=== PATIENT | female | born 1975 | race Caucasian/White ===

== ENCOUNTER 2020-08-02 09:44 | Outpatient (REF) | payer OTHER, SELFPAY ==
[2020-08-04 19:23] LABS: TS Negative Control Passed; TS Panel A 0; TS Panel B 0; TS Positive Control Passed; TSpotTB Negative (SeeBelow)
== END 2020-08-02 09:45 | disposition home or self-care (01) ==
LOC: HO.HMGCLDS 09:44
PROVIDERS: PCP Internal Medicine; Visit Provider Internal Medicine
DX: Z11.1 Encounter for screening for respiratory tuberculosis (principal)
CPT/HCPCS: 86481

== ENCOUNTER 2021-06-06 14:19 | Outpatient (REF) | payer OTHER, SELFPAY ==
[2021-06-06 16:24] LABS: MANUAL DIFF FLAG NO
[2021-06-06 16:29] LABS: Basophils Absolute Auto 0.1 X10*3/uL (0.0-0.2); Basophils Percent Auto 0.5 % (0-2); Eosinophils Absolute Auto 0.1 X10*3/uL (0.0-0.4); Eosinophils Percent Auto 1.1 % (0-4); Hematocrit 35.1 % (37-47); Hemoglobin 11.7 g/dl (12.0-16.0); Imm Gran Abs Auto 0.03 X10*3/uL (0.00-0.03); Imm Gran Pct Auto 0.3 % (0.0-0.4); Lymphocytes Absolute Auto 2.1 X10*3/uL (1.2-4.9); Lymphocytes Percent Auto 20.4 % (20-40); Mean Corpuscular HGB Conc 33.3 g/dl (31.0-35.0); Mean Corpuscular Hemoglobin 31.5 pg (27.0-33.0); Mean Corpuscular Volume 94.6 fL (80-98); Mean Platelet Volume 10.7 fL (9.4-12.3); Monocytes Absolute Auto 0.7 X10*3/uL (0.1-1.2); Monocytes Percent Auto 7.2 % (2-11); Neutrophils Absolute Auto 7.2 X10*3/uL (2.0-8.3); Neutrophils Percent Auto 70.5 % (45-73); Platelet Count 320 X10*3/uL (160-400); Red Blood Count 3.71 X10*6/uL (4.20-5.50); Red Cell Distribution Width 12.4 % (11.0-16.0); White Blood Count 10.2 X10*3/uL (4.8-10.8)
[2021-06-06 16:38] LABS: Alanine Aminotransferase 12 U/L (0-31); Albumin Level 4.4 g/dL (3.5-5.0); Alkaline Phosphatase 53 U/L (39-117); Anion Gap 14 (12-20); Aspartate Amino Transferase 14 U/L (5-31); Bilirubin Total 0.4 mg/dL (0.0-1.0); Blood Urea Nitrogen 17 mg/dL (9-16); Calcium 9.3 mg/dL (8.4-10.2); Carbon Dioxide 24 mmol/L (22-29); Chloride 108 mmol/L (96-108); Estimated Glomerular Filt Rate > 60; Glucose Random 85 mg/dL (60-115); Potassium 4.6 mmol/L (3.3-5.1); Sodium 141 mmol/L (135-145); Total Protein 6.9 g/dL (6.5-8.0)
== END 2021-06-06 14:20 | disposition home or self-care (01) ==
LOC: HO.HMGCLDS 14:19
PROVIDERS: PCP Internal Medicine; Visit Provider Internal Medicine
DX: F31.9 Bipolar disorder, unspecified (principal); J45.40 Moderate persistent asthma, uncomplicated; Z91.09 Other allergy status, other than to drugs and biological substances
CPT/HCPCS: 36415; 80053; 85025

== ENCOUNTER 2021-07-20 08:45 | Emergency (ER) | payer OTHER, SELFPAY ==
--- NOTE | ~2021-07-20 | CT_ITS ---
EXAMINATION: CT ABDOMEN AND PELVIS WITH CONTRAST CLINICAL INFORMATION: Abdominal pain with nausea and vomiting. COMPARISON: Pelvic ultrasound of 12/13/2009 and abdominal ultrasound of 09/13/2009. TECHNIQUE: Multidetector volumetric images were obtained from the superior aspect of the liver through the pubic symphysis following administration 85 mL of Omnipaque 350 intravenous contrast. Sagittal and coronal reformatted images were obtained on the technologist's workstation. Oral contrast: No This CT examination was performed using dose optimization techniques as appropriate, variously including the following: *Automated exposure control *Adjustment of mA and/or kV according to patient size (this includes techniques or standardized protocols for targeted exams where dose is matched to indication/reason for exam; i.e. extremities or head) *Use of iterative reconstruction technique DLP: 640 mGy-cm FINDINGS: LUNG BASES: The visualized lung bases are unremarkable. LIVER, GALLBLADDER, AND BILIARY TREE: The liver is normal in size, shape and attenuation. No intrahepatic biliary ductal dilatation. A 0.3 cm low-attenuation in the liver (series 3 image 17) is too small to characterize, statistically may represent a cyst or hemangioma. The gallbladder is unremarkable with no evidence of radiopaque gallstones, gallbladder wall thickening, or obvious pericholecystic inflammatory changes. PANCREAS: Unremarkable. SPLEEN: Unremarkable. ADRENAL GLANDS: Unremarkable. KIDNEYS AND URETERS: The kidneys are normal in size, shape, and attenuation. No hydronephrosis, hydroureter, or calculi seen. No perinephric stranding. A 0.4 cm low-attenuation lesion in the right mid kidney anteriorly is too small to characterize accurately, statistically may represent a cyst versus tiny angiomyolipoma. BLADDER: Unremarkable. GASTROINTESTINAL TRACT: The small and large bowel are unremarkable. The appendix is unremarkable. Small hiatal hernia. ABDOMINAL WALL: Small umbilical hernia containing fat. Small superior periumbilical hernia containing fat and fluid, measuring 2.9 x 3.0 x 3.6 cm, with the hernial neck measuring 0.9 x 0.6 cm in the craniocaudal and transverse dimension. LYMPH NODES: Normal. VASCULAR: Unremarkable. PELVIC VISCERA: Unremarkable. Changes suggestive of bilateral fallopian tubal ligation. OSSEOUS STRUCTURES: Unremarkable. CT/CT abdomen pelvis w con IMPRESSION: No acute or other significant abnormality is noted to explain the patient's symptoms. Small hiatal hernia. Umbilical and superior periumbilical hernias.
[2021-07-20] MEDS: ondansetron HCL 4 MG/2 ML VIAL IVPUSH ×2 (09:04→09:27)
[2021-07-20 09:05] VITALS: RESP 18
[2021-07-20] MEDS: Morphine Sulfate 4 MG/ML CARTRIDGE IVPUSH (09:05)
[2021-07-20 09:07] LABS: MANUAL DIFF FLAG NO
[2021-07-20] MEDS: 0.9 % Sodium Chloride 1,000 ML 999 ML IV (09:07)
[2021-07-20 09:08] VITALS: BP 129/76; PULSE 70; RESP 18; O2SAT 100
[2021-07-20 09:10] VITALS: BP 126/79; PULSE 70; RESP 18; O2SAT 100; BMI 33.3
[2021-07-20 09:10] LABS: Basophils Absolute Auto 0.1 X10*3/uL (0.0-0.2); Basophils Percent Auto 0.4 % (0-2); Eosinophils Absolute Auto 0.1 X10*3/uL (0.0-0.4); Eosinophils Percent Auto 0.5 % (0-4); Hematocrit 40.1 % (37.0-47.0); Hemoglobin 13.4 g/dl (12.0-16.0); Imm Gran Abs Auto 0.02 X10*3/uL (0.00-0.03); Imm Gran Pct Auto 0.2 % (0.0-0.4); Lymphocytes Absolute Auto 1.8 X10*3/uL (1.2-4.9); Lymphocytes Percent Auto 15.8 % (20-40); Mean Corpuscular HGB Conc 33.4 g/dl (31.0-35.0); Mean Corpuscular Hemoglobin 31.2 pg (27.0-33.0); Mean Corpuscular Volume 93.5 fL (80.0-98.0); Mean Platelet Volume 10.3 fL (9.4-12.3); Monocytes Absolute Auto 0.6 X10*3/uL (0.1-1.2); Monocytes Percent Auto 5.4 % (2-11); Neutrophils Absolute Auto 8.7 x10*3/uL (2.0-8.3); Neutrophils Percent Auto 77.7 % (45-73); Platelet Count 341 X10*3/uL (160-400); Red Blood Count 4.29 X10*6/uL (4.20-5.50); Red Cell Distribution Width 12.5 % (11.0-16.0); White Blood Count 11.2 X10*3/uL (4.8-10.8)
[2021-07-20 09:16] LABS: INTERNATIONAL NORM RATIO 0.9 (0.9-1.1); Prothrombin Time 10.3 SEC (9.9-13.0)
[2021-07-20 09:18] LABS: Partial Thromboplastin Time 36.3 SEC (24.1-38.0)
[2021-07-20] MEDS: Morphine Sulfate 2 MG/ML CARTRIDGE IVPUSH (09:25)
[2021-07-20 09:27] LABS: Alanine Aminotransferase 17 U/L (0-31); Albumin Level 4.6 g/dL (3.5-5.0); Alkaline Phosphatase 65 U/L (39-117); Anion Gap 18 (12-20); Aspartate Amino Transferase 21 U/L (5-31); Bilirubin Direct 0.2 mg/dL (0.0-0.5); Bilirubin Total 0.5 mg/dL (0.0-1.0); Blood Urea Nitrogen 16 mg/dL (9-16); Calcium 9.7 mg/dL (8.4-10.2); Carbon Dioxide 18 mmol/L (22-29); Chloride 107 mmol/L (96-108); Creatinine Clr Calc Pharmacy 93.9; Estimated Glomerular Filt Rate > 60; Glucose Random 121 mg/dL (60-115); Potassium 4.9 mmol/L (3.3-5.1); Sodium 138 mmol/L (135-145); Total Protein 7.8 g/dL (6.5-8.0)
[2021-07-20] MEDS: LORazepam 2 MG/ML VIAL 1 MG IVPUSH (09:27)
[2021-07-20 09:32] LABS: HCG Quantitative < 2 mIU/mL
[2021-07-20 09:39] LABS: Lipase 17 U/L (8-78)
--- NOTE | 2021-07-20 09:42 | ED_ITS ---
HPI - Abdominal Pain General Chief Complaint: Abdominal Pain Stated Complaint: ABD PAIN,N/V/D SINCE 229,FULLY VACCINATED Time Seen by Provider: 07/20/21 08:53 Source: patient Mode of arrival: ambulatory Limitations: no limitations History of Present Illness HPI narrative: 46-year-old female past medical history of IBS, bipolar disorder, asthma, presents to the ED for nausea, vomiting, abdominal pain, diarrhea that began this morning around 02:30. Patient states 5 episodes of diarrhea. Patient states episodes of vomiting. Patient states pain in lower abdomen. no blood in stool. Patient denies any recent long travel. Patient denies any recent hospital admission or any recent antibiotic use. Patient denies any symptoms. Related Data Home Medications Medication Instructions Recorded Confirmed gabapentin 600 mg tablet 600 mg PO TID 02/26/21 Previous Rx's Medication Instructions Recorded fluconazole 150 mg tablet 150 mg PO Q3D 1 Days #1 tab 02/26/21 (Diflucan) albuterol sulfate 90 mcg/actuation 2 puff INHALATION Q6H PRN 30 Days 04/14/21 aerosol inhaler #8.5 g cetirizine 10 mg capsule (Zyrtec) 10 mg PO DAILY PRN 30 Days #30 cap 06/16/21 fluticasone 232 mcg-salmeterol 14 1 inh INHALATION BID #1 ea 06/25/21 mcg/actuation breath activated powdr naproxen 500 mg tablet 500 mg PO BID PRN 10 Days #20 tab 07/20/21 ondansetron HCl 4 mg tablet 4 mg PO Q6H PRN 4 Days #12 tab 07/20/21 (Zofran) oxycodone-acetaminophen 5 mg-325 1 tab PO TID PRN #9 tab 07/20/21 mg tablet (Percocet) Allergies Allergy/AdvReac Type Severity Reaction Status Date / Time divalproex sodium [Depakote] Allergy Unknown Verified 03/05/20 00:00 Review of Systems Review of Systems Yes all other systems are reviewed and are negative Constitutional: Reports as per HPI and Reports no additional constitutional complaints Eyes: Reports as per HPI and Reports no additional eye complaints Reports system reviewed and no additional complaints, except as documented and Reports as per HPI Cardiovascular: Reports as per HPI and Reports no additional cardiovascular complaints Respiratory: Reports as per HPI and Reports no additional respiratory complaints Gastrointestinal: Reports as per HPI, Reports no additional gastrointestinal complaints, Reports abdominal pain, Reports diarrhea, Reports nausea and Reports vomiting Genitourinary: Reports no additional female genitourinary complaints and Reports as per HPI Musculoskeletal: Reports no additional musculoskeletal complaints and Reports as per HPI Reports system reviewed and no additional complaints, except as documented and Reports as per HPI Psychiatric: Reports no additional psychiatric complaints and Reports as per HPI Physical Exam Vital Signs: Vital Signs: Last Vital Signs Pulse 77 07/20/21 13:01 Resp 19 07/20/21 13:01 BP 144/82 H 07/20/21 13:01 Pulse Ox 100 07/20/21 09:10 Body Mass Index 33.3 Const: General: cooperative, healthy appearing, comfortable, no acute distress, well developed, alert and awake Orientation/consciousness: patient oriented x3 HENMT: Head: Yes normal to inspection, Yes No palpable skull fracture present, Yes normocephalic, Yes atraumatic and No abrasion Eyes: General: appearance normal, both eyes and all related structures Neck: Neck: Yes normal visual inspection, Yes full ROM, Yes no lymphadenopathy, Yes no meningeal signs, Yes trachea midline, Yes supple, No anterior neck swelling and No tender Chest: Chest palpation & inspection: normal inspection of the chest and normal palpation of entire chest wall Resp: Effort & Inspection: normal respiratory effort and able to speak in complete sentences Auscultation: clear to auscultation bilaterally Cardio: Jugular venous distension: no JVD Heart sounds: S1 normal heart sound present and S2 normal heart sound present GI: Inspection: Yes normal to inspection and No abdominal wall ecchymosis Palpation (GI): Soft to palpation, not firm, Tenderness to palpation present (GI) (Generalized tenderness), Guarding due to palpation present (GI) and not rigid : General: No CVA tenderness and Yes no CVA tenderness Back/Spine/Pelvis: Back: no CVA tenderness, No CVA tenderness and No back tenderness Skin: General skin exam: no rashes or lesions noted and elasticity normal Neuro: General: patient oriented x3, gait normal, no meningeal signs and CN's II-XI intact bilaterally Cranial nerves: Yes CN's II-XII intact bilaterally Extrem: General: Yes normal to inspection and Yes full ROM Psych: Appearance: grossly normal, well kempt and not disheveled Course Course Course Narrative: Patient will have labs drawn, pain medication, IV fluids. Patient admits she is not . Reevaluation(s) Reevaluation #1: negative. Was sent for CT scan. Do not suspect ectopic . Morphine, Ativan, fluids ordered. COVID Riggs ordered. Patient informed to give a stool sample. Reevaluation #2: Abdominal CT scan came back normal and only shows hernias that are not incacerated. UA negative. Patient states no longer able to give any stool sample. Patient given given Toradol. Patient states some pain relief but still having pain. Abdomen re-examined and not tender on palpation. Option of admission for intractable abdominal pain was discussed with patient, but patient refused and preferred to go home and try p.o. medications. Patient states if she does not improve she would return to the ED. I do not Suspect cardiac etiology. Patient woke up with lower abdominal pain with nausea, vomiting, and diarrhea. patient's covid swab is negatvie. Time: 12:49 MDM - Abdominal Pain MDM Narrative Medical decision making narrative: gastroenteritis/abdominal pain Lab Data Result diagrams: 07/20/21 09:01 07/20/21 09:01 Labs: Lab Results 07/20/21 07/20/21 07/20/21 Range/Units 09:01 09:01 09:01 WBC 11.2 H (4.8-10.8) X10*3/uL RBC 4.29 (4.20-5.50) X10*6/uL Hgb 13.4 (12.0-16.0) g/dl Hct 40.1 (37.0-47.0) % MCV 93.5 (80.0-98.0) fL MCH 31.2 (27.0-33.0) pg MCHC 33.4 (31.0-35.0) g/dl RDW 12.5 (11.0-16.0) % Plt Count 341 (160-400) X10*3/uL MPV 10.3 (9.4-12.3) fL Immature Gran % (Auto) 0.2 (0.0-0.4) % Neut % (Auto) 77.7 H (45-73) % Lymph % (Auto) 15.8 L (20-40) % [place] % (Auto) 5.4 (2-11) % Eos % (Auto) 0.5 (0-4) % Baso % (Auto) 0.4 (0-2) % Lymph # (Auto) 1.8 (1.2-4.9) X10*3/uL [place] # (Auto) 0.6 (0.1-1.2) X10*3/uL Eos # (Auto) 0.1 (0.0-0.4) X10*3/uL Baso # (Auto) 0.1 (0.0-0.2) X10*3/uL Abs Immat Gran (auto) 0.02 (0.00-0.03) X10*3/uL Absolute Neuts (auto) 8.7 H (2.0-8.3) x10*3/uL Absolute Nucleated RBC 0.000 (0.0-0.012) X10*3/uL Nucleated RBC % (auto) 0.0 (0.0-0.2) /100WBC PT 10.3 (9.9-13.0) SEC INR 0.9 (0.9-1.1) APTT 36.3 (24.1-38.0) SEC Sodium 138 (135-145) mmol/L Potassium 4.9 (3.3-5.1) mmol/L Chloride 107 (96-108) mmol/L Carbon Dioxide 18 L (22-29) mmol/L Anion Gap 18 (12-20) BUN 16 (9-16) mg/dL Creatinine 0.85 (0.5-1.4) mg/dL Estim Creat Clear Calc 93.9 Estimated GFR > 60 Random Glucose 121 H (60-115) mg/dL Calcium 9.7 (8.4-10.2) mg/dL Total Bilirubin 0.5 (0.0-1.0) mg/dL Direct Bilirubin 0.2 (0.0-0.5) mg/dL AST 21 D (5-31) U/L ALT 17 (0-31) U/L Alkaline Phosphatase 65 D (39-117) U/L Total Protein 7.8 (6.5-8.0) g/dL Albumin 4.6 (3.5-5.0) g/dL Lipase 17 (8-78) U/L Beta HCG, Quant < 2 mIU/mL Urine Color Urine Appearance Urine pH (5.0-8.0) Ur Specific [place] (1.005-1.025) Urine Protein (NEG-TRACE) MG/DL Urine Glucose (UA) (NEG) MG/DL Urine Ketones (NEG) MG/DL Urine Blood (NEG) Urine Nitrite (NEG) Ur Leukocyte Esterase (NEG) Urine Test (NEGATIVE) COVID-19 (JAY) (Negative) COVID-19 Clin Com 07/20/21 07/20/21 07/20/21 Range/Units 10:32 11:29 11:29 WBC (4.8-10.8) X10*3/uL RBC (4.20-5.50) X10*6/uL Hgb (12.0-16.0) g/dl Hct (37.0-47.0) % MCV (80.0-98.0) fL MCH (27.0-33.0) pg MCHC (31.0-35.0) g/dl RDW (11.0-16.0) % Plt Count (160-400) X10*3/uL MPV (9.4-12.3) fL Immature Gran % (Auto) (0.0-0.4) % Neut % (Auto) (45-73) % Lymph % (Auto) (20-40) % [place] % (Auto) (2-11) % Eos % (Auto) (0-4) % Baso % (Auto) (0-2) % Lymph # (Auto) (1.2-4.9) X10*3/uL [place] # (Auto) (0.1-1.2) X10*3/uL Eos # (Auto) (0.0-0.4) X10*3/uL Baso # (Auto) (0.0-0.2) X10*3/uL Abs Immat Gran (auto) (0.00-0.03) X10*3/uL Absolute Neuts (auto) (2.0-8.3) x10*3/uL Absolute Nucleated RBC (0.0-0.012) X10*3/uL Nucleated RBC % (auto) (0.0-0.2) /100WBC PT (9.9-13.0) SEC INR (0.9-1.1) APTT (24.1-38.0) SEC Sodium (135-145) mmol/L Potassium (3.3-5.1) mmol/L Chloride (96-108) mmol/L Carbon Dioxide (22-29) mmol/L Anion Gap (12-20) BUN (9-16) mg/dL Creatinine (0.5-1.4) mg/dL Estim Creat Clear Calc Estimated GFR Random Glucose (60-115) mg/dL Calcium (8.4-10.2) mg/dL Total Bilirubin (0.0-1.0) mg/dL Direct Bilirubin (0.0-0.5) mg/dL AST (5-31) U/L ALT (0-31) U/L Alkaline Phosphatase (39-117) U/L Total Protein (6.5-8.0) g/dL Albumin (3.5-5.0) g/dL Lipase (8-78) U/L Beta HCG, Quant mIU/mL Urine Color YELLOW Urine Appearance CLEAR Urine pH 7.5 (5.0-8.0) Ur Specific [place] 1.020 (1.005-1.025) Urine Protein NEG (NEG-TRACE) MG/DL Urine Glucose (UA) NEG (NEG) MG/DL Urine Ketones NEG (NEG) MG/DL Urine Blood NEG (NEG) Urine Nitrite NEG (NEG) Ur Leukocyte Esterase NEG (NEG) Urine Test NEGATIVE (NEGATIVE) COVID-19 (JAY) Negative (Negative) COVID-19 Clin Com See Note Discharge Plan Discharge Clinical Impression: Gastroenteritis, Abdominal pain Patient Disposition: Home, Self-Care Instructions: Gastroenteritis (ED), Abdominal Pain (ED) Additional Instructions: Please follow-up with your primary care provider tomorrow for stool culture due to diarrhea with abdominal pain. Return to ED for any worsening abdominal pain, vomiting, diarrhea with blood, fever, chills, chest pain, shortness of breath, dysuria, hematuria, flank pain, dizziness, or any other concerning symptoms. or any other concerning symptoms. Prescriptions: New naproxen 500 mg tablet 500 mg PO BID PRN (Reason: pain) 10 Days Qty: 20 RF: 0 ondansetron HCl [Zofran] 4 mg tablet 4 mg PO Q6H PRN (Reason: pain) 4 Days Qty: 12 RF: 0 oxycodone-acetaminophen [Percocet] 5-325 mg tablet 1 tab PO TID PRN (Reason: pain) Qty: 9 RF: 0 No Action albuterol sulfate 90 mcg/actuation HFA aerosol inhaler 2 puff inhalation Q6H PRN (Reason: bronchospasm) 30 Days Qty: 8.5 RF: 0 Zyrtec 10 mg capsule 10 mg PO DAILY PRN (Reason: allergy symptoms) 30 Days Qty: 30 RF: 0 fluticasone propion-salmeterol 232-14 mcg/actuation aerosol powdr breath activated 1 inh inhalation BID Qty: 1 RF: 0 gabapentin 600 mg tablet 600 mg PO TID RF: 0 fluconazole [Diflucan] 150 mg tablet 150 mg PO Q3D 1 Days Qty: 1 RF: 0 Stand Alone Forms: Work/School Release Interventions: ED Discharge Assessment Last Done: 07/20/21 13:02 Discharge Date/Time: 07/20/21 13:03 Print Language: Icelandic [facility] Family History Family History (Updated 02/26/21 @ 10:56 by Lula Jones CMA) Other Mental health disorder Social History Social History Housing: Apartment Patient Tobacco Use Status: Former Tobacco user Advance Directives: No Patient : No Current occupational status: unemployed
[2021-07-20 10:51] LABS: COVID-19 Test Negative (Negative)
[2021-07-20] MEDS: iohexoL 350 MG/ML 100 ML INFUS..BTL 85 ML IV (11:13)
[2021-07-20] MEDS: Metoclopramide HCl 10 MG/2 ML VIAL IVPUSH (11:20)
[2021-07-20 11:39] LABS: Appearance Urine CLEAR; Color Urine YELLOW; Glucose Urine UA NEG (NEG); Leukocyte Esterase Urine NEG (NEG); Nitrite Urine NEG (NEG); PH 7.5 (5.0-8.0); Urine Blood NEG (NEG); Urine Ketones NEG (NEG); Urine Protein NEG (NEG-TRACE)
[2021-07-20 11:44] LABS: UPreg QC Valid YES; Urine Pregnancy NEGATIVE (NEGATIVE)
[2021-07-20] MEDS: Ketorolac Tromethamine 15 MG/ML VIAL 30 MG IVPUSH (12:19)
[2021-07-20 13:01] VITALS: BP 144/82; PULSE 77; RESP 19
== END 2021-07-20 13:03 | disposition home or self-care (01) ==
PROVIDERS: Physician Assistant; Emergency Provider Emergency Medicine Emergency Medical Services; PCP Internal Medicine
DX: K52.9 Noninfective gastroenteritis and colitis, unspecified (principal); Z20.822 Contact with and (suspected) exposure to COVID-19; Z79.899 Other long term (current) drug therapy
CPT/HCPCS: 36415; 74177; 80053; 81003; 81025; 82248; 83690; 84702; 85025; 85610; 85730; 87635; 96361; 96374; 96375; 96376; 99284; J1885; J2060; J2270; J2405; J2765; Q9967

== ENCOUNTER 2021-07-22 06:42 | Emergency (ER) | payer OTHER, SELFPAY ==
--- NOTE | ~2021-07-22 | CT_ITS ---
EXAMINATION: CT ABDOMEN AND PELVIS WITH CONTRAST CLINICAL INFORMATION: Diffuse abdominal pain COMPARISON: Previous CT of the abdomen and pelvis most recent 07/20/2021 TECHNIQUE: Multidetector volumetric images were obtained from the superior aspect of the liver through the pubic symphysis following administration 85 mL of Omnipaque 350 intravenous contrast. Sagittal and coronal reformatted images were obtained on the technologist's workstation. Oral contrast: Yes This CT examination was performed using dose optimization techniques as appropriate, variously including the following: *Automated exposure control *Adjustment of mA and/or kV according to patient size (this includes techniques or standardized protocols for targeted exams where dose is matched to indication/reason for exam; i.e. extremities or head) *Use of iterative reconstruction technique DLP: 691 mGy-cm FINDINGS: LUNG BASES: The visualized lung bases are unremarkable. LIVER, GALLBLADDER, AND BILIARY TREE: There is a small 3 mm low-attenuation lesion in the medial segment the left lobe of the liver that is stable. This is too small to definitively characterize but may represent a small cyst. The liver is otherwise unremarkable. The gallbladder is unremarkable. PANCREAS: Unremarkable. SPLEEN: Unremarkable. ADRENAL GLANDS: Unremarkable. KIDNEYS AND URETERS: The kidneys are normal in size, shape, and attenuation. No hydronephrosis, hydroureter, or calculi seen. No perinephric stranding. BLADDER: Unremarkable. GASTROINTESTINAL TRACT: There is mild wall thickening of the colon questionable for colitis. The small and large bowel is otherwise unremarkable. The appendix is unremarkable. ABDOMINAL WALL: There are small umbilical and supraumbilical hernias containing fat. LYMPH NODES: Normal. VASCULAR: Unremarkable. PELVIC VISCERA: Unremarkable. OSSEOUS STRUCTURES: Unremarkable. CT/CT abdomen pelvis w con IMPRESSION: Question mild colitis. Fleischner guidelines were followed.
[2021-07-22 06:52] VITALS: BP 172/72; PULSE 116; RESP 18; TEMP 36.7; O2SAT 97; BMI 31.8
--- NOTE | 2021-07-22 07:57 | ED.ABDPAIN ---
HPI - Abdominal Pain General Chief Complaint: Abdominal Pain Stated Complaint: N/V/D Time Seen by Provider: 07/22/21 07:45 Source: patient Mode of arrival: ambulatory Limitations: no limitations History of Present Illness HPI narrative: Patient was seen 2 days prior had a workup including a CT that was negative, now back screaming in pain. patient with vomiting and diarrhea. MD elicited complaint: abdominal pain Onset (ago): hour(s) Pain Consistency: constant Location: diffuse Severity: severe Quality: cramping Associated symptoms: nausea, vomiting and diarrhea Related Data Home Medications Medication Instructions Recorded Confirmed gabapentin 600 mg tablet 600 mg PO TID 02/26/21 Previous Rx's Medication Instructions Recorded fluconazole 150 mg tablet 150 mg PO Q3D 1 Days #1 tab 02/26/21 (Diflucan) albuterol sulfate 90 mcg/actuation 2 puff INHALATION Q6H PRN 30 Days 04/14/21 aerosol inhaler #8.5 g cetirizine 10 mg capsule (Zyrtec) 10 mg PO DAILY PRN 30 Days #30 cap 06/16/21 fluticasone 232 mcg-salmeterol 14 1 inh INHALATION BID #1 ea 06/25/21 mcg/actuation breath activated powdr naproxen 500 mg tablet 500 mg PO BID PRN 10 Days #20 tab 07/20/21 ondansetron HCl 4 mg tablet 4 mg PO Q6H PRN 4 Days #12 tab 07/20/21 (Zofran) oxycodone-acetaminophen 5 mg-325 1 tab PO TID PRN #9 tab 07/20/21 mg tablet (Percocet) ciprofloxacin HCl 500 mg tablet 500 mg PO BID #20 tab 07/22/21 (Cipro) metronidazole 500 mg tablet 500 mg PO TID #30 tab 07/22/21 Allergies Allergy/AdvReac Type Severity Reaction Status Date / Time divalproex sodium [Depakote] Allergy Unknown Verified 03/05/20 00:00 Review of Systems Constitutional: Reports no additional constitutional complaints Eyes: Reports no additional eye complaints Denies dizziness Cardiovascular: Reports no additional cardiovascular complaints Respiratory: Reports as per HPI Gastrointestinal: Reports no additional gastrointestinal complaints Genitourinary: Reports no additional female genitourinary complaints Musculoskeletal: Reports no additional musculoskeletal complaints Skin/Breast: Denies rash Reports system reviewed and no additional complaints, except as documented, Denies dizziness and Denies Sensory deficit (Neuro) Psychiatric: Denies anxiety Physical Exam Vital Signs: Vital Signs: Last Vital Signs Temp 98.1 F 07/22/21 06:52 Pulse 90 07/22/21 08:38 Resp 20 07/22/21 08:38 BP 116/55 L 07/22/21 11:17 Pulse Ox 97 07/22/21 08:38 Body Mass Index 31.8 Const: Other: female screaming, crying, moaning in pain. pain and out of proportion to physical exam Nutritional Appearance: average body habitus Orientation/consciousness: oriented to person and patient oriented x3 Limitations: no limitations HENMT: Head: Yes normal to inspection Ears: external ears normal General nose exam: Normal external nose present Mouth: Normal oral and palatal mucosa present and oropharynx normal Throat: Yes posterior oropharynx normal Eyes: General: appearance normal, both eyes and all related structures Neck: Other: supple Neck: Yes normal visual inspection Chest: Chest palpation & inspection: normal inspection of the chest Resp: Auscultation: clear to auscultation bilaterally Cardio: Jugular venous distension: no JVD Rate: regular rate Rhythm: regular rhythm Heart sounds: S1 normal heart sound present and S2 normal heart sound present GI: Inspection: Yes normal to inspection Palpation (GI): Soft to palpation, nontender and No hepatosplenomegaly present Auscultation: normal bowel sounds : General: Yes no CVA tenderness Back/Spine/Pelvis: Back: no CVA tenderness Skin: General skin exam: no rashes or lesions noted Neuro: General: oriented to person and patient oriented x3 Cranial nerves: Yes CN's II-XII intact bilaterally Motor exam (neuro): 5/5 motor strength present throughout Sensory Exam: No Sensory deficit (Neuro) Extrem: General: Yes normal to inspection Psych: Appearance: grossly normal Course Reevaluation(s) Reevaluation #1: Discussed with mother who is nursing mixing place supervisor, will CT again with IV contrast Time: 09:36 Reevaluation #2: very mild colitis seen on CT, will have patient give stool sample and check for cdiff Time: 12:09 MDM - Abdominal Pain Lab Data Result diagrams: 07/22/21 08:16 07/22/21 08:16 Labs: Lab Results 07/22/21 07/22/21 07/22/21 Range/Units 08:16 08:16 11:18 WBC 12.1 H (4.8-10.8) X10*3/uL RBC 3.88 L (4.20-5.50) X10*6/uL Hgb 11.9 L (12.0-16.0) g/dl Hct 36.4 L (37.0-47.0) % MCV 93.8 (80.0-98.0) fL MCH 30.7 (27.0-33.0) pg MCHC 32.7 (31.0-35.0) g/dl RDW 12.4 (11.0-16.0) % Plt Count 303 (160-400) X10*3/uL MPV 10.4 (9.4-12.3) fL Immature Gran % (Auto) 0.5 H (0.0-0.4) % Neut % (Auto) 82.1 H (45-73) % Lymph % (Auto) 11.5 L (20-40) % [place] % (Auto) 5.2 (2-11) % Eos % (Auto) 0.3 (0-4) % Baso % (Auto) 0.4 (0-2) % Lymph # (Auto) 1.4 (1.2-4.9) X10*3/uL [place] # (Auto) 0.6 (0.1-1.2) X10*3/uL Eos # (Auto) 0.0 (0.0-0.4) X10*3/uL Baso # (Auto) 0.1 (0.0-0.2) X10*3/uL Abs Immat Gran (auto) 0.06 H (0.00-0.03) X10*3/uL Absolute Neuts (auto) 9.9 H (2.0-8.3) x10*3/uL Absolute Nucleated RBC 0.000 (0.0-0.012) X10*3/uL Nucleated RBC % (auto) 0.0 (0.0-0.2) /100WBC Sodium 141 (135-145) mmol/L Potassium 3.7 D (3.3-5.1) mmol/L Chloride 111 H (96-108) mmol/L Carbon Dioxide 21 L (22-29) mmol/L Anion Gap 13 (12-20) BUN 17 H (9-16) mg/dL Creatinine 0.84 (0.5-1.4) mg/dL Estim Creat Clear Calc 93.1 Estimated GFR > 60 Random Glucose 122 H (60-115) mg/dL Calcium 9.0 D (8.4-10.2) mg/dL Total Bilirubin 0.5 (0.0-1.0) mg/dL AST 15 (5-31) U/L ALT 13 (0-31) U/L Alkaline Phosphatase 56 (39-117) U/L Total Protein 6.6 (6.5-8.0) g/dL Albumin 4.2 (3.5-5.0) g/dL Lipase 20 (8-78) U/L Urine Color YELLOW Urine Appearance CLEAR Urine pH 5.5 (5.0-8.0) Ur Specific [place] 1.010 (1.005-1.025) Urine Protein NEG (NEG-TRACE) MG/DL Urine Glucose (UA) NEG (NEG) MG/DL Urine Ketones 15 (NEG) MG/DL Urine Blood NEG (NEG) Urine Nitrite NEG (NEG) Ur Leukocyte Esterase NEG (NEG) Urine Opiates Screen (Not Detect) Urine Fentanyl Screen (Not Detect) Ur Barbiturates Screen (Not Detect) Ur Phencyclidine Scrn (Not Detect) Ur Amphetamines Screen (Not Detect) U Benzodiazepines Scrn (Not Detect) Urine Cocaine Screen (Not Detect) U Marijuana (THC) Screen (Not Detect) 07/22/21 Range/Units 11:18 WBC (4.8-10.8) X10*3/uL RBC (4.20-5.50) X10*6/uL Hgb (12.0-16.0) g/dl Hct (37.0-47.0) % MCV (80.0-98.0) fL MCH (27.0-33.0) pg MCHC (31.0-35.0) g/dl RDW (11.0-16.0) % Plt Count (160-400) X10*3/uL MPV (9.4-12.3) fL Immature Gran % (Auto) (0.0-0.4) % Neut % (Auto) (45-73) % Lymph % (Auto) (20-40) % [place] % (Auto) (2-11) % Eos % (Auto) (0-4) % Baso % (Auto) (0-2) % Lymph # (Auto) (1.2-4.9) X10*3/uL [place] # (Auto) (0.1-1.2) X10*3/uL Eos # (Auto) (0.0-0.4) X10*3/uL Baso # (Auto) (0.0-0.2) X10*3/uL Abs Immat Gran (auto) (0.00-0.03) X10*3/uL Absolute Neuts (auto) (2.0-8.3) x10*3/uL Absolute Nucleated RBC (0.0-0.012) X10*3/uL Nucleated RBC % (auto) (0.0-0.2) /100WBC Sodium (135-145) mmol/L Potassium (3.3-5.1) mmol/L Chloride (96-108) mmol/L Carbon Dioxide (22-29) mmol/L Anion Gap (12-20) BUN (9-16) mg/dL Creatinine (0.5-1.4) mg/dL Estim Creat Clear Calc Estimated GFR Random Glucose (60-115) mg/dL Calcium (8.4-10.2) mg/dL Total Bilirubin (0.0-1.0) mg/dL AST (5-31) U/L ALT (0-31) U/L Alkaline Phosphatase (39-117) U/L Total Protein (6.5-8.0) g/dL Albumin (3.5-5.0) g/dL Lipase (8-78) U/L Urine Color Urine Appearance Urine pH (5.0-8.0) Ur Specific [place] (1.005-1.025) Urine Protein (NEG-TRACE) MG/DL Urine Glucose (UA) (NEG) MG/DL Urine Ketones (NEG) MG/DL Urine Blood (NEG) Urine Nitrite (NEG) Ur Leukocyte Esterase (NEG) Urine Opiates Screen POSITIVE H (Not Detect) Urine Fentanyl Screen Not Detected (Not Detect) Ur Barbiturates Screen Not Detected (Not Detect) Ur Phencyclidine Scrn Not Detected (Not Detect) Ur Amphetamines Screen Not Detected (Not Detect) U Benzodiazepines Scrn Not Detected (Not Detect) Urine Cocaine Screen Not Detected (Not Detect) U Marijuana (THC) Screen POSITIVE H (Not Detect) Discharge Plan Discharge Clinical Impression: Colitis Patient Disposition: Home, Self-Care Instructions: Colitis (ED) Additional Instructions: clear liquid diet for 48 hours Prescriptions: New ciprofloxacin HCl [Cipro] 500 mg tablet 500 mg PO BID Qty: 20 RF: 0 metronidazole 500 mg tablet 500 mg PO TID Qty: 30 RF: 0 No Action albuterol sulfate 90 mcg/actuation HFA aerosol inhaler 2 puff inhalation Q6H PRN (Reason: bronchospasm) 30 Days Qty: 8.5 RF: 0 Zyrtec 10 mg capsule 10 mg PO DAILY PRN (Reason: allergy symptoms) 30 Days Qty: 30 RF: 0 fluticasone propion-salmeterol 232-14 mcg/actuation aerosol powdr breath activated 1 inh inhalation BID Qty: 1 RF: 0 naproxen 500 mg tablet 500 mg PO BID PRN (Reason: pain) 10 Days Qty: 20 RF: 0 ondansetron HCl [Zofran] 4 mg tablet 4 mg PO Q6H PRN (Reason: pain) 4 Days Qty: 12 RF: 0 oxycodone-acetaminophen [Percocet] 5-325 mg tablet 1 tab PO TID PRN (Reason: pain) Qty: 9 RF: 0 gabapentin 600 mg tablet 600 mg PO TID RF: 0 fluconazole [Diflucan] 150 mg tablet 150 mg PO Q3D 1 Days Qty: 1 RF: 0 Referrals: Shonda Caldwell MD [Primary Care Provider] - 5 days [facility] Family History Family History (Updated 02/26/21 @ 10:56 by Lula Jones CMA) Other Mental health disorder Social History Social History Housing: Apartment Patient Tobacco Use Status: Former Tobacco user Advance Directives: No Advance Directives Information Provided: No Current occupational status: unemployed
[2021-07-22 08:08] VITALS: BP 152/90; PULSE 79; RESP 20; O2SAT 97
[2021-07-22 08:20] LABS: MANUAL DIFF FLAG NO
[2021-07-22 08:24] LABS: Basophils Absolute Auto 0.1 X10*3/uL (0.0-0.2); Basophils Percent Auto 0.4 % (0-2); Eosinophils Percent Auto 0.3 % (0-4); Hematocrit 36.4 % (37.0-47.0); Hemoglobin 11.9 g/dl (12.0-16.0); Imm Gran Abs Auto 0.06 X10*3/uL (0.00-0.03); Imm Gran Pct Auto 0.5 % (0.0-0.4); Lymphocytes Absolute Auto 1.4 X10*3/uL (1.2-4.9); Lymphocytes Percent Auto 11.5 % (20-40); Mean Corpuscular HGB Conc 32.7 g/dl (31.0-35.0); Mean Corpuscular Hemoglobin 30.7 pg (27.0-33.0); Mean Corpuscular Volume 93.8 fL (80.0-98.0); Mean Platelet Volume 10.4 fL (9.4-12.3); Monocytes Absolute Auto 0.6 X10*3/uL (0.1-1.2); Monocytes Percent Auto 5.2 % (2-11); Neutrophils Absolute Auto 9.9 x10*3/uL (2.0-8.3); Neutrophils Percent Auto 82.1 % (45-73); Platelet Count 303 X10*3/uL (160-400); Red Blood Count 3.88 X10*6/uL (4.20-5.50); Red Cell Distribution Width 12.4 % (11.0-16.0); White Blood Count 12.1 X10*3/uL (4.8-10.8)
[2021-07-22] MEDS: 0.9 % Sodium Chloride 1,000 ML 999 ML IVCONT ×2 (08:28→09:23)
[2021-07-22] MEDS: Haloperidol Lactate 5 MG/ML VIAL IVPUSH (08:28)
[2021-07-22] MEDS: diphenhydrAMINE HCL 50 MG/ML VIAL 25 MG IVPUSH (08:29)
[2021-07-22] MEDS: Pantoprazole Sodium 40 MG/10 ML VIAL IVPUSH (08:29)
[2021-07-22 08:35] LABS: Alanine Aminotransferase 13 U/L (0-31); Albumin Level 4.2 g/dL (3.5-5.0); Alkaline Phosphatase 56 U/L (39-117); Anion Gap 13 (12-20); Aspartate Amino Transferase 15 U/L (5-31); Bilirubin Total 0.5 mg/dL (0.0-1.0); Blood Urea Nitrogen 17 mg/dL (9-16); Carbon Dioxide 21 mmol/L (22-29); Chloride 111 mmol/L (96-108); Creatinine Clr Calc Pharmacy 93.1; Estimated Glomerular Filt Rate > 60; Glucose Random 122 mg/dL (60-115); Lipase 20 U/L (8-78); Potassium 3.7 mmol/L (3.3-5.1); Sodium 141 mmol/L (135-145); Total Protein 6.6 g/dL (6.5-8.0)
[2021-07-22 08:38] VITALS: BP 148/90; PULSE 90; RESP 20; O2SAT 97
[2021-07-22] MEDS: Ketorolac Tromethamine 15 MG/ML VIAL 30 MG IVPUSH (10:21)
[2021-07-22] MEDS: iohexoL 350 MG/ML 100 ML INFUS..BTL IV (10:50)
[2021-07-22 11:17] VITALS: BP 116/55
[2021-07-22 11:23] LABS: Appearance Urine CLEAR; Color Urine YELLOW; Glucose Urine UA NEG (NEG); Leukocyte Esterase Urine NEG (NEG); Nitrite Urine NEG (NEG); PH 5.5 (5.0-8.0); Urine Blood NEG (NEG); Urine Ketones 15 MG/DL (NEG); Urine Protein NEG (NEG-TRACE)
[2021-07-22 11:41] LABS: Amphetamine Screen Urine Not Detected (Not Detect); Barbiturates, Urine Not Detected (Not Detect); Benzodiazepines Screen Urine Not Detected (Not Detect); Cannabinoid Screen Urine POSITIVE (Not Detect); Cocaine Screen Urine Not Detected (Not Detect); Fentanyl, urine Not Detected (Not Detect); Opiate Screen Urine POSITIVE (Not Detect); Phencyclidine Screen Urine Not Detected (Not Detect)
[2021-07-22] MEDS: PHENobarb/Hyoscy/Atropine/Scop 10 ML ELIXIR PO (11:42)
[2021-07-22] MEDS: metroNIDAZOLE 500 MG TABLET PO (12:29)
[2021-07-22] MEDS: levoFLOXacin 500 MG TABLET PO (12:29)
== END 2021-07-22 12:40 | disposition home or self-care (01) ==
PROVIDERS: Emergency Provider Emergency Medicine; PCP Internal Medicine
DX: K52.9 Noninfective gastroenteritis and colitis, unspecified (principal); R11.2 Nausea with vomiting, unspecified; F11.90 Opioid use, unspecified, uncomplicated; F12.90 Cannabis use, unspecified, uncomplicated
CPT/HCPCS: 36415; 74177; 80053; 80307; 81003; 83690; 85025; 96361; 96374; 96375; 99284; J1200; J1885; J2550; Q9967

== ENCOUNTER 2021-07-24 06:14 | Emergency (ER) | payer OTHER, SELFPAY ==
[2021-07-24 06:17] VITALS: BP 180/102; PULSE 86; O2SAT 98
[2021-07-24 06:24] VITALS: BP 169/107; PULSE 62; RESP 16; TEMP 36.8; O2SAT 99; BMI 33.3
--- NOTE | 2021-07-24 06:37 | ED_ITS ---
HPI - Abdominal Pain General Chief Complaint: Abdominal Pain Stated Complaint: abd pain Time Seen by Provider: 07/24/21 06:36 Source: patient Mode of arrival: ambulatory Limitations: no limitations History of Present Illness HPI narrative: This is the third visit in as many days for this patient with abdominal pain. Patient had a benign abdomen yesterday CT x 2 with second showed very mild colitis so I treated with cipro and flagyl. Patient placed on clear liquid diet yesterday for 48 hours. Her urine tox was positive for opiates and marijuana yesterday. MD elicited complaint: abdominal pain Onset (ago): day(s) Pain Consistency: constant Location: diffuse Severity: severe Quality: cramping and stabbing Associated symptoms: nausea, vomiting and diarrhea Related Data Home Medications Medication Instructions Recorded Confirmed gabapentin 600 mg tablet 600 mg PO TID 02/26/21 Previous Rx's Medication Instructions Recorded fluconazole 150 mg tablet 150 mg PO Q3D 1 Days #1 tab 02/26/21 (Diflucan) albuterol sulfate 90 mcg/actuation 2 puff INHALATION Q6H PRN 30 Days 04/14/21 aerosol inhaler #8.5 g cetirizine 10 mg capsule (Zyrtec) 10 mg PO DAILY PRN 30 Days #30 cap 06/16/21 fluticasone 232 mcg-salmeterol 14 1 inh INHALATION BID #1 ea 06/25/21 mcg/actuation breath activated powdr naproxen 500 mg tablet 500 mg PO BID PRN 10 Days #20 tab 07/20/21 ondansetron HCl 4 mg tablet 4 mg PO Q6H PRN 4 Days #12 tab 07/20/21 (Zofran) oxycodone-acetaminophen 5 mg-325 1 tab PO TID PRN #9 tab 07/20/21 mg tablet (Percocet) ciprofloxacin HCl 500 mg tablet 500 mg PO BID #20 tab 07/22/21 (Cipro) ketorolac 10 mg tablet 10 mg PO Q8H #15 tab 07/22/21 metronidazole 500 mg tablet 500 mg PO TID #30 tab 07/22/21 prednisone 20 mg tablet 60 mg PO DAILY #12 tab 07/24/21 Allergies Allergy/AdvReac Type Severity Reaction Status Date / Time divalproex sodium [Depakote] Allergy Unknown Verified 03/05/20 00:00 Review of Systems Constitutional: Reports no additional constitutional complaints Eyes: Reports no additional eye complaints Denies dizziness Cardiovascular: Reports no additional cardiovascular complaints Respiratory: Reports as per HPI Gastrointestinal: Reports no additional gastrointestinal complaints Genitourinary: Reports no additional female genitourinary complaints Musculoskeletal: Reports no additional musculoskeletal complaints Skin/Breast: Denies rash Reports system reviewed and no additional complaints, except as documented, De nies dizziness and Denies Sensory deficit (Neuro) Psychiatric: Denies anxiety Physical Exam Vital Signs: Vital Signs: Last Vital Signs Temp 98.2 F 07/24/21 06:24 Pulse 74 07/24/21 10:13 Resp 17 07/24/21 10:13 BP 160/76 H 07/24/21 10:13 Pulse Ox 97 07/24/21 07:51 Body Mass Index 33.3 Const: Other: Patient with pain out of proportion to physical findings Nutritional Appearance: average body habitus Orientation/consciousness: oriented to person and patient oriented x3 Limitations: no limitations HENMT: Head: Yes normal to inspection Ears: external ears normal General nose exam: Normal external nose present Mouth: Normal oral and palatal mucosa present and oropharynx normal Throat: Yes posterior oropharynx normal Eyes: General: appearance normal, both eyes and all related structures Neck: Other: supple Neck: Yes normal visual inspection Chest: Chest palpation & inspection: normal inspection of the chest Resp: Auscultation: clear to auscultation bilaterally Cardio: Jugular venous distension: no JVD Rate: regular rate Rhythm: regular rhythm Heart sounds: S1 normal heart sound present and S2 normal heart sound present GI: Other: the abdomen is soft nontender, non focal, no guarding or rebound good BS. : General: Yes no CVA tenderness Back/Spine/Pelvis: Back: no CVA tenderness Skin: General skin exam: no rashes or lesions noted Neuro: General: oriented to person and patient oriented x3 Cranial nerves: Yes CN's II-XII intact bilaterally Motor exam (neuro): 5/5 motor strength present throughout Sensory Exam: No Sensory deficit (Neuro) Extrem: General: Yes normal to inspection Psych: Other: Bizzarre affect with pain out of proportion to physical findings Course Reevaluation(s) Reevaluation #1: With pain out of proportion, normal vitals and labs I asked this patient if she was in opiate withdrawal which she denies. Abdomen remains soft non focal, will not re CT patient. Will continue cipro and flagyl and clear liquid diet for colitis. Time: 08:31 Reevaluation #2: Discussed with patient and her mother, discussed all results will consult Dr. Caldwell and ma home Time: 11:22 Reevaluation #3: Discussed with Dr. Guillen who suggested some steroids for a short course. Patient to [facility] Dr. Caldwell [facility] Time: 11:49 MDM - Abdominal Pain Lab Data Result diagrams: 07/24/21 06:39 07/24/21 06:39 Labs: Lab Results 07/24/21 07/24/21 07/24/21 Range/Units 06:39 06:39 07:48 WBC 10.0 (4.8-10.8) X10*3/uL RBC 3.81 L (4.20-5.50) X10*6/uL Hgb 11.7 L (12.0-16.0) g/dl Hct 35.5 L (37.0-47.0) % MCV 93.2 (80.0-98.0) fL MCH 30.7 (27.0-33.0) pg MCHC 33.0 (31.0-35.0) g/dl RDW 12.5 (11.0-16.0) % Plt Count 284 (160-400) X10*3/uL MPV 10.3 (9.4-12.3) fL Immature Gran % (Auto) 0.3 (0.0-0.4) % Neut % (Auto) 73.1 H (45-73) % Lymph % (Auto) 17.8 L (20-40) % [place] % (Auto) 7.3 (2-11) % Eos % (Auto) 1.0 (0-4) % Baso % (Auto) 0.5 (0-2) % Lymph # (Auto) 1.8 (1.2-4.9) X10*3/uL [place] # (Auto) 0.7 (0.1-1.2) X10*3/uL Eos # (Auto) 0.1 (0.0-0.4) X10*3/uL Baso # (Auto) 0.1 (0.0-0.2) X10*3/uL Abs Immat Gran (auto) 0.03 (0.00-0.03) X10*3/uL Absolute Neuts (auto) 7.3 (2.0-8.3) x10*3/uL Absolute Nucleated RBC 0.000 (0.0-0.012) X10*3/uL Nucleated RBC % (auto) 0.0 (0.0-0.2) /100WBC Sodium 141 (135-145) mmol/L Potassium 3.3 (3.3-5.1) mmol/L Chloride 109 H (96-108) mmol/L Carbon Dioxide 21 L (22-29) mmol/L Anion Gap 14 (12-20) BUN 12 (9-16) mg/dL Creatinine 0.88 (0.5-1.4) mg/dL Estim Creat Clear Calc 90.7 Estimated GFR > 60 Random Glucose 117 H (60-115) mg/dL Calcium 9.1 (8.4-10.2) mg/dL Total Bilirubin 0.5 (0.0-1.0) mg/dL AST 20 (5-31) U/L ALT 17 (0-31) U/L Alkaline Phosphatase 56 (39-117) U/L Total Protein 6.5 (6.5-8.0) g/dL Albumin 4.2 (3.5-5.0) g/dL C. difficile Tox B Gene NEGATIVE (Negative) Discharge Plan Discharge Clinical Impression: Colitis Irritable bowel syndrome Qualifiers: Irritable bowel syndrome type: with diarrhea Qualified Code(s): K58.0 - Irritable bowel syndrome with diarrhea Patient Disposition: Home, Self-Care Instructions: Irritable Bowel Syndrome (ED), Colitis (ED) Prescriptions: New prednisone 20 mg tablet 60 mg PO DAILY Qty: 12 RF: 0 No Action albuterol sulfate 90 mcg/actuation HFA aerosol inhaler 2 puff inhalation Q6H PRN (Reason: bronchospasm) 30 Days Qty: 8.5 RF: 0 Zyrtec 10 mg capsule 10 mg PO DAILY PRN (Reason: allergy symptoms) 30 Days Qty: 30 RF: 0 fluticasone propion-salmeterol 232-14 mcg/actuation aerosol powdr breath activated 1 inh inhalation BID Qty: 1 RF: 0 ciprofloxacin HCl [Cipro] 500 mg tablet 500 mg PO BID Qty: 20 RF: 0 metronidazole 500 mg tablet 500 mg PO TID Qty: 30 RF: 0 ketorolac 10 mg tablet 10 mg PO Q8H Qty: 15 RF: 0 naproxen 500 mg tablet 500 mg PO BID PRN (Reason: pain) 10 Days Qty: 20 RF: 0 ondansetron HCl [Zofran] 4 mg tablet 4 mg PO Q6H PRN (Reason: pain) 4 Days Qty: 12 RF: 0 oxycodone-acetaminophen [Percocet] 5-325 mg tablet 1 tab PO TID PRN (Reason: pain) Qty: 9 RF: 0 gabapentin 600 mg tablet 600 mg PO TID RF: 0 fluconazole [Diflucan] 150 mg tablet 150 mg PO Q3D 1 Days Qty: 1 RF: 0 Referrals: Shonda Caldwell MD [Primary Care Provider] - 1 day (See Dr. Caldwell in the office tomorrow or Dr. Chavez in the [facility] walk in) [facility] Family History Family History Other Mental health disorder Social History Social History Housing: Apartment Alcohol intake: never Patient Tobacco Use Status: Former Tobacco user Smoked in Last 30 Days: No Use of substances other than those prescribed or required for medical reasons: Yes Substance Use Type: Marijuana Substance Use Frequency: Daily Substance Use Frequency Other:: last smoked serjio 1 week ago Last Used Substance: Weeks (ago) Advance Directives: No Advance Directives Information Provided: Yes Patient : No Current occupational status: unemployed
[2021-07-24 06:43] LABS: MANUAL DIFF FLAG NO
[2021-07-24 06:44] LABS: Basophils Absolute Auto 0.1 X10*3/uL (0.0-0.2); Basophils Percent Auto 0.5 % (0-2); Eosinophils Absolute Auto 0.1 X10*3/uL (0.0-0.4); Hematocrit 35.5 % (37.0-47.0); Hemoglobin 11.7 g/dl (12.0-16.0); Imm Gran Abs Auto 0.03 X10*3/uL (0.00-0.03); Imm Gran Pct Auto 0.3 % (0.0-0.4); Lymphocytes Absolute Auto 1.8 X10*3/uL (1.2-4.9); Lymphocytes Percent Auto 17.8 % (20-40); Mean Corpuscular Hemoglobin 30.7 pg (27.0-33.0); Mean Corpuscular Volume 93.2 fL (80.0-98.0); Mean Platelet Volume 10.3 fL (9.4-12.3); Monocytes Absolute Auto 0.7 X10*3/uL (0.1-1.2); Monocytes Percent Auto 7.3 % (2-11); Neutrophils Absolute Auto 7.3 x10*3/uL (2.0-8.3); Neutrophils Percent Auto 73.1 % (45-73); Platelet Count 284 X10*3/uL (160-400); Red Blood Count 3.81 X10*6/uL (4.20-5.50); Red Cell Distribution Width 12.5 % (11.0-16.0)
[2021-07-24] MEDS: 0.9 % Sodium Chloride 1,000 ML 999 ML IVCONT ×2 (06:47→07:42)
[2021-07-24 07:01] LABS: Alanine Aminotransferase 17 U/L (0-31); Albumin Level 4.2 g/dL (3.5-5.0); Alkaline Phosphatase 56 U/L (39-117); Anion Gap 14 (12-20); Aspartate Amino Transferase 20 U/L (5-31); Bilirubin Total 0.5 mg/dL (0.0-1.0); Blood Urea Nitrogen 12 mg/dL (9-16); Calcium 9.1 mg/dL (8.4-10.2); Carbon Dioxide 21 mmol/L (22-29); Chloride 109 mmol/L (96-108); Creatinine Clr Calc Pharmacy 90.7; Estimated Glomerular Filt Rate > 60; Glucose Random 117 mg/dL (60-115); Potassium 3.3 mmol/L (3.3-5.1); Sodium 141 mmol/L (135-145); Total Protein 6.5 g/dL (6.5-8.0)
[2021-07-24] MEDS: diphenhydrAMINE HCL 50 MG/ML VIAL 25 MG IVPUSH (07:33)
[2021-07-24] MEDS: Haloperidol Lactate 5 MG/ML VIAL IVPUSH (07:34)
[2021-07-24] MEDS: LORazepam 2 MG/ML VIAL 1 MG IVPUSH (07:34)
[2021-07-24 07:51] VITALS: BP 158/87; PULSE 72; RESP 15; O2SAT 97
--- NOTE | 2021-07-24 08:03 | PC.NURSE ---
currently pt resting quietly, reports relief after meds. vss. no complaints at this time. fluids infusing without difficulty, pt tolerating well. will continue to monitor.
[2021-07-24 10:02] VITALS: BP 148/85; PULSE 76; RESP 19
--- NOTE | 2021-07-24 10:05 | PC.NURSE ---
pt sleeping, vss. fluids infused without difficulty, pt tolerated well. will continue to monitor.
[2021-07-24 10:13] VITALS: BP 160/76; PULSE 74; RESP 17
[2021-07-24 11:35] LABS: CDiff Gene PCR NEGATIVE (Negative)
[2021-07-24] MEDS: methylPREDNISolone Sod Succ 125 MG/2 ML VIAL IVPUSH (12:02)
[2021-07-24 12:04] VITALS: BP 159/73; PULSE 78; RESP 12; O2SAT 98
--- NOTE | 2021-07-24 12:13 | PC.NURSE ---
pt medically cleared for discharge. meds given as documented, discharge summary given and explained, pt verbalized understanding. pt alert and oriented, vss. pt discharged with her mother.
[2021-07-24 13:04] LABS: C Reactive Protein 0.29 mg/dL (< or = 0.50)
[2021-07-24 14:24] LABS: Erythrocyte Sedimentation Rate 7 MM/HR (0-20)
== END 2021-07-24 12:16 | disposition home or self-care (01) ==
PROVIDERS: Emergency Provider Emergency Medicine; PCP Internal Medicine
DX: K52.9 Noninfective gastroenteritis and colitis, unspecified (principal); K58.0 Irritable bowel syndrome with diarrhea; R10.9 Unspecified abdominal pain
CPT/HCPCS: 36415; 80053; 85025; 85652; 86140; 87045; 87046; 87493; 96361; 96374; 96375; 99285; J1200; J2060; J2550; J2930

== ENCOUNTER 2021-07-25 04:16 | Emergency (ER) | payer OTHER, SELFPAY ==
[2021-07-25 04:29] VITALS: BP 162/96; PULSE 97; O2SAT 97
[2021-07-25 04:30] VITALS: BP 165/94; PULSE 70; RESP 20; TEMP 36.3; O2SAT 99; BMI 30.4
--- NOTE | 2021-07-25 04:33 | ED.ABDPAIN ---
HPI - Abdominal Pain General Chief Complaint: Abdominal Pain Stated Complaint: abd pain Time Seen by Provider: 07/25/21 04:32 Source: patient Mode of arrival: EMS Limitations: no limitations History of Present Illness HPI narrative: patient's history of PTSD anxiety bipolar disorder on multiple medications been here 4 times for abdominal pain which is going on for last 1 week patient had [address] scans multiple labs were done which were stable patient does have ribbon shaped lose stools with diffuse cramping unable to eat much vomited 2 times today on multiple medication which she unable to take also comes here for as she is not getting better. No fever no chills patient was started on Flagyl for possible colitis patient never had colonoscopy or endoscopy in the past and has never seen a leather novelty parts cutter patient on prednisone , Cipro and Flagyl Related Data Home Medications Medication Instructions Recorded Confirmed gabapentin 600 mg tablet 600 mg PO TID 02/26/21 Previous Rx's Medication Instructions Recorded fluconazole 150 mg tablet 150 mg PO Q3D 1 Days #1 tab 02/26/21 (Diflucan) albuterol sulfate 90 mcg/actuation 2 puff INHALATION Q6H PRN 30 Days 04/14/21 aerosol inhaler #8.5 g cetirizine 10 mg capsule (Zyrtec) 10 mg PO DAILY PRN 30 Days #30 cap 06/16/21 fluticasone 232 mcg-salmeterol 14 1 inh INHALATION BID #1 ea 06/25/21 mcg/actuation breath activated powdr naproxen 500 mg tablet 500 mg PO BID PRN 10 Days #20 tab 07/20/21 ondansetron HCl 4 mg tablet 4 mg PO Q6H PRN 4 Days #12 tab 07/20/21 (Zofran) oxycodone-acetaminophen 5 mg-325 1 tab PO TID PRN #9 tab 07/20/21 mg tablet (Percocet) ciprofloxacin HCl 500 mg tablet 500 mg PO BID #20 tab 07/22/21 (Cipro) ketorolac 10 mg tablet 10 mg PO Q8H #15 tab 07/22/21 metronidazole 500 mg tablet 500 mg PO TID #30 tab 07/22/21 prednisone 20 mg tablet 60 mg PO DAILY #12 tab 07/24/21 dicyclomine 20 mg tablet 20 mg PO QID PRN #20 tab 07/25/21 lorazepam 1 mg tablet (Ativan) 1 mg PO TID PRN #20 tab 07/25/21 ondansetron 4 mg disintegrating 4 mg PO Q6-8H PRN #15 tab 07/25/21 tablet Allergies Allergy/AdvReac Type Severity Reaction Status Date / Time divalproex sodium [Depakote] Allergy Unknown Verified 03/05/20 00:00 Review of Systems Review of Systems Yes all other systems are reviewed and are negative Physical Exam Vital Signs: Vital Signs: Last Vital Signs Temp 97.4 F 07/25/21 04:30 Pulse 70 07/25/21 04:30 Resp 20 07/25/21 04:30 BP 165/94 H 07/25/21 04:30 Pulse Ox 99 07/25/21 04:30 Body Mass Index 30.4 Appearance: Alert. Oriented X3. very anxious Eyes: PERRLA, No Nystagmus ENT: Pharynx normal. Oral Mucosa moist Neck: Normal inspection. Neck supple. CVS: Normal heart rate and rhythm. Pulses normal. Respiratory: No respiratory distress. Equal air entry bilateral, no wheezing/rales/rhonchi Abdomen: Soft : Diffuse abdominal tenderness , no guarding or rebound tenderness Bowel sounds are present, no mass palpable, no CVA tenderness Skin: Skin warm and dry. Normal skin color. Normal skin turgor. Extremities: No lower extremity edema. No calf tenderness Neuro: Oriented X 3. No motor deficit. Course Reevaluation(s) Reevaluation #1: patient feeling much better after Ativan likely patient has IBS with anxiety unable to take her medications also patient was placed on Cipro Flagyl and prednisone which may be making her condition worse because of gastritis. Patient's stool is negative for C diff at this time we will like to stop her prednisone Cipro and Flagyl and discharged her home on Ativan and Zofran and Bentyl advised to follow with leather novelty parts cutter if not better come back to ER for IV hydration Time: 06:48 MDM - Abdominal Pain MDM Narrative Medical decision making narrative: patient's symptoms likely from anxiety and IBS will give her Ativan IV fluids and Compazine and watch for some time Medical Records Attestation: I reviewed the patient's medical records. Lab Data Attestation: I reviewed the patient's lab results. Result diagrams: 07/25/21 04:51 07/25/21 04:51 Labs: Lab Results 07/25/21 07/25/21 Range/Units 04:51 04:51 WBC 16.2 H (4.8-10.8) X10*3/uL RBC 3.52 L (4.20-5.50) X10*6/uL Hgb 11.1 L (12.0-16.0) g/dl Hct 32.7 L (37.0-47.0) % MCV 92.9 (80.0-98.0) fL MCH 31.5 (27.0-33.0) pg MCHC 33.9 (31.0-35.0) g/dl RDW 12.6 (11.0-16.0) % Plt Count 277 (160-400) X10*3/uL MPV 11.0 (9.4-12.3) fL Immature Gran % (Auto) 0.4 (0.0-0.4) % Neut % (Auto) 83.4 H (45-73) % Lymph % (Auto) 9.8 L (20-40) % [place] % (Auto) 6.2 (2-11) % Eos % (Auto) 0.1 (0-4) % Baso % (Auto) 0.1 (0-2) % Lymph # (Auto) 1.6 (1.2-4.9) X10*3/uL [place] # (Auto) 1.0 (0.1-1.2) X10*3/uL Eos # (Auto) 0.0 (0.0-0.4) X10*3/uL Baso # (Auto) 0.0 (0.0-0.2) X10*3/uL Abs Immat Gran (auto) 0.06 H (0.00-0.03) X10*3/uL Absolute Neuts (auto) 13.5 H (2.0-8.3) x10*3/uL Absolute Nucleated RBC 0.000 (0.0-0.012) X10*3/uL Nucleated RBC % (auto) 0.0 (0.0-0.2) /100WBC Sodium 139 (135-145) mmol/L Potassium 3.5 (3.3-5.1) mmol/L Chloride 109 H (96-108) mmol/L Carbon Dioxide 18 L (22-29) mmol/L Anion Gap 16 (12-20) BUN 9 (9-16) mg/dL Creatinine 0.86 (0.5-1.4) mg/dL Estim Creat Clear Calc 98.3 Estimated GFR > 60 Random Glucose 119 H (60-115) mg/dL Calcium 9.1 (8.4-10.2) mg/dL Total Bilirubin 0.4 (0.0-1.0) mg/dL AST 33 H D (5-31) U/L ALT 27 (0-31) U/L Alkaline Phosphatase 59 (39-117) U/L Total Protein 6.5 (6.5-8.0) g/dL Albumin 4.1 (3.5-5.0) g/dL Discharge Plan Discharge Clinical Impression: Anxiety Irritable bowel syndrome Qualifiers: Irritable bowel syndrome type: with diarrhea Qualified Code(s): K58.0 - Irritable bowel syndrome with diarrhea Patient Disposition: Home, Self-Care Instructions: Irritable Bowel Syndrome (ED), Anxiety (ED) Additional Instructions: stop ciprofloxacin, stop Flagyl, stop prednisone drink plenty of fluids take Ativan, Bentyl, Zofran sublingual as prescribed follow-up with leather [employer] parts cutter, or report to ER if not better Prescriptions: New lorazepam [Ativan] 1 mg tablet 1 mg PO TID PRN (Reason: anxiety) Qty: 20 RF: 0 dicyclomine 20 mg tablet 20 mg PO QID PRN (Reason: abdominal pain) Qty: 20 RF: 0 ondansetron 4 mg tablet,disintegrating 4 mg PO Q6-8H PRN (Reason: nausea and vomiting) Qty: 15 RF: 0 No Action albuterol sulfate 90 mcg/actuation HFA aerosol inhaler 2 puff inhalation Q6H PRN (Reason: bronchospasm) 30 Days Qty: 8.5 RF: 0 Zyrtec 10 mg capsule 10 mg PO DAILY PRN (Reason: allergy symptoms) 30 Days Qty: 30 RF: 0 fluticasone propion-salmeterol 232-14 mcg/actuation aerosol powdr breath activated 1 inh inhalation BID Qty: 1 RF: 0 ciprofloxacin HCl [Cipro] 500 mg tablet 500 mg PO BID Qty: 20 RF: 0 metronidazole 500 mg tablet 500 mg PO TID Qty: 30 RF: 0 ketorolac 10 mg tablet 10 mg PO Q8H Qty: 15 RF: 0 prednisone 20 mg tablet 60 mg PO DAILY Qty: 12 RF: 0 naproxen 500 mg tablet 500 mg PO BID PRN (Reason: pain) 10 Days Qty: 20 RF: 0 ondansetron HCl [Zofran] 4 mg tablet 4 mg PO Q6H PRN (Reason: pain) 4 Days Qty: 12 RF: 0 oxycodone-acetaminophen [Percocet] 5-325 mg tablet 1 tab PO TID PRN (Reason: pain) Qty: 9 RF: 0 gabapentin 600 mg tablet 600 mg PO TID RF: 0 fluconazole [Diflucan] 150 mg tablet 150 mg PO Q3D 1 Days Qty: 1 RF: 0 Referrals: Luis Antonio Chadwick MD [Physician] - 1 week [facility] Family History Family History Other Mental health disorder Social History Social History Housing: Apartment Alcohol intake: unknown Patient Tobacco Use Status: Former Tobacco user Use of substances other than those prescribed or required for medical reasons: Yes Substance Use Type: Marijuana Advance Directives: No Advance Directives Information Provided: Yes Patient : Yes Current occupational status: unemployed
[2021-07-25] MEDS: LORazepam 2 MG/ML VIAL IVPUSH (04:53)
[2021-07-25] MEDS: Prochlorperazine Edisylate 10 MG/2 ML VIAL IVPUSH (04:53)
[2021-07-25] MEDS: 0.9 % Sodium Chloride 1,000 ML 999 ML IVCONT (04:54)
[2021-07-25 04:57] LABS: MANUAL DIFF FLAG NO
[2021-07-25 04:59] LABS: Basophils Percent Auto 0.1 % (0-2); Eosinophils Percent Auto 0.1 % (0-4); Hematocrit 32.7 % (37.0-47.0); Hemoglobin 11.1 g/dl (12.0-16.0); Imm Gran Abs Auto 0.06 X10*3/uL (0.00-0.03); Imm Gran Pct Auto 0.4 % (0.0-0.4); Lymphocytes Absolute Auto 1.6 X10*3/uL (1.2-4.9); Lymphocytes Percent Auto 9.8 % (20-40); Mean Corpuscular HGB Conc 33.9 g/dl (31.0-35.0); Mean Corpuscular Hemoglobin 31.5 pg (27.0-33.0); Mean Corpuscular Volume 92.9 fL (80.0-98.0); Monocytes Percent Auto 6.2 % (2-11); Neutrophils Absolute Auto 13.5 x10*3/uL (2.0-8.3); Neutrophils Percent Auto 83.4 % (45-73); Platelet Count 277 X10*3/uL (160-400); Red Blood Count 3.52 X10*6/uL (4.20-5.50); Red Cell Distribution Width 12.6 % (11.0-16.0); White Blood Count 16.2 X10*3/uL (4.8-10.8)
[2021-07-25 05:33] LABS: Alanine Aminotransferase 27 U/L (0-31); Albumin Level 4.1 g/dL (3.5-5.0); Alkaline Phosphatase 59 U/L (39-117); Anion Gap 16 (12-20); Aspartate Amino Transferase 33 U/L (5-31); Bilirubin Total 0.4 mg/dL (0.0-1.0); Blood Urea Nitrogen 9 mg/dL (9-16); Calcium 9.1 mg/dL (8.4-10.2); Carbon Dioxide 18 mmol/L (22-29); Chloride 109 mmol/L (96-108); Creatinine Clr Calc Pharmacy 98.3; Estimated Glomerular Filt Rate > 60; Glucose Random 119 mg/dL (60-115); Potassium 3.5 mmol/L (3.3-5.1); Sodium 139 mmol/L (135-145); Total Protein 6.5 g/dL (6.5-8.0)
[2021-07-25] MEDS: LORazepam 2 MG/ML VIAL 1 MG IVPUSH (06:00)
[2021-07-25] MEDS: Dicyclomine HCl 10 MG CAPSULE 20 MG PO (06:01)
[2021-07-25] MEDS: diphenhydrAMINE HCL 50 MG/ML VIAL 25 MG IVPUSH (06:01)
== END 2021-07-25 07:09 | disposition home or self-care (01) ==
PROVIDERS: Emergency Provider Internal Medicine
DX: K58.0 Irritable bowel syndrome with diarrhea (principal); F41.9 Anxiety disorder, unspecified; R10.9 Unspecified abdominal pain
CPT/HCPCS: 36415; 80053; 85025; 96361; 96374; 96375; 96376; 99284; J1200; J2060

== ENCOUNTER 2021-08-06 13:53 | Outpatient (REF) | payer OTHER, SELFPAY ==
[2021-08-06 16:06] LABS: Lipase 69 U/L (8-78)
[2021-08-06 16:28] LABS: TSH reflex Free T4 0.55 uIU/mL (0.32-4.0)
[2021-08-06 16:45] LABS: Folate 14.9 ng/mL (> or = 4.0); Vitamin B12 815 pg/mL (200-900)
[2021-08-10 15:06] LABS: Vitamin D 25-OH, D2 <4 ng/mL; Vitamin D 25-OH, D3 34 ng/mL; Vitamin D 25-OH, Total 34 ng/mL (30-100)
[2021-08-11 13:36] LABS: Transglutaminase Ab IgG <1.0 U/mL; Transglutaminase IgA <1.0 U/mL
[2022-02-05 09:14] LABS: Prometheus IBD SGI SEE SEPARATE REPORT
== END 2021-08-06 13:54 | disposition home or self-care (01) ==
LOC: HO.LAB 13:53
PROVIDERS: PCP Internal Medicine; Referring Provider Internal Medicine; Visit Provider Nurse Practitioner Family
DX: K58.2 Mixed irritable bowel syndrome (principal); K21.9 Gastro-esophageal reflux disease without esophagitis; R11.2 Nausea with vomiting, unspecified; E55.9 Vitamin D deficiency, unspecified; R10.11 Right upper quadrant pain; Z87.891 Personal history of nicotine dependence; Z12.11 Encounter for screening for malignant neoplasm of colon
CPT/HCPCS: 36415; 81479; 82306; 82397; 82607; 82746; 83516; 83520; 83690; 84443; 86140; 88346; 88350; 99202

== ENCOUNTER 2023-09-07 10:14 | Outpatient (AMB) | payer OTHER, SELFPAY ==
[2023-09-07 10:32] VITALS: BP 128/78; PULSE 75; O2SAT 96; BMI 29.4
--- NOTE | 2023-09-07 10:32 | A.OFFPC_ITS ---
Vital Signs 09/07/23 10:32 Height 5 ft 7 in Weight 188 lb BMI 29.4 BP 128/78 Blood Pressure Location Lt brachial Position Sitting Pulse 75 Pulse Source Pulse Oximeter Pulse Oximetry (%) 96 Oxygen Delivery Method Room Air Intake Visit Reasons: Annual PE Allergies divalproex sodium [Depakote] Allergy (Intermediate, Verified 09/07/23 10:32) anger Medication List - Last Reconciled 09/07/23 by Shonda Caldwell MD albuterol sulfate 90 mcg/actuation 2 puffs inhalation Q6H PRN 30 days albuterol sulfate 90 mcg/actuation (ProAir RespiClick) 2 inhalations inhalation Q4-6H PRN gabapentin 600 mg PO TID lamotrigine 100 mg PO DAILY Tobacco use date assessed: 09/07/23 Dental Screening Dental Screen Date: 09/07/23 Did you have a dental visit in the last 12 months?: Yes Did you have a dental problem in the last 6 months where you did not have access to dental care?: No Was dental information given to patient?: Patient has dentist HPI Annual PE HPI Details Patient is a 48-year-old female came in today for physical examination Due for mammogram Due for colonoscopy Pap smear [facility] His my stable using albuterol 2 times a month Continued to smoke cigarettes 3 packs per week, counseling provided , help offered Patient is complaining of feeling in voluntary movement her leg right side when she is driving which has been happening for a while but now it is causing more problem I have placed a referral for to be evaluated by Neurology meanwhile I am sending small dose of cyclobenzaprine to see if that might help. Patient have a family history of coronary artery disease. The EKG today which was within normal limit [facility] Family History Other Mental health disorder Social History Housing: Apartment Alcohol intake: unknown Patient Tobacco Use Status: Current everyday Tobacco user e-Cigarette/Vaping Use: Never Used Substance Use Type: Marijuana Current occupational status: unemployed Cognitive needs: No Hearing needs: No Vision needs: Yes Questionnaire PHQ-9 Over the last 2 weeks, how often have you been bothered by any of the following problems? 1. Little interest or pleasure in doing things: several days 2. Feeling down, depressed, or hopeless: not at all 3. Trouble falling or staying asleep, or sleeping too much: nearly every day 4. Feeling tired or having little energy: several days 5. Poor appetite or overeating: nearly every day 6. Feeling bad about yourself - or that you are a failure or have let yourself or your family down: not at all 7. Trouble concentrating on things, such as reading the newspaper or watching television: nearly every day 8. Moving or speaking so slowly that other people could have noticed. Or the opposite - being so fidgety or restless that you have been moving around a lot m ore than usual: not at all 9. Thoughts that you would be better off or of hurting yourself in some way: not at all Total score: 11 Depression Screening Interpretation: Negative Depression Screening Done: Yes 58240 - PHQ-9 Billing: Yes Source: Developed by Drs. Ulises Thakur, Lia Banerjee, Sulaiman Berg and colleagues, with an educational javon from [employer]. Thrive Questionnaire Date Thrive assessed: 09/07/23 I am a: Patient What is your living situation today?: I have a steady place to live Within the past 12 months, did the food you bought not last and you didn't have the money to get more?: Never true Within the past 12 months, did you worry whether your food would run out before you got money to buy more?: Never true Do you have trouble paying for medicines?: No Do you have trouble getting transportation to medical appointments?: No Do you have trouble paying your heating and electricity bill?: No Do you have trouble taking care of your child, family member or friend?: No Do you have trouble with day-to-day activities such as bathing, preparing meals, shopping, managing finances, etc.?: No Are you currently unemployed and looking for a job?: No Are you interested in more education?: Yes Please select the resources that you would like help with: None Currently or been in a relationship where the following occur: no concerns reported AUDIT C Alcohol Use Questionnaire (AUDIT-C) 1. How often do you have a drink containing alcohol?: Never 3. How often do you have six or more drinks on one occasion?: Never Total Score: 0 Score Reviewed/Action Taken: Yes ADDIE-7 AMB Questionnaire ADDIE-7 Date ADDIE - 7 assessed: 09/07/23 Feeling nervous, anxious, or on edge: 3 = Nearly every day Not being able to stop or control worryin = Nearly every day Worrying too much about different things: 3 = Nearly every day Trouble relaxin = Nearly every day Being so restless that it is hard to sit still: 0 = Not at all Becoming easily annoyed or irritable: 1 = Several days Feeling afraid as if something awful might happen: 0 = Not at all Total ADDIE-7 score (0-4 normal; 5-9 mild; 10-14 moderate; 15-21 severe): 13 Source: Developed by Drs. Ulises Thakur, Lia Banerjee, Sulaiman Berg and colleagues, with an educational javon from [employer]. ADDIE-7 Assessment Billing ADDIE-7 Assessment Tool: ADDIE-7 Assessment 01667 Review of Systems Const Denies chills, Denies fever(s) and Denies headache(s) Eyes Denies blurry vision ENT Denies headache(s), Denies nasal discharge, Denies nasal obstruction, Denies odynophagia and Denies sinus pain Card Denies chest pain at rest and Denies chest pain with activity Resp Denies cough and Denies hemoptysis GI Denies diarrhea, Denies odynophagia, Denies vomiting and Denies hematemesis Reports as per HPI Musc Denies abnormal gait Skin/Breast Reports as per HPI Neuro Denies Neuro-related abnormal movements, Denies Abnormal speech present, Denies abnormal gait, Denies headache(s) and Denies Sensory deficit (Neuro) Psych Denies mood swings and Denies paranoia Endo Reports as per HPI Darryl/Lymph Reports as per HPI Aller/Immun Reports as per HPI Physical exam (Primary Care) Vital Signs: Last Vital Signs Pulse 75 09/07/23 10:32 BP 128/78 09/07/23 10:32 Pulse Ox 96 09/07/23 10:32 Oxygen Delivery Method Room Air 09/07/23 10:32 BMI result Body Mass Index 29.4 Tobacco/Smoking Status: Tobacco use Status Tobacco use date assessed 09/07/23 09/07/23 10:36 Patient Tobacco Use Status Current everyday Tobacco 09/07/23 10:36 e-Cigarette/Vaping Use Never Used 09/07/23 10:36 Are you ready to quit: No Tobacco cessation counseling provided: Yes Items discussed: Nicotine replacement CPT code: 55247 - 4-10 Minutes PHQ-9: PHQ-9 Score PHQ-9: Total score 11 09/07/23 11:18 Depression Screening Interpretation: Negative Thrive Assessment: Date of Thrive Assessment Date Thrive assessed 09/07/23 09/07/23 10:36 Currently or been in a relationship where the following occur: no concerns reported Const General: cooperative, comfortable and no acute distress Orientation/consciousness: patient oriented x3 HENMT Head: Yes normocephalic and Yes atraumatic Eyes General: appearance normal, both eyes and all related structures Pupils: Equal, round and reactive pupils present EOM: EOMs intact bilaterally Neck Neck: Yes supple and No lymphadenopathy Thyroid: Thyroid normal Lymphatic: no lymphadenopathy noted Chest Breast/axilla palpation: normal palpation of the breasts Resp Effort & Inspection: normal respiratory effort and able to speak in complete sentences Auscultation: clear to auscultation bilaterally Cardio Heart sounds: S1 normal heart sound present and S2 normal heart sound present GI Palpation (GI): Soft to palpation and nontender Auscultation: normal bowel sounds General: Yes no CVA tenderness Back/Spine/Pelvis Back: no CVA tenderness Skin General skin exam: elasticity normal and turgor normal Neuro General: patient oriented x3 and gait normal Cranial nerves: Yes Equal, round and reactive pupils present Speech: No Abnormal speech present Sensory Exam: No Sensory deficit (Neuro) Coordination: tandem gait normal and Romberg test negative Extrem General: Yes normal exam except as noted and No edema Office Procedures EKG [id number], Complete Assessment and Plan Assessment & Plan (1) Encounter for general adult medical examination with abnormal findings: Code(s): Z00.01 - Encounter for general adult medical examination with abnormal findings (2) Muscle fasciculation: Code(s): R25.3 - Fasciculation (3) Bipolar disorder: Code(s): F31.9 - Bipolar disorder, unspecified Qualifiers: Active/Remission status: in full remission Most recent bipolar episode type: unspecified type Qualified Code(s): F31.70 - Bipolar disorder, currently in remission, most recent episode unspecified (4) Environmental allergies: Code(s): Z91.09 - Other allergy status, other than to drugs and biological substances (5) Irritable bowel syndrome: Code(s): K58.9 - Irritable bowel syndrome without diarrhea Qualifiers: Irritable bowel syndrome type: with both diarrhea and constipation Qualified Code(s): K58.2 - Mixed irritable bowel syndrome (6) Family history of coronary artery disease in father: Code(s): Z82.49 - Family history of ischemic heart disease and other diseases of the circulatory system (7) Colon cancer screening: Code(s): Z12.11 - Encounter for screening for malignant neoplasm of colon (8) Asthma, mild intermittent: Code(s): J45.20 - Mild intermittent asthma, uncomplicated Qualifiers: Asthma complication type: uncomplicated Qualified Code(s): J45.20 - Mild intermittent asthma, uncomplicated (9) Nicotine dependence: Code(s): F17.200 - Nicotine dependence, unspecified, uncomplicated Qualifiers: Nicotine product type: cigarettes Substance use status: uncomplicated Qualified Code(s): F17.210 - Nicotine dependence, cigarettes, uncomplicated Plan Patient is a 48-year-old female came in today for physical examination Due for mammogram Due for colonoscopy Pap smear [facility] His my stable using albuterol 2 times a month Continued to smoke cigarettes 3 packs per week, counseling provided , help offered Patient is complaining of feeling in voluntary movement her leg right side when she is driving which has been happening for a while but now it is causing more problem I have placed a referral for to be evaluated by Neurology meanwhile I am sending small dose of cyclobenzaprine to see if that might help. Patient have a family history of coronary artery disease. The EKG today which was within normal limit Orders: Orders Complete Blood Count Auto Diff Today F31.9 - Bipolar disorder, unspecified, J45.40 - Moderate persistent asthma, uncomplicated, K58.9 - Irritable bowel syndrome without diarrhea, Z00.01 - Encounter for general adult medical examination with abnormal findings, Z91.09 - Other allergy status, other than to drugs and biological substances Comprehensive [place]. Panel Fast Today F31.9 - Bipolar disorder, unspecified, J45.40 - Moderate persistent asthma, uncomplicated, K58.9 - Irritable bowel syndrome without diarrhea, Z00.01 - Encounter for general adult medical examination with abnormal findings, Z91.09 - Other allergy status, other than to drugs and biological substances Lipid Panel Today F31.9 - Bipolar disorder, unspecified, J45.40 - Moderate persistent asthma, uncomplicated, K58.9 - Irritable bowel syndrome without diarrhea, Z00.01 - Encounter for general adult medical examination with abnormal findings, Z91.09 - Other allergy status, other than to drugs and biological substances MM tomosynthesis screening BI Today Z12.31 - Encounter for screening mammogram for malignant neoplasm of breast AMB EKG-In Office Today Z82.49 - Family history of ischemic heart disease and other diseases of the circulatory system Referrals Neurology Referral R25.3 - Fasciculation Gastroenterology Referral Z12.11 - Encounter for screening for malignant neoplasm of colon Medications: New cyclobenzaprine 5 mg PO ONCE PRN 10 tabs 0RF muscle twitching 10 days Coding Level of Care Code Est Pt Prev Care 40-64y(88369) Diagnoses Encounter for general adult medical examination with abnormal findings Z00.01 Muscle fasciculation R25.3 Bipolar disorder in full remission, most recent episode unspecified type F31.70 Active/Remission status: in full remission Most recent bipolar episode type: unspecified type Environmental allergies Z91.09 Irritable bowel syndrome with both constipation and diarrhea K58.2 Irritable bowel syndrome type: with both diarrhea and constipation Family history of coronary artery disease in father Z82.49 Colon cancer screening Z12.11 Mild intermittent asthma without complication J45.20 Asthma complication type: uncomplicated Cigarette nicotine dependence without complication F17.210 Nicotine product type: cigarettes Substance use status: uncomplicated CPT Codes EKG - CPT: 22414-[id number], Complete ([id number]) Additional Codes ADDIE-7 Assessment Billing - ADDIE-7 Assessment Tool: ADDIE-7 Assessment 82195 ([id number]) Vital Signs *Quality* - CPT code: 57562 - 4-10 Minutes ([id number])
== END 2023-09-07 12:50 | disposition home or self-care (01) ==
PROVIDERS: Visit Provider Internal Medicine
DX: Z00.00 Encounter for general adult medical examination without abnormal findings (principal); F31.70 Bipolar disorder, currently in remission, most recent episode unspecified; R25.3 Fasciculation; Z82.49 Family history of ischemic heart disease and other diseases of the circulatory system; Z91.09 Other allergy status, other than to drugs and biological substances; K58.2 Mixed irritable bowel syndrome; J45.20 Mild intermittent asthma, uncomplicated; F17.210 Nicotine dependence, cigarettes, uncomplicated
CPT/HCPCS: 93000; 99396

== ENCOUNTER 2023-09-07 11:06 | Outpatient (REF) | payer OTHER, SELFPAY ==
[2023-09-07 12:55] LABS: MANUAL DIFF FLAG NO
[2023-09-07 13:10] LABS: Basophils Absolute Auto 0.1 X10*3/uL (0.0-0.2); Basophils Percent Auto 0.7 % (0-2); Eosinophils Absolute Auto 0.1 X10*3/uL (0.0-0.4); Eosinophils Percent Auto 1.4 % (0-4); Hematocrit 39.6 % (37.0-47.0); Hemoglobin 12.6 g/dl (12.0-16.0); Imm Gran Abs Auto 0.03 X10*3/uL (0.00-0.03); Imm Gran Pct Auto 0.4 % (0.0-0.4); Lymphocytes Absolute Auto 2.2 X10*3/uL (1.2-4.9); Mean Corpuscular HGB Conc 31.8 g/dl (31.0-35.0); Mean Corpuscular Hemoglobin 30.8 pg (27.0-33.0); Mean Corpuscular Volume 96.8 fL (80.0-98.0); Monocytes Absolute Auto 0.6 X10*3/uL (0.1-1.2); Monocytes Percent Auto 7.5 % (2-11); Neutrophils Absolute Auto 5.3 x10*3/uL (2.0-8.3); Platelet Count 316 X10*3/uL (160-400); Red Blood Count 4.09 X10*6/uL (4.20-5.50); Red Cell Distribution Width 13.2 % (11.0-16.0); White Blood Count 8.3 X10*3/uL (4.8-10.8)
[2023-09-07 13:34] LABS: Alanine Aminotransferase 28 U/L (0-31); Albumin Level 4.3 g/dL (3.5-5.0); Alkaline Phosphatase 66 U/L (39-117); Anion Gap 11 (12-20); Aspartate Amino Transferase 22 U/L (5-31); Bilirubin Total 0.3 mg/dL (0.0-1.0); Blood Urea Nitrogen 24 mg/dL (9-16); Calcium 9.5 mg/dL (8.4-10.2); Carbon Dioxide 25 mmol/L (22-29); Chloride 109 mmol/L (96-108); Cholesterol 270 mg/dL (<200); Estimated Glomerular Filt Rate > 60; Glucose Fasting 88 mg/dL (60-99); HDL Cholesterol 64 mg/dL (>40); LDL Cholesterol Calculated 185 mg/dL (<100); Potassium 4.6 mmol/L (3.3-5.1); Sodium 140 mmol/L (135-145); Total Protein 7.1 g/dL (6.5-8.0); Triglycerides 108 mg/dL (<150)
== END 2023-09-07 11:07 | disposition home or self-care (01) ==
LOC: HO.HMGCLDS 11:06
PROVIDERS: PCP Internal Medicine; Visit Provider Internal Medicine
DX: Z00.01 Encounter for general adult medical examination with abnormal findings (principal); J45.40 Moderate persistent asthma, uncomplicated; F31.9 Bipolar disorder, unspecified; K58.9 Irritable bowel syndrome, unspecified; Z91.09 Other allergy status, other than to drugs and biological substances
CPT/HCPCS: 36415; 80053; 80061; 85025

== ENCOUNTER 2023-11-12 09:01 | Outpatient (REF) | payer OTHER, SELFPAY ==
--- NOTE | ~2023-11-12 | MM_ITS ---
EXAMINATION: MM SCREENING DIGITAL BREAST TOMOSYNTHESIS, BILATERAL CLINICAL INFORMATION: Screening. Asymptomatic. COMPARISON: Mammography: This study is compared with prior exams dating back to 2019. TECHNIQUE: Digital breast tomosynthesis is performed in both the craniocaudal and mediolateral oblique views along with computer-aided detection (CAD). Synthesized 2D images are generated from the tomosynthesis. FINDINGS: The breasts are heterogeneously dense, which may obscure small masses (ACR BI-RADS breast composition Category c). There are no significant masses, abnormal calcifications, or other abnormalities. Bilateral, benign, left greater than right well-circumscribed masses are present consistent with cysts. MM/MM tomosynthesis screening BI IMPRESSION: No mammographic evidence of malignancy. ASSESSMENT: BI-RADS BI-RADS 2 - Benign Findings RECOMMENDATION: Routine annual mammography screening. 1 year F/U This examination should not preclude the clinical evaluation of a suspicious palpable abnormality. This patient's information was entered into a reminder system with a target due date for their next mammogram.
== END 2023-11-12 09:02 | disposition home or self-care (01) ==
LOC: HO.MAMMO 09:01
PROVIDERS: PCP Internal Medicine; Visit Provider Internal Medicine
DX: Z12.31 Encounter for screening mammogram for malignant neoplasm of breast (principal)
CPT/HCPCS: 77063; 77067

== ENCOUNTER → 2023-11-12 09:15 | Outpatient (BNV) | payer OTHER, SELFPAY | PROVIDERS: PCP Internal Medicine; Visit Provider Radiology Diagnostic Radiology | DX: Z12.31 Encounter for screening mammogram for malignant neoplasm of breast (principal) | CPT/HCPCS: 77063; 77067 ==

== ENCOUNTER 2023-11-12 09:35 | Outpatient (REF) | payer OTHER, SELFPAY ==
[2023-11-12 11:19] LABS: Alanine Aminotransferase 26 U/L (0-31); Albumin Level 4.4 g/dL (3.5-5.0); Alkaline Phosphatase 75 U/L (39-117); Aspartate Amino Transferase 18 U/L (5-31); Bilirubin Direct < 0.2 mg/dL (0.0-0.5); Bilirubin Total 0.2 mg/dL (0.0-1.0); Cholesterol 199 mg/dL (<200); HDL Cholesterol 59 mg/dL (>40); LDL Cholesterol Calculated 124 mg/dL (<100); Total Protein 7.2 g/dL (6.5-8.0); Triglycerides 80 mg/dL (<150)
== END 2023-11-12 09:36 | disposition home or self-care (01) ==
LOC: HO.HMGCLDS 09:35
PROVIDERS: PCP Internal Medicine; Visit Provider Internal Medicine
DX: E78.5 Hyperlipidemia, unspecified (principal)
CPT/HCPCS: 36415; 80061; 80076

== ENCOUNTER 2023-11-18 08:42 | Outpatient (AMB) | payer OTHER, SELFPAY ==
--- NOTE | 2023-11-18 10:10 | A.OFFPC_ITS ---
Intake Visit Reasons: Discuss Labs~ Allergies divalproex sodium [Depakote] Allergy (Intermediate, Verified 09/07/23 10:32) anger Medication List - Last Reconciled 11/18/23 by Shonda Caldwell MD albuterol sulfate 90 mcg/actuation 2 puffs inhalation Q6H PRN 30 days albuterol sulfate 90 mcg/actuation (ProAir RespiClick) 2 inhalations inhalation Q4-6H PRN cyclobenzaprine 5 mg PO ONCE PRN 10 days gabapentin 600 mg PO TID lamotrigine 100 mg PO DAILY simvastatin 20 mg PO DAILY Tobacco use date assessed: 09/07/23 HPI Discuss Labs~ HPI Details Patient is a 48-year-old female this is a telemedicine visit She was started on simvastatin 20 mg as her lipids came back very high LDL was above 180 Recent labs shows LDL in 120s. Patient is tolerating medication she will continue that. Patient also have severe OCD currently she is seeing a psychiatrist and taking medications Patient says that her symptoms are not controlled and she has a habit of picking on her skin She have done some damage to her right buttock skin to point where it is oozing yellow liquid Patient says that it did get better until she scratched the scab again. Patient says that she will try to come in tomorrow morning or at least have a tele medicine visit when she is at home so I can take a look at the wound. Currently she is not at home and we are not able to do a video visit. There is no fever chills. PFSH Family History Other Mental health disorder Social History Housing: Apartment Alcohol intake: unknown Patient Tobacco Use Status: Current everyday Tobacco user e-Cigarette/Vaping Use: Never Used Substance Use Type: Marijuana Current occupational status: unemployed Cognitive needs: No Hearing needs: No Vision needs: Yes Questionnaire Thrive Questionnaire Date Thrive assessed: 09/07/23 ADDIE-7 AMB Questionnaire ADDIE-7 Date ADDIE - 7 assessed: 09/07/23 Source: Developed by Drs. Ulises Thakur, Lia Banerjee, Sulaiman Berg and colleagues, with an educational javon from [email or web address]. Review of Systems Const Denies chills and Denies fever(s) ENT Denies epistaxis and Denies nasal discharge Card Denies chest pain Resp Denies chest congestion, Denies cough and Denies hemoptysis GI Denies diarrhea and Denies nausea Skin/Breast Denies rash Neuro Reports no additional complaints Psych Reports no additional complaints Endo Reports no additional complaints Physical exam (Primary Care) Tobacco/Smoking Status: Tobacco use Status Tobacco use date assessed 09/07/23 11/18/23 10:10 Patient Tobacco Use Status Current everyday Tobacco 11/18/23 10:10 e-Cigarette/Vaping Use Never Used 11/18/23 10:10 Thrive Assessment: Date of Thrive Assessment Date Thrive assessed 09/07/23 11/18/23 10:10 Telehealth Telehealth Location of provider rendering services: practice address Location of patient: other (away from home) Patient Identification confirmed using: Name, : Yes Telehealth method: voice only Patient verbally consented to treatment: Yes Patient verbally consented to billing insurance company: Yes Patient informed of any privacy concerns related to visit: Yes Minutes spent on Phone/Video with Pt.: 16 Assessment and Plan Assessment & Plan (1) Lipid disorder: Code(s): E78.9 - Disorder of lipoprotein metabolism, unspecified (2) OCD (obsessive compulsive disorder): Code(s): F42.9 - Obsessive-compulsive disorder, unspecified Qualifiers: Obsessive-compulsive disorder type: mixed obsessional thoughts and acts Qualified Code(s): F42.2 - Mixed obsessional thoughts and acts (3) Buttock wound: Code(s): S31.809A - Unspecified open wound of unspecified buttock, initial encounter Qualifiers: Encounter type: initial encounter Laterality: right Qualified Code(s): S31.819A - Unspecified open wound of right buttock, initial encounter Plan Patient is a 48-year-old female this is a telemedicine visit She was started on simvastatin 20 mg as her lipids came back very high LDL was above 180 Recent labs shows LDL in 120s. Patient is tolerating medication she will continue that. Patient also have severe OCD currently she is seeing a psychiatrist and taking medications Patient says that her symptoms are not controlled and she has a habit of picking on her skin She have done some damage to her right buttock skin to point where it is oozing yellow liquid Patient says that it did get better until she scratched the scab again. Patient says that she will try to come in tomorrow morning or at least have a tele medicine visit when she is at home so I can take a look at the wound. Currently she is not at home and we are not able to do a video visit. There is no fever chills. Coding Level of Care Code Tele Est Pt Level 3 (19145) Diagnoses Lipid disorder E78.9 Mixed obsessional thoughts and acts F42.2 Obsessive-compulsive disorder type: mixed obsessional thoughts and acts Wound of right buttock, initial encounter S31.819A Encounter type: initial encounter Laterality: right
== END 2023-11-18 11:21 | disposition home or self-care (01) ==
LOC: HO.HMGC 08:42
PROVIDERS: PCP Internal Medicine; Visit Provider Internal Medicine
DX: E78.9 Disorder of lipoprotein metabolism, unspecified (principal); F42.2 Mixed obsessional thoughts and acts; S31.819A Unspecified open wound of right buttock, initial encounter
CPT/HCPCS: 99213

== ENCOUNTER 2023-11-19 07:34 | Outpatient (AMB) | payer OTHER, SELFPAY ==
--- NOTE | 2023-11-19 07:31 | MHC.PC.OV ---
Intake Visit Reasons: follow per Dr. Caldwell Allergies divalproex sodium [Depakote] Allergy (Intermediate, Verified 09/07/23 10:32) anger Medication List - Last Reconciled 11/19/23 by Shonda Caldwell MD albuterol sulfate 90 mcg/actuation 2 puffs inhalation Q6H PRN 30 days albuterol sulfate 90 mcg/actuation (ProAir RespiClick) 2 inhalations inhalation Q4-6H PRN cyclobenzaprine 5 mg PO ONCE PRN 10 days gabapentin 600 mg PO TID lamotrigine 100 mg PO DAILY simvastatin 20 mg PO DAILY Tobacco use date assessed: 09/07/[address] Caldwell HPI Details Patient is a 48-year-old female this is a telemedicine video conference Patient have psychiatric illness of severe OCD, which present with picking on skin She has developed sore on her right buttock which is oozing slightly grayish yellow secretions I am prescribing doxycycline for the patient she is to take 1 b.i.d. for 7 days Patient is to get back to me if still have the sore after finishing antibiotic. Her OCD she will address with her psychiatrist [facility] Family History Other Mental health disorder Social History Housing: Apartment Alcohol intake: unknown Patient Tobacco Use Status: Current everyday Tobacco user e-Cigarette/Vaping Use: Never Used Substance Use Type: Marijuana Current occupational status: unemployed Cognitive needs: No Hearing needs: No Vision needs: Yes Questionnaire Thrive Questionnaire Date Thrive assessed: 09/07/23 ADDIE-7 AMB Questionnaire ADDIE-7 Date ADDIE - 7 assessed: 09/07/23 Source: Developed by Drs. Ulises Thakur, Lia Banerjee, Sulaiman Berg and colleagues, with an educational javon from [employer]. Review of Systems Const Denies chills and Denies fever(s) ENT Denies epistaxis and Denies nasal discharge Card Denies chest pain Resp Denies chest congestion, Denies cough and Denies hemoptysis GI Denies diarrhea and Denies nausea Skin/Breast Denies rash Neuro Reports no additional complaints Psych Reports no additional complaints Endo Reports no additional complaints Physical exam (Primary Care) Tobacco/Smoking Status: Tobacco use Status Tobacco use date assessed 09/07/23 11/18/23 10:10 Patient Tobacco Use Status Current everyday Tobacco 11/18/23 10:10 e-Cigarette/Vaping Use Never Used 11/18/23 10:10 Thrive Assessment: Date of Thrive Assessment Date Thrive assessed 09/07/23 11/18/23 10:10 Telehealth Telehealth Location of provider rendering services: practice address Location of patient: address on file Patient Identification confirmed using: Name, : Yes Telehealth method: video Patient verbally consented to treatment: Yes Patient verbally consented to billing insurance company: Yes Patient informed of any privacy concerns related to visit: Yes Minutes spent on Phone/Video with Pt.: 13 Assessment and Plan Assessment & Plan (1) Buttock wound: Code(s): S31.809A - Unspecified open wound of unspecified buttock, initial encounter Qualifiers: Encounter type: initial encounter Laterality: right Qualified Code(s): S31.819A - Unspecified open wound of right buttock, initial encounter (2) OCD (obsessive compulsive disorder): Code(s): F42.9 - Obsessive-compulsive disorder, unspecified Qualifiers: Obsessive-compulsive disorder type: mixed obsessional thoughts and acts Qualified Code(s): F42.2 - Mixed obsessional thoughts and acts Plan Patient is a 48-year-old female this is a telemedicine video conference Patient have psychiatric illness of severe OCD, which present with picking on skin She has developed sore on her right buttock which is oozing slightly grayish yellow secretions I am prescribing doxycycline for the patient she is to take 1 b.i.d. for 7 days Patient is to get back to me if still have the sore after finishing antibiotic. Her OCD she will address with her psychiatrist Medications: New doxycycline hyclate 100 mg PO BID 20 caps 0RF Coding Level of Care Code Tele Est Pt Level 3 (00227) Diagnoses Wound of right buttock, initial encounter S31.819A Encounter type: initial encounter Laterality: right Mixed obsessional thoughts and acts F42.2 Obsessive-compulsive disorder type: mixed obsessional thoughts and acts
== END 2023-11-19 08:21 | disposition home or self-care (01) ==
LOC: HO.HMGC 07:34
PROVIDERS: PCP Internal Medicine; Visit Provider Internal Medicine
DX: S31.819A Unspecified open wound of right buttock, initial encounter (principal); F42.2 Mixed obsessional thoughts and acts
CPT/HCPCS: 99213

== ENCOUNTER 2023-11-29 11:23 | Outpatient (AMB) | payer OTHER, SELFPAY ==
[2023-11-29 11:25] VITALS: BP 132/64; PULSE 66; O2SAT 99; BMI 28.9
--- NOTE | 2023-11-29 11:25 | A.OFFVIS_ITS ---
Intake Vital Signs 11/29/23 11:25 Height 5 ft 7 in Weight 184 lb 4.903 oz BMI 28.9 BP 132/64 Blood Pressure Location Lt brachial Position Sitting Pulse 66 Pulse Source Pulse Oximeter Pulse Oximetry (%) 99 Oxygen Delivery Method Room Air Intake Visit Reasons: Colonoscopy screening Intake Note: pt here for colonoscopy screening Sheet [employer] Required: No Information Interpreted: non-clinical & clinical Accompanied by: Self / Same As Patient Allergies divalproex sodium [Depakote] Allergy (Intermediate, Verified 11/29/23 11:26) anger HPI Colonoscopy screening HPI Details LAST VISIT Diarrhea Patient reports diarrhea but then she would feel like she is constipated. Patient can take [id number] fiber supplement to help bulk her stools. I will rule out any malabsorption check vitamin-D, B12, folic acid. Check for IBD and celiac disease. Will check stool for cultures, ova parasites, leukocytes. Nausea & vomiting Patient was encouraged to avoid dietary triggers. I will send her script for Reglan. Patient was encouraged to take it once a day for now and see how she does. She is agreeable to this. She will call me if she will have worsening symptoms. Abdominal pain Patient reports that her abdominal pain is subsiding. Patient has finished her antibiotic for colitis. Recently seen in the ED for abdominal pain CT scan showed mild colonic colitis. Area not specified in the report. Irritable bowel syndrome Postprandial abdominal pain and broaching, related to colitis. Patient does report that she had no symptoms for sometimes, most likely IBS with both diarrhea and constipation. Patient reports that she might have diarrhea few times and then she will feel constipated. Discussed with patient FODMAP diet. List provided of food that she should avoid and food that is recommended. She will try that and home. We will also rule out other DD like IBD, celiac disease, malabsorption. Patient is agreeable to plan of care and verbalizes understanding of instructions. She was given the opportunity to ask questions all questions answered. ? Thank you for allowing me to participate in care Plan Orders Orders Vitamin B12 and Folate 08/06/21 R19.7 Lipase 08/06/21 R19.7 TSH reflex Free T4 08/06/21 Z12.11 Vitamin D 25-OH (D2 and D3) 08/06/21 E55.9 Transglutaminase IgA 08/06/21 R10.11 Transglutaminase Ab IgG 08/06/21 R14.0 H pylori Ag Stool 08/06/21 K21.9 Pancreatic Elastase-1 08/06/21 R19.7 C Reactive Protein 08/06/21 K58.9 [facility] SGI 08/06/21 R10.9 Stool Culture 08/06/21 R19.7 Ova and Parasite 08/06/21 R19.7 Leukocytes Stool Qualitative 08/06/21 R19.7 Medications Changed From metoclopramide HCl 5 mg PO .every 8 hours PRN 7 tabs 0RF nausea and vomiting R11.2 To metoclopramide HCl (Reglan) 5 mg PO DAILY PRN 20 tabs 0RF nausea and vomiting R11.2 TODAY'S VISIT: Patient is here today to discuss going for colonoscopy. Previously seen in the office couple years ago for symptoms of IBS with frequent loose stools, nausea and vomiting. Patient reports that she believes it was related to marijuana. Since then patient has not been having any loose stools or abdominal pain. However patient does reports to have occasional postprandial epigastric pain and acid reflux. Patient denies occasional dyspepsia without dysphagia or odynophagia. Takes [id number] Prilosec, however states that she does not feel like it is helping. Patient denies eating late at night. Patient states that she is trying to avoid certain food. Patient denies any issues with anesthesia in the past. No history of sleep apnea. Not on any anticoagulation medication. PFSH Family History Other Mental health disorder Social History Housing: Apartment Alcohol intake: unknown Patient Tobacco Use Status: Current everyday Tobacco user e-Cigarette/Vaping Use: Never Used Substance Use Type: Marijuana Current occupational status: unemployed Cognitive needs: No Hearing needs: No Vision needs: Yes Physical Exam Vital Signs: BMI result Body Mass Index 29.4 Assessment & Plan Assessment & Plan (1) Colon cancer screening: Code(s): Z12.11 - Encounter for screening for malignant neoplasm of colon (2) GERD (gastroesophageal reflux disease): Code(s): K21.9 - Gastro-esophageal reflux disease without esophagitis Qualifiers: Esophagitis presence: esophagitis presence not specified Qualified Code(s): K21.9 - Gastro-esophageal reflux disease without esophagitis Plan Patient can start taking pantoprazole in the morning half an hour before breakfast. Discussed with patient avoiding dietary triggers in late night snacking. Staying upright for minimum 3 hours after meals discussed with patient. Patient will be sent for upper endoscopy to rule out gastritis, duodenitis, esophagitis, gastric or peptic ulcers, H pylori, Rodriguez's. Patient will go for her 1st colonoscopy. What to expect before during and after procedure discussed with patient. She has not on any anticoagulation medication. Denies any cardiac or respiratory symptoms. No issues with anesthesia in the past. No history of sleep apnea. Clear liquid diet and good bowel prep stressed with patient. I will see her after the procedure, sooner on as needed basis. Patient is agreeable to this plan and verbalizes understanding of instructions. She was given the opportunity to ask questions and all questions answered. Thank you for allowing me to participate in her care Medications: New bisacodyl (Dulcolax (bisacodyl)) take 4 tabs at noon the day before your colonoscopy 20 mg (4 x 5 mg) PO ONCE 1 day 4 tabs 0RF Z12.11 - Encounter for screening for malignant neoplasm of colon polyethylene glycol 3350 (Miralax) As directed by gastroenterology department at [facility] 238 grams PO ONCE 238 grams 0RF Z12.11 - Encounter for screening for malignant neoplasm of colon pantoprazole take one tablet half an hour before breakfast 40 mg PO DAILY 90 tabs 2RF K21.9 - Gastro-esophageal reflux disease without esophagitis Coding Level of Care Code Est Pt Level 4 (08897) Diagnoses Colon cancer screening Z12.11 Gastroesophageal reflux disease, unspecified whether esophagitis present K21.9 Esophagitis presence: esophagitis presence not specified Time Spent (min) 40 Comment 25 minutes spent with patient and additional 15 minutes spent reviewing her records
== END 2023-11-29 12:14 | disposition home or self-care (01) ==
PROVIDERS: PCP Internal Medicine; Visit Provider Nurse Practitioner Family
DX: K21.9 Gastro-esophageal reflux disease without esophagitis (principal); Z12.11 Encounter for screening for malignant neoplasm of colon
CPT/HCPCS: 99214

== ENCOUNTER → 2023-11-29 11:23 | Outpatient (BNVA) | payer OTHER, SELFPAY | PROVIDERS: PCP Internal Medicine; Visit Provider Nurse Practitioner Family ==

== ENCOUNTER 2023-12-31 07:24 | Outpatient (AMB) | payer OTHER, SELFPAY ==
--- NOTE | 2023-12-31 07:54 | A.OFFPC_ITS ---
Intake Visit Reasons: Discuss Med~ [phone] Allergies divalproex sodium [Depakote] Allergy (Intermediate, Verified 11/29/23 11:26) anger Medication List - Last Reconciled 12/31/23 by Shonda Caldwell MD albuterol sulfate 90 mcg/actuation 2 puffs inhalation Q6H PRN 30 days albuterol sulfate 90 mcg/actuation (ProAir RespiClick) 2 inhalations inhalation Q4-6H PRN bisacodyl (Dulcolax (bisacodyl)) 20 mg (4 x 5 mg) PO ONCE 1 day gabapentin 600 mg PO TID lamotrigine 100 mg PO DAILY pantoprazole 40 mg PO DAILY polyethylene glycol 3350 (Miralax) 238 grams PO ONCE simvastatin 20 mg PO DAILY Tobacco use date assessed: 09/07/23 Dental Screening Dental Screen Date: 09/07/23 HPI Discuss Med~ [phone] HPI Details Patient is a 48-year-old female this is a telemedicine video conference Patient says that she has been smoking for a while and currently smoking 1 pack every 2 days She would like to have assistance quitting smoking Patient have OCD and anxiety, she has tried Chantix in the past which caused nightmares We talked about Wellbutrin and Nicoderm patches I think combination of both might work I have sent 14 mg Nicoderm patches, patient is to change 1 daily And Wellbutrin 150 mg daily in the morning We will book another appointment in 2 months to follow-up on that [facility] Family History Other Mental health disorder Social History Housing: Apartment Alcohol intake: unknown Patient Tobacco Use Status: Current everyday Tobacco user e-Cigarette/Vaping Use: Never Used Substance Use Type: Marijuana Current occupational status: unemployed Cognitive needs: No Hearing needs: No Vision needs: Yes Questionnaire Thrive Questionnaire Date Thrive assessed: 09/07/23 ADDIE-7 AMB Questionnaire ADDIE-7 Date ADDIE - 7 assessed: 09/07/23 Source: Developed by Drs. Ulises Thakur, Lia Banerjee, Sulaiman Berg and colleagues, with an educational javon from [employer]. Review of Systems Const Denies chills and Denies fever(s) ENT Denies epistaxis and Denies nasal discharge Card Denies chest pain Resp Denies chest congestion, Denies cough and Denies hemoptysis GI Denies diarrhea and Denies nausea Skin/Breast Denies rash Neuro Reports no additional complaints Psych Reports no additional complaints Endo Reports no additional complaints Physical exam (Primary Care) Tobacco/Smoking Status: Tobacco use Status Tobacco use date assessed 09/07/23 11/19/23 07:33 Patient Tobacco Use Status Current everyday Tobacco 11/19/23 07:33 e-Cigarette/Vaping Use Never Used 11/19/23 07:33 Thrive Assessment: Date of Thrive Assessment Date Thrive assessed 09/07/23 11/19/23 07:33 Telehealth Telehealth Telehealth Platform: [employer] Location of provider rendering services: practice address Location of patient: address on file Patient Identification confirmed using: Name, : Yes Telehealth method: video Patient verbally consented to treatment: Yes Patient verbally consented to billing insurance company: Yes Patient informed of any privacy concerns related to visit: Yes Minutes spent on Phone/Video with Pt.: 14 Assessment and Plan Assessment & Plan (1) Nicotine dependence: Code(s): F17.200 - Nicotine dependence, unspecified, uncomplicated Qualifiers: Nicotine product type: cigarettes Substance use status: uncomplicated Qualified Code(s): F17.210 - Nicotine dependence, cigarettes, uncomplicated Plan Patient is a 48-year-old female this is a telemedicine video conference Patient says that she has been smoking for a while and currently smoking 1 pack every 2 days She would like to have assistance quitting smoking Patient have OCD and anxiety, she has tried Chantix in the past which caused nightmares We talked about Wellbutrin and Nicoderm patches I think combination of both might work I have sent 14 mg Nicoderm patches, patient is to change 1 daily And Wellbutrin 150 mg daily in the morning We will book another appointment in 2 months to follow-up on that Medications: New nicotine (Nicoderm CQ) 1 patch transdermal DAILY 28 ea 2RF bupropion HCl SR (Wellbutrin SR) 150 mg PO QAM 90 tabs 0RF Coding Level of Care Code Tele Est Pt Level 3 (33844) Diagnoses Cigarette nicotine dependence without complication F17.210 Nicotine product type: cigarettes Substance use status: uncomplicated
== END 2023-12-31 08:31 | disposition home or self-care (01) ==
LOC: HO.HMGC 07:24
PROVIDERS: PCP Internal Medicine; Visit Provider Internal Medicine
DX: F17.210 Nicotine dependence, cigarettes, uncomplicated (principal)
CPT/HCPCS: 99213

== ENCOUNTER 2024-03-23 06:51 | Day surgery (SDC) | payer OTHER, SELFPAY ==
--- NOTE | 2024-03-22 10:29 | P.CONAN_ITS ---
Documented by User: Carmen Merino NP 03/22/24 10:32 HPI - Anesthesia Eval Consult details Narrative: 48yo F for Upper Endoscopy and Colonoscopy PMFSH Active Problems Active Problems: All Active Problems Buttock wound (Acute) OCD (obsessive compulsive disorder) (Acute) Lipid disorder (Acute) Serum lipids high (Acute) Nicotine dependence (Acute) Asthma, mild intermittent (Acute) Colon cancer screening (Acute) Muscle fasciculation (Acute) Family history of coronary artery disease in father (Acute) Encounter for general adult medical examination with abnormal findings (Acute) Recurrent abdominal pain (Acute) Abdominal pain (Acute) Irritable bowel syndrome (Acute) Vaginal yeast infection (Acute) Environmental allergies (Acute) Asthma, moderate persistent (Acute) Bipolar disorder (Acute) Past Medical History Medical History Marijuana smoker Asthma Anxiety History of OCD (obsessive compulsive disorder) Bipolar disorder PONV (postoperative nausea and vomiting) Constipation GERD (gastroesophageal reflux disease) Smoker Chronic bronchitis Cough Family History Family History Other Mental health disorder Surgical History Surgical History Hx of tubal ligation Social History Social History Housing: Apartment Are you a primary caregiver assisted living to a significant other at home: No Do you presently have visiting nurse or other home services: No Alcohol intake: unknown Patient Tobacco Use Status: Current everyday Tobacco user Tobacco use type: Cigarette Cigarettes Per Day: 10 Smoked in Last 30 Days: Yes e-Cigarette/Vaping Use: Never Used Use of substances other than those prescribed or required for medical reasons: Yes Substance Use Type: Marijuana Substance Use Frequency: Daily Have you been hit, kicked, punched, or otherwise hurt by someone within the past year? If so, by whom?: No Are you DNR?: No Advance Directives: No Advance Directives Information Provided: Yes Advance Directives on File: No Recently lost weight without trying: No Nutrition Risks: No Nutritional Risk Patient : No FDLMP: irregular Poor oral hygiene: No Current occupational status: unemployed Cognitive needs: No Hearing needs: No Vision needs: Yes Meds Allergies Allergy/AdvReac Type Severity Reaction Status Date / Time divalproex sodium [Depakote] Allergy Intermediate anger Verified 11/29/23 11:26 Home Medications ?Medication ?Instructions ?Recorded ?Confirmed ?Last Taken ?Type gabapentin 600 mg tablet 600 mg PO BEDTIME 02/26/21 03/21/24 03/23/24 History lamotrigine 100 mg tablet 100 mg PO DAILY 09/07/23 03/21/24 03/23/24 History albuterol sulfate 90 mcg/actuation 2 inh inhalation Q4-6H PRN wheezing 03/21/24 03/21/24 Unknown History breath activated powder inhaler (ProAir RespiClick) gabapentin 300 mg capsule 300 mg PO DAILY 03/21/24 03/21/24 Unknown History Exam Height,Weight and Vital Signs: Height 5 ft 6 in Weight 84.368 kg Pertinent Lab Results Pertinent Lab Results: Laboratory Tests 09/07/23 11:09 WBC 8.3 Hgb 12.6 Hct 39.6 D Plt Count 316 Sodium 140 Potassium 4.6 Chloride 109 H Carbon Dioxide 25 BUN 24 H Creatinine 0.83 Narrative Narrative: EKG 08/2023 NSR @ 62 Assessment and Plan Assessment Anesthesia Assessment: Chart Reviewed Documented by User: Vani Rivera MD 03/23/24 07:38 [facility] Past Medical History Medical History Marijuana smoker Asthma Anxiety History of OCD (obsessive compulsive disorder) Bipolar disorder PONV (postoperative nausea and vomiting) Constipation GERD (gastroesophageal reflux disease) Smoker Chronic bronchitis Cough Family History Family History Other Mental health disorder Family history of problems with anesthesia: No Surgical History Surgical History Hx of tubal ligation History of Problems with Anesthesia: No Social History Social History Housing: Apartment Are you a primary caregiver assisted living to a significant other at home: No Do you presently have visiting nurse or other home services: No Alcohol intake: unknown Patient Tobacco Use Status: Current everyday Tobacco user Tobacco use type: Cigarette Cigarettes Per Day: 10 Smoked in Last 30 Days: Yes e-Cigarette/Vaping Use: Never Used Use of substances other than those prescribed or required for medical reasons: Yes Substance Use Type: Marijuana Substance Use Frequency: Daily Have you been hit, kicked, punched, or otherwise hurt by someone within the past year? If so, by whom?: No Are you DNR?: No Advance Directives: No Advance Directives Information Provided: Yes Advance Directives on File: No Recently lost weight without trying: No Nutrition Risks: No Nutritional Risk Patient : No FDLMP: irregular Poor oral hygiene: No Current occupational status: unemployed Cognitive needs: No Hearing needs: No Vision needs: Yes Meds Allergies Allergy/AdvReac Type Severity Reaction Status Date / Time divalproex sodium [Depakote] Allergy Intermediate anger Verified 11/29/23 11:26 Home Medications ?Medication ?Instructions ?Recorded ?Confirmed ?Last Taken ?Type gabapentin 600 mg tablet 600 mg PO BEDTIME 02/26/21 03/21/24 03/23/24 History lamotrigine 100 mg tablet 100 mg PO DAILY 09/07/23 03/21/24 03/23/24 History albuterol sulfate 90 mcg/actuation 2 inh inhalation Q4-6H PRN wheezing 03/21/24 03/21/24 Unknown History breath activated powder inhaler (ProAir RespiClick) gabapentin 300 mg capsule 300 mg PO DAILY 03/21/24 03/21/24 Unknown History Exam Airway Mallampati Class: II TM Dist: >3cm Neck ROM: Full Heart: rrr Lungs: cta Assessment and Plan Assessment Anesthesia Assessment: Anesthesia Plan Discussed Final Anesthetic Review Family History of Problems with Anesthesia: No History of Problems with Anesthesia: No NPO: Yes ASA Class: III Final Preanesthetic Review: No Changes in Pt Med Stat, Meds/Allgs Chart Reviewed, Consent Obtained/Reviewed and Anes Risks/Benef Reviewed Patient Risk: Intermediate Procedure Risk: Low Anesthetic Plan Anesthetic Plan: MAC: Disposition: Standard PACU
--- NOTE | 2024-03-23 06:40 | MHC.SHP ---
Pre-Procedural Eval Section A - 24 Hr Update-Section A only Date of Service: 03/23/24 Section B - Complete if H&P > 30 days Chief Complaint: gerd, screening Relevant Family History (Specify if Yes): No Relevant Social History: Tobacco Use (THC use ) Present Medications: None Medical History: Significant History (Marijuana smoker Asthma Anxiety History of OCD (obsessive compulsive disorder) Bipolar disorder PONV (postoperative nausea and vomiting) Constipation GERD (gastroesophageal reflux disease) Smoker Chronic bronchitis Cough) History of Previous Operations: Relevant previous surgery/procedure and date(s) ( Hx of tubal ligation) Allergies: Allergies Allergy/AdvReac Type Severity Reaction Status Date / Time divalproex sodium [Depakote] Allergy Intermediate anger Verified 11/29/23 11:26 Review of Systems Sugical H&P ROS: Negative: Constitution, Cardiovascular, Respiratory, Neurological, Psychiatric, Hem-Onc, Allergic/Immunologic, Gastrointestinal, Genitourinary, Musculoskeletal, Integumentary, Endocrine and Eyes/Ears/Nose/Throat Exam Surgical H&P Exam: Normal: HEENT, Normal: Heart, Normal: Lungs, Normal: Extremities, Normal: Abdomen, Normal: Skin and Normal: Neurological Plan Diagnosis/Plan: Unchanged I have reviewed the history and physical and performed a pertinent physical examination on my patient. No changes have occurred unless specified. Time Spent With Patient Time: Total time managing care of this patient today ____ minutes.
[2024-03-23 06:53] VITALS: BP 125/72; PULSE 75; RESP 20; TEMP 36.1; O2SAT 98
[2024-03-23] MEDS: Lactated Ringers 1,000 ML 100 ML IVCONT (07:18)
--- NOTE | 2024-03-23 08:37 | HO.OPN-COLON ---
Colonoscopy Operative Note Operative Note Date of Service: 03/23/24 Narrative: Operative Information Procedure Description: EGD, Colonoscopy Indication: GERD, screening Anesthesia: MAC FLEXIBLE TRANSORAL UPPER GASTROINTESTINAL ENDOSCOPY AND COLONOSCOPY PROCEDURE NOTE UPPER ENDOSCOPY Consent: Indications for the procedure and potential complications of bleeding, perforation, reaction to medications and missed diagnosis were discussed with the patient and informed consent was obtained. Instrument: Olympus GIF H 190 J mid size upper endoscope Monitoring: Vital signs and clinical assessment, continuous EKG monitoring, Pulse oximetry, Carbon Dioxide monitoring and blood pressure monitoring were done throughout the procedure. Procedure: The patient was placed in the left lateral decubitis position and pre-procedure medications were administered and a bite block was placed. The endoscope was inserted into the mouth and advanced under direct vision to the third part of duodenum. A careful inspection was made as the upper endoscope was withdrawn including a retroflexed examination of the proximal stomach; Findings and interventions are described below. Findings: Larynx:normal Esophagus: GE junction at 40 cm, diaphragm hiatus at 40 cm, normal mucosa - bx taken from distal and proximal esophagus Stomach: Mild erythema. Biopsies were obtained. Grade 2 flap valve on retroflexed examination of the cardia. Duodenum: Normal bulb and descending duodenum, Intervention: Biopsies as noted above, COLONOSCOPY Instrument: Olympus variable stiffness pediatric scope 190L Colonoscopy Monitoring: Vital signs and clinical assessment, continuous EKG monitoring, Pulse oximetry, Carbon Dioxide monitoring and blood pressure monitoring were done throughout the procedure. Colon withdrawal time was 9 minutes. Procedure: The patient was placed in the left lateral decubitis position and pre-procedure medications were administered. After a digital rectal examination of the ano-rectum, the video colonoscope was inserted into the rectum and advanced through the colon to the cecum/TI. The colonoscope was slowly withdrawn in a retrograde panoramic fashion and the colon mucosa was carefully examined including a retroflexed view of the rectum. Findings and interventions are described below. Procedure Difficulty:moderate Findings: Terminal Ileum-normal Cecum:normal Ascending Colon: normal Transverse Colon -normal Descending Colon:normal Sigmoid Colon: 6-8 mm sessile polyp removed with cold snare Rectum: Retroflexion with small internal hemorrhoids, grade I Anorectum - normal Colon preparation: [place] Bowel Preparation Scale Right colon; 2 Transverse colon: 2 Left colon; 2 (0 = Unprepared colon segment with mucosa not seen due to solid stool that cannot be cleared. 1 = Portion of mucosa of the colon segment seen, but other areas of the colon segment not well seen due to staining, residual stool and/or opaque liquid. 2 = Minor amount of residual staining, small fragments of stool and/or opaque liquid, but mucosa of colon segment seen well. 3 = Entire mucosa of colon segment seen well with no residual staining, small fragments of stool or opaque liquid) Impression and Post Procedure Diagnosis: Endoscopy Findings: mild gastritis Colonoscopy Findings: colon polyp internal hemorrhoids Plan: Await Pathology results Repeat Colonoscopy in 5-7 years if adenoma, otherwise 10 yrs for hyperplastic polyp or earlier if clinically indicated High fiber diet leaflet avoid straining at stool, epsom salts and sitz bath, anusol supps or cream GERD precautions Above findings were reviewed with the patient and relevant handouts were provided if indicated.
[2024-03-23 08:42] VITALS: BP 117/81; PULSE 84; RESP 16; TEMP 36.3; O2SAT 97
[2024-03-23 08:57] VITALS: BP 147/72; PULSE 76; RESP 20; TEMP 36.1; O2SAT 99
== END 2024-03-23 09:53 | disposition home or self-care (01) ==
PROVIDERS: PCP Internal Medicine; Visit Provider Internal Medicine Gastroenterology
PROC: (CPT 45385; principal; 2024-03-23 08:10)
DX: Z12.11 Encounter for screening for malignant neoplasm of colon (principal); K63.5 Polyp of colon; K64.0 First degree hemorrhoids; K59.00 Constipation, unspecified; K21.9 Gastro-esophageal reflux disease without esophagitis; K29.60 Other gastritis without bleeding; K64.8 Other hemorrhoids; K44.9 Diaphragmatic hernia without obstruction or gangrene; J42 Unspecified chronic bronchitis; J45.909 Unspecified asthma, uncomplicated; Z79.899 Other long term (current) drug therapy; Z88.8 Allergy status to other drugs, medicaments and biological substances; F17.210 Nicotine dependence, cigarettes, uncomplicated; Z56.0 Unemployment, unspecified
CPT/HCPCS: 45385; 43239; 88305; 88313; 88342; J1596; J2704

== ENCOUNTER → 2024-03-23 06:51 | Outpatient (BNV) | payer OTHER, SELFPAY | PROVIDERS: PCP Internal Medicine; Visit Provider Internal Medicine Gastroenterology | DX: Z12.11 Encounter for screening for malignant neoplasm of colon (principal); K63.5 Polyp of colon; K64.0 First degree hemorrhoids; K21.9 Gastro-esophageal reflux disease without esophagitis; K29.70 Gastritis, unspecified, without bleeding | CPT/HCPCS: 43239; 45385 ==

== ENCOUNTER 2024-05-09 09:57 | Outpatient (AMB) | payer OTHER, SELFPAY ==
[2024-05-09 09:58] VITALS: BP 104/68; PULSE 64; TEMP 36.9; O2SAT 98; BMI 29.4
--- NOTE | 2024-05-09 09:58 | AM.OFFWIN_ITS ---
Intake Vital Signs 05/09/24 09:58 Height 5 ft 6 in Weight 182 lb BMI 29.4 BP 104/68 Blood Pressure Location Rt brachial Position Sitting Pulse 64 Pulse Source Pulse Oximeter Temp 98.4 F Temp Source Oral Pulse Oximetry (%) 98 Oxygen Delivery Method Room Air Intake Visit Reasons: EP-sore throat, diahrea Intake Note: pt c/ sore throat and diarrhea, fatigue, loss of voice. Started a week ago Patient Tobacco Use Status: Current everyday Tobacco user Allergies divalproex sodium [Depakote] Allergy (Intermediate, Verified 05/09/24 10:07) anger Do you need a note to return to daycare/school/sports/work: Yes HPI HPI Comments History of Present Illness Details 49 y/o female patient who presents to [facility] walk in clinic with c/o sore throat, loss of voice, fatigue, and diarrhea for 1 week now. had Sore- throat last week. [facility] Medical History Marijuana smoker Asthma Anxiety History of OCD (obsessive compulsive disorder) Bipolar disorder PONV (postoperative nausea and vomiting) Constipation GERD (gastroesophageal reflux disease) Smoker Chronic bronchitis Cough Surgical History Hx of tubal ligation Family History Other Mental health disorder Social History Housing: Apartment Are you a primary careers adviser to a significant other at home: No Do you presently have visiting nurse or other home services: No Alcohol intake: unknown Patient Tobacco Use Status: Current everyday Tobacco user Tobacco use type: Cigarette Cigarettes Per Day: 10 e-Cigarette/Vaping Use: Never Used Substance Use Type: Marijuana Current occupational status: unemployed Cognitive needs: No Hearing needs: No Vision needs: Yes Review of Systems Const All systems reviewed & are unremarkable except as noted in HPI and below Physical Exam Vital Signs: Last Vital Signs Temp 98.4 F 05/09/24 09:58 Pulse 64 05/09/24 09:58 BP 104/68 05/09/24 09:58 Pulse Ox 98 05/09/24 09:58 Oxygen Delivery Method Room Air 05/09/24 09:58 BMI result Body Mass Index 29.4 Const General: cooperative and no acute distress Orientation/consciousness: patient oriented x3 HEENT Head: Yes normocephalic Ears: external ears normal and TM's normal bilaterally General nose exam: Normal external nose present Face and sinus: Yes normal facial exam Mouth: moist mucous membranes and Abnormal oral and palatal mucosa present erythematous Neck Lymphatic: lymphadenopathy (Neck) Resp Effort & Inspection: normal respiratory effort and able to speak in complete sentences Auscultation: clear to auscultation bilaterally, no crackles, no rales, no rhonchi and no wheezes Cardio Heart sounds: S1 normal heart sound present and S2 normal heart sound present Neuro General: patient oriented x3 Results AMB Rapid Strep AMB Rapid Strep Positive Last Edit by Carlos Constantino CMA on 05/09/24 10:18 Results Reviewed Results Reviewed: Laboratory Last Values Strep Scn Rapid Clinic Positive 05/09/24 10:17 Assessment & Plan Assessment & Plan (1) Acute pharyngitis: Code(s): J02.9 - Acute pharyngitis, unspecified Qualifiers: Pharyngitis/tonsillitis etiology: streptococcus Qualified Code(s): J02.0 - Streptococcal pharyngitis Plan: Rapid strep Positive Ordered PCN Advised gurgling salted warm water Tea with Honey Rest voice Ordered SARs Orders: Orders SARS-CoV2/FLU/RSV Today J06.9 - Acute upper respiratory infection, unspecified AMB Rapid Strep Screen Today Z13.9 - Encounter for screening, unspecified Medications: New penicillin V potassium 500 mg PO TID 10 days 30 tabs 0RF J02.0 - Streptococcal pharyngitis Coding Level of Care Code Est Pt Level 3 (81174) Diagnoses Acute streptococcal pharyngitis J02.0 Pharyngitis/tonsillitis etiology: streptococcus Time Spent (min) 15
== END 2024-05-09 10:44 | disposition home or self-care (01) ==
PROVIDERS: PCP Internal Medicine; Visit Provider Nurse Practitioner Family
DX: J02.0 Streptococcal pharyngitis (principal); Z13.9 Encounter for screening, unspecified
CPT/HCPCS: 87880; 99213

== ENCOUNTER 2024-05-09 10:17 | Outpatient (REF) | payer OTHER, SELFPAY ==
[2024-05-09 13:55] LABS: Influenza A PCR NEGATIVE (Negative); Influenza B PCR NEGATIVE (Negative); Resp Syncy Virus RNA Qual PCR NEGATIVE (Negative); SARS COV2 PCR INHOUSE NEGATIVE (Negative)
== END 2024-05-09 10:18 | disposition home or self-care (01) ==
LOC: HO.LAB 10:17
PROVIDERS: Visit Provider Nurse Practitioner Family
DX: J06.9 Acute upper respiratory infection, unspecified (principal)
CPT/HCPCS: 0241U

== ENCOUNTER 2024-05-13 16:00 | Emergency (ER) | payer OTHER, SELFPAY ==
[2024-05-13 16:04] VITALS: BP 144/92; PULSE 100; O2SAT 99
[2024-05-13 16:08] VITALS: BP 150/83; PULSE 77; RESP 19; TEMP 36.6; O2SAT 99; BMI 32.8
[2024-05-13] MEDS: 0.9 % Sodium Chloride 1,000 ML 999 ML IV (16:17)
[2024-05-13] MEDS: Ketorolac Tromethamine 15 MG/ML VIAL IVPUSH (16:18)
[2024-05-13] MEDS: LORazepam 2 MG/ML VIAL 1 MG IVPUSH ×2 (16:18→17:25)
[2024-05-13] MEDS: droPERidol 5 MG/2 ML VIAL 1.25 MG IVPUSH (16:19)
[2024-05-13 16:25] LABS: MANUAL DIFF FLAG NO
[2024-05-13 16:33] VITALS: BP 150/83; PULSE 77; RESP 19; TEMP 36.6; O2SAT 99
[2024-05-13 16:36] LABS: Basophils Absolute Auto 0.1 X10*3/uL (0.0-0.2); Basophils Percent Auto 0.4 % (0-2); Eosinophils Percent Auto 0.1 % (0-4); Hematocrit 41.6 % (37.0-47.0); Hemoglobin 14.6 g/dl (12.0-16.0); Imm Gran Abs Auto 0.06 X10*3/uL (0.00-0.03); Imm Gran Pct Auto 0.4 % (0.0-0.4); Lymphocytes Percent Auto 12.9 % (20-40); Mean Corpuscular HGB Conc 35.1 g/dl (31.0-35.0); Mean Corpuscular Hemoglobin 32.4 pg (27.0-33.0); Mean Corpuscular Volume 92.2 fL (80.0-98.0); Mean Platelet Volume 9.9 fL (9.4-12.3); Monocytes Absolute Auto 0.8 X10*3/uL (0.1-1.2); Monocytes Percent Auto 4.8 % (2-11); Neutrophils Absolute Auto 12.8 x10*3/uL (2.0-8.3); Neutrophils Percent Auto 81.4 % (45-73); Platelet Count 345 X10*3/uL (160-400); Red Blood Count 4.51 X10*6/uL (4.20-5.50); Red Cell Distribution Width 12.7 % (11.0-16.0); White Blood Count 15.8 X10*3/uL (4.8-10.8)
[2024-05-13 16:53] LABS: Alanine Aminotransferase 20 U/L (0-31); Albumin Level 4.8 g/dL (3.5-5.0); Alkaline Phosphatase 75 U/L (39-117); Anion Gap 18 (12-20); Aspartate Amino Transferase 21 U/L (5-31); Bilirubin Total 0.5 mg/dL (0.0-1.0); Blood Urea Nitrogen 15 mg/dL (9-16); Calcium 10.4 mg/dL (8.4-10.2); Carbon Dioxide 19 mmol/L (22-29); Chloride 107 mmol/L (96-108); Creatinine Clr Calc Pharmacy 84.9; Estimated Glomerular Filt Rate > 60; Glucose Random 122 mg/dL (60-115); HCG Quantitative < 2 mIU/mL; Lipase 19 U/L (8-78); Sodium 140 mmol/L (135-145); Total Protein 8.2 g/dL (6.5-8.0)
--- NOTE | 2024-05-13 17:06 | PC.NURSE ---
Patient sleeping comfortably after medication administration. no further nausea/vomiting episodes. Even unlabored respirations. pt in nad.
[2024-05-13 17:52] LABS: Appearance Urine Clear; Color Urine Yellow; Glucose Urine UA Negative (Negative); Leukocyte Esterase Urine Negative (Negative); Nitrite Urine Negative (Negative); PH 8.5 (5.0-9.0); Specific Gravity - Urine >= 1.030 (1.005-1.025); UMIC TRIGGER UACC YES; Urine Blood Negative (Negative); Urine Ketones 80 mg/dL (Negative); Urine Protein 30 (1+) mg/dL (Neg-Trace)
[2024-05-13 17:54] LABS: Bacteria Urine None Seen (None Seen); Hyaline Casts Urine 0-2 /LPF (0-2); RBC Urine 0-2 /HPF (0-2); Squamous Epithelial Cell Urine 0-2 /HPF (0-2); WBC Urine 0-5 /HPF (0-5)
[2024-05-13 18:00] LABS: Amphetamine Screen Urine Not Detected (Not Detect); Barbiturates, Urine Not Detected (Not Detect); Benzodiazepines Screen Urine Not Detected (Not Detect); Buprenorphine Scr Not Detected (Not Detect); Cannabinoid Screen Urine POSITIVE (Not Detect); Cocaine Screen Urine Not Detected (Not Detect); Fentanyl, urine Not Detected (Not Detect); Methadone Screen, Urine Not Detected (Not Detect); Opiate Screen Urine Not Detected (Not Detect); Oxycodone Screen Urine Not Detected (Not Detect); Phencyclidine Screen Urine Not Detected (Not Detect)
--- NOTE | 2024-05-13 18:04 | ED.ABDPAIN ---
HPI - Abdominal Pain General Chief Complaint: Abdominal Pain Stated Complaint: abd pain, N/V/D X1 day, bgl 430 Time Seen by Provider: 05/13/24 16:02 Source: patient Mode of arrival: EMS Limitations: no limitations History of Present Illness ED Provider: Dr. Jason Galindo HPI narrative: 49-year-old female who presents emergency department for evaluation of abdominal pain, nausea, vomiting. Patient states that her symptoms started suddenly at 05:00 hours. She states she developed pain in her upper abdomen which she describes as a sharp constant burning sensation. She then states she had multiple episodes of vomiting and dry heaves. She states she has had similar symptoms in the past and was diagnosed with cannabis hyperemesis syndrome. She states she continues to smoke marijuana. Patient also states she was started on penicillin 5 days prior for strep throat. On presentation the patient appeared to be in severe distress secondary to her pain. She states that her pain was 10/10. Related Data Home Medications ?Medication ?Instructions ?Recorded ?Confirmed gabapentin 600 mg tablet 600 mg PO BEDTIME 02/26/21 03/21/24 lamotrigine 100 mg tablet 100 mg PO DAILY 09/07/23 03/21/24 albuterol sulfate 90 mcg/actuation 2 inh inhalation Q4-6H PRN wheezing 03/21/24 03/21/24 breath activated powder inhaler (ProAir RespiClick) gabapentin 300 mg capsule 300 mg PO DAILY 03/21/24 03/21/24 Previous Rx's ?Medication ?Instructions ?Recorded pantoprazole 40 mg tablet,delayed 40 mg PO DAILY #90 tabs 11/29/23 release simvastatin 20 mg tablet 20 mg PO DAILY High cholesterol 03/06/24 #90 tabs penicillin V potassium 500 mg 500 mg PO TID 10 days #30 tabs 05/09/24 tablet metoclopramide HCl 10 mg tablet 10 mg PO Q6H PRN nausea and 05/13/24 (Reglan) vomiting #90 tabs ondansetron 4 mg disintegrating 4 mg PO Q6-8H PRN nausea and 05/13/24 tablet vomiting #14 tabs ondansetron 8 mg disintegrating 8 mg PO Q8H #90 tabs 05/13/24 tablet Allergies Allergy/AdvReac Type Severity Reaction Status Date / Time divalproex sodium [Depakote] Allergy Intermediate anger Verified 05/13/24 16:10 Review of Systems Review of Systems Yes all other systems are reviewed and are negative [facility] Past Medical History Medical History Marijuana smoker Asthma Anxiety History of OCD (obsessive compulsive disorder) Bipolar disorder PONV (postoperative nausea and vomiting) Constipation GERD (gastroesophageal reflux disease) Smoker Chronic bronchitis Cough Surgical History Hx of tubal ligation Family History Family History Other Mental health disorder Social History Social History Housing: Apartment Are you a primary home care nurse to a significant other at home: No Do you presently have visiting nurse or other home services: No Alcohol intake: unknown Patient Tobacco Use Status: Current everyday Tobacco user Tobacco use type: Cigarette Cigarettes Per Day: 10 Smoked in Last 30 Days: Yes e-Cigarette/Vaping Use: Never Used Use of substances other than those prescribed or required for medical reasons: Yes Substance Use Type: Marijuana Substance Use Frequency: Monthly Last Used Substance: Hours (ago) Advance Directives: No Advance Directives Information Provided: No Do you have a plan to hurt others: No Plan Current occupational status: unemployed Cognitive needs: No Hearing needs: No Vision needs: Yes Physical Exam ED Vital Signs: Vital Signs - 24 hr 05/13/24 16:08 05/13/24 16:33 05/13/24 18:33 Temperature 98 F 98 F 98.1 F Pulse Rate 77 77 87 Respiratory Rate 19 19 18 Blood Pressure 150/83 H 150/83 H 110/57 L Pulse Oximetry 99 99 98 Oxygen Delivery Method Room Air Room Air Room Air BMI result Body Mass Index 32.8 Vital signs revealed an elevated blood pressure of 150/83 otherwise unremarkable Exam: General: Awake, alert , patient was in significant distress secondary to abdominal pain and her vomiting Head: Normocephalic, atraumatic EENT: PERRL, Lids normal, sclera normal, conjunctiva normal, nose normal , ears normal, throat without erythema or exudates Neck: Supple, no adenopathy Lung: breath sounds symmetric, no wheezing, rales or rhonchi Chest: symmetric movement, nontender Heart: regular rate and rhythm, normal S1, S2 no murmurs or rubs Abdomen: Moderate to severe epigastric tenderness, normoactive bowel sounds, no rebound, no voluntary or involuntary guarding Back: no vertebral tenderness, no CVAT Extremities: no deformities, moves all extremities symmetrically Neuro: Awake, alert, oriented, normal speech, cranial nerves intact, moves all extremities symmetrically Psych: In distress secondary to pain Medical Decision Making Medical Decision Making [facility] Narrative: 49-year-old female history of cannabis hyperemesis syndrome who presents emergency department for evaluation of abdominal pain, nausea, vomiting which started this morning at 05:00 hours. Patient has had multiple episodes of vomiting and severe abdominal pain, she states is similar to her presentations in the past with cannabis hyperemesis syndrome. Exam did reveal the patient was in distress secondary to her pain and she had significant epigastric tenderness. Differential diagnosis: ?Includes but is not limited to gastritis, peptic ulcer disease, pancreatitis, cannabis hyperemesis syndrome Following evaluation was ordered: CBC, CMP, quantitative beta-hCG seen, urine drug screen, magnesium, lipase, urinalysis Patient was treated with the following: Droperidol 1.25 mg IV, lorazepam 1 mg IV x2, Toradol 15 mg IV, Zofran 4 mg IV and normal saline IV x1 L Course: Patient did get significant improvement with the above treatment. Patient's laboratory evaluation did not reveal any significant abnormalities to explain your pain. Patient's symptoms and presentation are consistent with cannabis hyperemesis syndrome. Patient was discharged home with a prescription for Zofran 4 mg ODT every 6 hours as needed for nausea and vomiting. She was given printed and verbal instructions and discharged home Admission/Observation Consideration of admission/observation: Escalation of care including admission/observation considered (Yes) Lab Data [facility] Lab Attestation statement: I reviewed the patient's lab results. 05/13/24 16:21 05/13/24 16:22 Labs: Lab Results 05/13/24 05/13/24 05/13/24 Range/Units 16:21 16:22 17:44 WBC 15.8 H (4.8-10.8) X10*3/uL RBC 4.51 (4.20-5.50) X10*6/uL Hgb 14.6 (12.0-16.0) g/dl Hct 41.6 (37.0-47.0) % MCV 92.2 (80.0-98.0) fL MCH 32.4 (27.0-33.0) pg MCHC 35.1 H (31.0-35.0) g/dl RDW 12.7 (11.0-16.0) % Plt Count 345 (160-400) X10*3/uL MPV 9.9 (9.4-12.3) fL Immature Gran % (Auto) 0.4 (0.0-0.4) % Neut % (Auto) 81.4 H (45-73) % Lymph % (Auto) 12.9 L (20-40) % [place] % (Auto) 4.8 (2-11) % Eos % (Auto) 0.1 (0-4) % Baso % (Auto) 0.4 (0-2) % Lymph # (Auto) 2.0 (1.2-4.9) X10*3/uL [place] # (Auto) 0.8 (0.1-1.2) X10*3/uL Eos # (Auto) 0.0 (0.0-0.4) X10*3/uL Baso # (Auto) 0.1 (0.0-0.2) X10*3/uL Abs Immat Gran (auto) 0.06 H (0.00-0.03) X10*3/uL Absolute Neuts (auto) 12.8 H (2.0-8.3) x10*3/uL Absolute Nucleated RBC 0.000 (0.0-0.012) X10*3/uL Nucleated RBC % (auto) 0.0 (0.0-0.2) /100WBC Sodium 140 (135-145) mmol/L Potassium 4.0 (3.3-5.1) mmol/L Chloride 107 (96-108) mmol/L Carbon Dioxide 19 L (22-29) mmol/L Anion Gap 18 (12-20) BUN 15 (9-16) mg/dL Creatinine 0.84 (0.5-1.4) mg/dL Estim Creat Clear Calc 84.9 Estimated GFR > 60 Random Glucose 122 H (60-115) mg/dL Calcium 10.4 H D (8.4-10.2) mg/dL Magnesium 2.0 (1.6-2.6) mg/dL Total Bilirubin 0.5 (0.0-1.0) mg/dL AST 21 (5-31) U/L ALT 20 (0-31) U/L Alkaline Phosphatase 75 (39-117) U/L Total Protein 8.2 H (6.5-8.0) g/dL Albumin 4.8 (3.5-5.0) g/dL Lipase 19 (8-78) U/L Beta HCG, Quant < 2 mIU/mL Urine Color Yellow Urine Appearance Clear Urine pH 8.5 (5.0-9.0) Ur Specific [place] >= 1.030 H (1.005-1.025) Urine Protein 30 (1+) H (Neg-Trace) mg/dL Urine Glucose (UA) Negative (Negative) mg/dL Urine Ketones 80 (Negative) mg/dL Urine Blood Negative (Negative) Urine Nitrite Negative (Negative) Ur Leukocyte Esterase Negative (Negative) Urine RBC 0-2 (0-2) /HPF Urine WBC 0-5 (0-5) /HPF Ur Squamous Epith Cells 0-2 (0-2) /HPF Urine Bacteria None Seen (None Seen) Hyaline Casts 0-2 (0-2) /LPF Urine Opiates Screen Not Detected (Not Detect) Ur Buprenorphine Scrn Not Detected (Not Detect) ng/mL Ur Oxycodone Screen Not Detected (Not Detect) ng/mL Urine Methadone Screen Not Detected (Not Detect) ng/mL Urine Fentanyl Screen Not Detected (Not Detect) Ur Barbiturates Screen Not Detected (Not Detect) Ur Phencyclidine Scrn Not Detected (Not Detect) Ur Amphetamines Screen Not Detected (Not Detect) U Benzodiazepines Scrn Not Detected (Not Detect) Urine Cocaine Screen Not Detected (Not Detect) U Marijuana (THC) Screen POSITIVE H (Not Detect) Prescription Management I considered prescription management with: Other (Antiemetics-Zofran) Medications Administered Discontinued Medications Generic Name Dose Route Start Last Admin Trade Name Freq PRN Reason Stop Dose Admin Droperidol 1.25 mg 05/13/24 16:09 05/13/24 16:19 Droperidol 5 Mg/2 Ml Vial IVPUSH 05/13/24 16:10 1.25 mg ONCE ONE Administration Sodium Chloride 1,000 mls @ 999 mls/hr 05/13/24 16:09 05/13/24 18:20 Ns IV 05/13/24 17:09 Infused .Q1H1M STA Infusion Ketorolac Tromethamine 15 mg 05/13/24 16:05/13/24 16:18 Ketorolac Tromethamine 15 Mg/Ml Vial IVPUSH 05/13/24 16:10 15 mg ONCE STA Administration Lorazepam 1 mg 05/13/24 16:05/13/24 16:18 Lorazepam 2 Mg/Ml Vial IVPUSH 05/13/24 16:10 1 mg STAT STA Administration Lorazepam 1 mg 05/13/24 17:19 05/13/24 17:25 Lorazepam 2 Mg/Ml Vial IVPUSH 05/13/24 17:20 1 mg STAT STA Administration Ondansetron HCl 4 mg 05/13/24 18:05 05/13/24 18:26 Ondansetron Hcl 4 Mg/2 Ml Vial IVPUSH 05/13/24 18:06 4 mg ONCE ONE Administration Discharge Plan Discharge Clinical Impression: Cannabis hyperemesis syndrome concurrent with and due to cannabis dependence Abdominal pain Qualifiers: Abdominal location: generalized Qualified Code(s): R10.84 - Generalized abdominal pain Patient Disposition: Home, Self-Care Instructions: Cyclic Vomiting Syndrome (ED) Additional Instructions: Your blood work was unremarkable and was consistent with your vomiting. Your abdominal pain is most likely caused by increased acid and inflammation of your stomach-continue to take your pantoprazole as prescribed by your provider. Your persistent nausea and inflammation is most likely caused by your marijuana use. ?Smoking marijuana multiple times a day can lead to cannabis (marijuana) hyperemesis syndrome which is a form of cyclic vomiting syndrome. Smoking marijuana daily changes your brain chemistries and makes you have nausea, vomiting abdominal pain. The treatment is to stop smoking marijuana completed for 6 months and your symptoms will improve. Follow-up with your doctor in 2 days. Please return to the emergency department if your symptoms get worse or if you develop any symptoms that are concerning to you. Prescriptions: New ondansetron 4 mg tablet,disintegrating 4 mg PO Q6-8H PRN (Reason: nausea and vomiting) Qty: 14 0RF No Action simvastatin 20 mg tablet 20 mg PO DAILY Qty: 90 0RF ondansetron 8 mg tablet,disintegrating 8 mg PO Q8H Qty: 90 0RF metoclopramide HCl [Reglan] 10 mg tablet 10 mg PO Q6H PRN (Reason: nausea and vomiting) Qty: 90 0RF gabapentin 300 mg capsule 300 mg PO DAILY ProAir RespiClick 90 mcg/actuation aerosol powdr breath activated 2 inh INHALATION Q4-6H PRN (Reason: wheezing) gabapentin 600 mg tablet 600 mg PO BEDTIME lamotrigine 100 mg tablet 100 mg PO DAILY penicillin V potassium 500 mg tablet 500 mg PO TID 10 Days Qty: 30 0RF pantoprazole 40 mg tablet,delayed release (DR/EC) 40 mg PO DAILY Qty: 90 2RF Rx Instructions: take one tablet half an hour before breakfast Stand Alone Forms: Work/School Release Interventions: ED Discharge Assessment Last Done: 05/13/24 18:33 Discharge Date/Time: 05/13/24 18:35 Print Language: French
[2024-05-13] MEDS: ondansetron HCL 4 MG/2 ML VIAL IVPUSH (18:26)
[2024-05-13 18:33] VITALS: BP 110/57; PULSE 87; RESP 18; TEMP 36.7; O2SAT 98
== END 2024-05-13 18:35 | disposition home or self-care (01) ==
PROVIDERS: Emergency Provider Emergency Medicine Emergency Medical Services; PCP Internal Medicine
DX: R11.15 Cyclical vomiting syndrome unrelated to migraine (principal); F12.20 Cannabis dependence, uncomplicated; R10.84 Generalized abdominal pain; E78.5 Hyperlipidemia, unspecified; J45.909 Unspecified asthma, uncomplicated; Z79.02 Long term (current) use of antithrombotics/antiplatelets; Z79.899 Other long term (current) drug therapy
CPT/HCPCS: 36415; 80053; 80307; 81001; 83690; 83735; 84702; 85025; 96361; 96374; 96375; 96376; 99285; J1790; J1885; J2060; J2405

== ENCOUNTER 2024-05-17 10:36 | Emergency (ER) | payer OTHER, SELFPAY ==
[2024-05-17 10:59] VITALS: BP 148/82; PULSE 78; RESP 18; TEMP 36.3; O2SAT 96; BMI 29.9
--- NOTE | 2024-05-17 10:59 | ED.GENADULT ---
HPI - General Adult General Chief complaint: Nausea/Vomiting/Diarrhea Stated complaint: vomiting-strep throat Time Seen by Provider: 05/17/24 12:31 History of Present Illness ED Provider: Kalyan HPI narrative: 49 y/o F patient; PMH cannabanoid hyperemesis syndrome, bipolar disorder, asthma; presents from home reporting significant nausea/vomiting. Patient is primarily concerned as she was prescribed antibiotic for strep through on 05/09/2024 and has been unable to keep it down. She reports associated stomach cramping/burning pain. She otherwise denies: fever or chills, chest pain, SOB, cough/congestion. Related Data Home Medications ?Medication ?Instructions ?Recorded ?Confirmed gabapentin 600 mg tablet 600 mg PO BEDTIME 02/26/21 03/21/24 lamotrigine 100 mg tablet 100 mg PO DAILY 09/07/23 03/21/24 albuterol sulfate 90 mcg/actuation 2 inh inhalation Q4-6H PRN wheezing 03/21/24 03/21/24 breath activated powder inhaler (ProAir RespiClick) gabapentin 300 mg capsule 300 mg PO DAILY 03/21/24 03/21/24 Previous Rx's ?Medication ?Instructions ?Recorded pantoprazole 40 mg tablet,delayed 40 mg PO DAILY #90 tabs 11/29/23 release simvastatin 20 mg tablet 20 mg PO DAILY High cholesterol 03/06/24 #90 tabs penicillin V potassium 500 mg 500 mg PO TID 10 days #30 tabs 05/09/24 tablet metoclopramide HCl 10 mg tablet 10 mg PO Q6H PRN nausea and 05/13/24 (Reglan) vomiting #90 tabs ondansetron 4 mg disintegrating 4 mg PO Q6-8H PRN nausea and 05/13/24 tablet vomiting #14 tabs ondansetron 8 mg disintegrating 8 mg PO Q8H #90 tabs 05/13/24 tablet Allergies Allergy/AdvReac Type Severity Reaction Status Date / Time divalproex sodium [Depakote] Allergy Intermediate anger Verified 05/17/24 11:01 Review of Systems Review of Systems: Yes all other systems are reviewed and are negative Neurologic: Denies Sensory deficit (Neuro) PMFSH Past Medical History Attestation statement: The following information was validated with the patient. Source: old records reviewed Medical History Marijuana smoker Asthma Anxiety History of OCD (obsessive compulsive disorder) Bipolar disorder PONV (postoperative nausea and vomiting) Constipation GERD (gastroesophageal reflux disease) Smoker Chronic bronchitis Cough Surgical History Hx of tubal ligation Family History Family History Other Mental health disorder Social History Social History Housing: Apartment Are you a primary outdoor emergency care technician to a significant other at home: No Do you presently have visiting nurse or other home services: No Alcohol intake: unknown Patient Tobacco Use Status: Current everyday Tobacco user Tobacco use type: Cigarette Cigarettes Per Day: 10 e-Cigarette/Vaping Use: Never Used Substance Use Type: Marijuana Advance Directives: No Advance Directives Information Provided: No Current occupational status: unemployed Cognitive needs: No Hearing needs: No Vision needs: Yes Physical Exam ED Vital Signs: Vital Signs - 24 hr 05/17/24 10:59 Temperature 97.3 F Pulse Rate 78 Respiratory Rate 18 Blood Pressure 148/82 H Pulse Oximetry 96 Oxygen Delivery Method Room Air BMI result Body Mass Index 29.9 Patient is afebrile and hemodynamically stable. Const General: cooperative Orientation/consciousness: patient oriented x3 HENMT Head: Yes normal to inspection and Yes atraumatic Eyes General: appearance normal, both eyes and all related structures Pupils: Equal, round and reactive pupils present EOM: EOMs intact bilaterally Neck Neck: Yes normal visual inspection, Yes full ROM, Yes supple and No tender Chest Chest palpation & inspection: normal inspection of the chest and normal palpation of entire chest wall Resp Effort & Inspection: normal respiratory effort, able to speak in complete sentences, no cough and no respiratory distress Auscultation: clear to auscultation bilaterally Cardio Rate: regular rate Rhythm: regular rhythm Peripheral pulses: Peripheral pulses 2+ throughout GI Other: Diffuse mild abdominal discomfort Inspection: No Abdominal wall edema and No distended Palpation (GI): Soft to palpation, not firm, no guarding and not rigid Auscultation: normal bowel sounds Back/Spine/Pelvis Back: No back tenderness Neuro General: patient oriented x3 Cranial nerves: Yes Equal, round and reactive pupils present Motor exam (neuro): 5/5 motor strength present throughout Sensory Exam: No Sensory deficit (Neuro) Course Course Course Narrative: This is a rapid medical exam performed by Dagmar Domingo NP: Additional HPI, ROS, PE not included below will be deferred to primary provider. Patient is a 49-year-old female with cannabinoid hyperemesis syndrome presenting to the ED stating that she was diagnosed with strep on 05/09. Since Wednesday she has had nausea and vomiting and has not been able to keep down any of her medications including her antibiotics. Went to urgent care and was referred here. Plan: labs Reevaluation(s) Reevaluation #1: Patient is afebrile and hemodynamically stable. Reviewed triage work up. Mild leukocytosis 15.5 - non-specific in setting of known strep and recent significant nausea/vomiting. Remainder of labs unremarkable. Providing IVF, IV Reglan, and IM Haldol for symptom management. Will provide one time dose of PCN IM to cover for strep infection. Patient now able to tolerate PO without difficulty. She requested ibuprofen for a mild headache. Plan: Discharge to home with PCP follow up Return precautions given Medications Administered Discontinued Medications Generic Name Dose Route Start Last Admin Trade Name Freq PRN Reason Stop Dose Admin Haloperidol Lactate 5 mg 05/17/24 12:36 05/17/24 14:07 Haloperidol Lactate 5 Mg/Ml Vial IM 05/17/24 12:37 5 mg ONCE ONE Administration Sodium Chloride 1,000 mls @ 999 mls/hr 05/17/24 12:45 05/17/24 15:51 Ns IV 05/17/24 13:45 Infused .Q1H1M GREGG Infusion Ibuprofen 400 mg 05/17/24 14:27 05/17/24 14:32 Ibuprofen 400 Mg Tablet PO 05/17/24 14:28 400 mg ONCE ONE Administration Metoclopramide HCl 10 mg 05/17/24 12:38 05/17/24 14:07 Metoclopramide Hcl 10 Mg/2 Ml Vial IVPUSH 05/17/24 12:39 10 mg ONCE ONE Administration Penicillin G Benzathine 1,200,000 unit 05/17/24 12:42 05/17/24 14:08 Penicillin G Benzathine 1,200,000 Unit/2 Ml Syringe IM 05/17/24 12:43 1,200,000 unit ONCE ONE Administration Medical Decision Making Lab Data 05/17/24 11:12 05/17/24 11:12 Labs: Lab Results 05/17/24 Range/Units 11:12 WBC 15.5 H (4.8-10.8) X10*3/uL RBC 4.63 (4.20-5.50) X10*6/uL Hgb 14.9 (12.0-16.0) g/dl Hct 43.3 (37.0-47.0) % MCV 93.5 (80.0-98.0) fL MCH 32.2 (27.0-33.0) pg MCHC 34.4 (31.0-35.0) g/dl RDW 12.7 (11.0-16.0) % Plt Count 324 (160-400) X10*3/uL MPV 9.8 (9.4-12.3) fL Immature Gran % (Auto) 0.3 (0.0-0.4) % Neut % (Auto) 83.6 H (45-73) % Lymph % (Auto) 10.4 L (20-40) % [place] % (Auto) 4.6 (2-11) % Eos % (Auto) 0.5 (0-4) % Baso % (Auto) 0.6 (0-2) % Lymph # (Auto) 1.6 (1.2-4.9) X10*3/uL [place] # (Auto) 0.7 (0.1-1.2) X10*3/uL Eos # (Auto) 0.1 (0.0-0.4) X10*3/uL Baso # (Auto) 0.1 (0.0-0.2) X10*3/uL Abs Immat Gran (auto) 0.05 H (0.00-0.03) X10*3/uL Absolute Neuts (auto) 13.0 H (2.0-8.3) x10*3/uL Absolute Nucleated RBC 0.000 (0.0-0.012) X10*3/uL Nucleated RBC % (auto) 0.0 (0.0-0.2) /100WBC Sodium 141 (135-145) mmol/L Potassium 3.4 (3.3-5.1) mmol/L Chloride 105 (96-108) mmol/L Carbon Dioxide 25 (22-29) mmol/L Anion Gap 14 (12-20) BUN 12 (9-16) mg/dL Creatinine 0.94 (0.5-1.4) mg/dL Estim Creat Clear Calc 80.8 Estimated GFR > 60 Random Glucose 99 (60-115) mg/dL Calcium 9.5 D (8.4-10.2) mg/dL Magnesium 2.1 (1.6-2.6) mg/dL Total Bilirubin 0.7 (0.0-1.0) mg/dL AST 20 (5-31) U/L ALT 17 (0-31) U/L Alkaline Phosphatase 65 (39-117) U/L Total Protein 8.2 H (6.5-8.0) g/dL Albumin 4.8 (3.5-5.0) g/dL Amylase 82 (28-100) U/L Lipase 18 (8-78) U/L Beta HCG, Quant < 2 mIU/mL Discharge Plan Discharge Clinical Impression: Vomiting Patient Disposition: Home, Self-Care Instructions: Acute Nausea and Vomiting (ED) Additional Instructions: As we discussed, you were seen for nausea and vomiting. You received IVF and nausea medications (Reglan and Haldol). You also received a shot of an antibiotic for your strep throat - you can now stop taking your home antibiotic. Please follow up with your PCP within the next 1 - 2 days to discuss your recent emergency department visit. Return to the emergency department for: Fever Abdominal pain Inability to sip water Prescriptions: No Action simvastatin 20 mg tablet 20 mg PO DAILY Qty: 90 0RF ondansetron 8 mg tablet,disintegrating 8 mg PO Q8H Qty: 90 0RF metoclopramide HCl [Reglan] 10 mg tablet 10 mg PO Q6H PRN (Reason: nausea and vomiting) Qty: 90 0RF gabapentin 300 mg capsule 300 mg PO DAILY ProAir RespiClick 90 mcg/actuation aerosol powdr breath activated 2 inh INHALATION Q4-6H PRN (Reason: wheezing) ondansetron 4 mg tablet,disintegrating 4 mg PO Q6-8H PRN (Reason: nausea and vomiting) Qty: 14 0RF gabapentin 600 mg tablet 600 mg PO BEDTIME lamotrigine 100 mg tablet 100 mg PO DAILY penicillin V potassium 500 mg tablet 500 mg PO TID 10 Days Qty: 30 0RF pantoprazole 40 mg tablet,delayed release (DR/EC) 40 mg PO DAILY Qty: 90 2RF Rx Instructions: take one tablet half an hour before breakfast Print Language: Hungarian
[2024-05-17 11:16] LABS: MANUAL DIFF FLAG NO
[2024-05-17 11:20] LABS: Basophils Absolute Auto 0.1 X10*3/uL (0.0-0.2); Basophils Percent Auto 0.6 % (0-2); Eosinophils Absolute Auto 0.1 X10*3/uL (0.0-0.4); Eosinophils Percent Auto 0.5 % (0-4); Hematocrit 43.3 % (37.0-47.0); Hemoglobin 14.9 g/dl (12.0-16.0); Imm Gran Abs Auto 0.05 X10*3/uL (0.00-0.03); Imm Gran Pct Auto 0.3 % (0.0-0.4); Lymphocytes Absolute Auto 1.6 X10*3/uL (1.2-4.9); Lymphocytes Percent Auto 10.4 % (20-40); Mean Corpuscular HGB Conc 34.4 g/dl (31.0-35.0); Mean Corpuscular Hemoglobin 32.2 pg (27.0-33.0); Mean Corpuscular Volume 93.5 fL (80.0-98.0); Mean Platelet Volume 9.8 fL (9.4-12.3); Monocytes Absolute Auto 0.7 X10*3/uL (0.1-1.2); Monocytes Percent Auto 4.6 % (2-11); Neutrophils Percent Auto 83.6 % (45-73); Platelet Count 324 X10*3/uL (160-400); Red Blood Count 4.63 X10*6/uL (4.20-5.50); Red Cell Distribution Width 12.7 % (11.0-16.0); White Blood Count 15.5 X10*3/uL (4.8-10.8)
[2024-05-17 11:50] LABS: Alanine Aminotransferase 17 U/L (0-31); Albumin Level 4.8 g/dL (3.5-5.0); Alkaline Phosphatase 65 U/L (39-117); Amylase 82 U/L (28-100); Anion Gap 14 (12-20); Aspartate Amino Transferase 20 U/L (5-31); Bilirubin Total 0.7 mg/dL (0.0-1.0); Blood Urea Nitrogen 12 mg/dL (9-16); Calcium 9.5 mg/dL (8.4-10.2); Carbon Dioxide 25 mmol/L (22-29); Chloride 105 mmol/L (96-108); Creatinine Clr Calc Pharmacy 80.8; Estimated Glomerular Filt Rate > 60; Glucose Random 99 mg/dL (60-115); HCG Quantitative < 2 mIU/mL; Lipase 18 U/L (8-78); Magnesium 2.1 mg/dL (1.6-2.6); Potassium 3.4 mmol/L (3.3-5.1); Sodium 141 mmol/L (135-145); Total Protein 8.2 g/dL (6.5-8.0)
[2024-05-17] MEDS: Metoclopramide HCl 10 MG/2 ML VIAL IVPUSH (14:07)
[2024-05-17] MEDS: Haloperidol Lactate 5 MG/ML VIAL IM (14:07)
[2024-05-17] MEDS: Penicillin G Benzathine 1,200,000 UNIT/2 ML SYRINGE 1200000 UNIT IM (14:08)
[2024-05-17] MEDS: 0.9 % Sodium Chloride 1,000 ML 999 ML IV (14:09)
[2024-05-17] MEDS: Ibuprofen 400 MG TABLET PO (14:32)
[2024-05-17 16:49] VITALS: BP 148/82; PULSE 78; RESP 18; TEMP 36.3; O2SAT 96
== END 2024-05-17 16:50 | disposition home or self-care (01) ==
PROVIDERS: Registered Nurse Emergency; Emergency Provider Emergency Medicine; PCP Internal Medicine
DX: R11.2 Nausea with vomiting, unspecified (principal); R10.2 Pelvic and perineal pain; R25.2 Cramp and spasm; F17.210 Nicotine dependence, cigarettes, uncomplicated; Z79.899 Other long term (current) drug therapy
CPT/HCPCS: 36415; 80053; 82150; 83690; 83735; 84702; 85025; 96361; 96372; 96374; 99283; 99284; J0561; J1630; J2765

== ENCOUNTER 2024-05-25 09:29 | Outpatient (AMB) | payer OTHER, SELFPAY ==
--- NOTE | 2024-05-25 09:30 | MHC.PC.OV ---
Intake Visit Reasons: Follow Up sick visit~ [phone] Allergies divalproex sodium [Depakote] Allergy (Intermediate, Verified 05/25/24 09:30) anger Medication List - Last Reconciled 05/25/24 by Shonda Caldwell MD albuterol sulfate 90 mcg/actuation (ProAir RespiClick) 2 inhalations inhalation Q4-6H PRN gabapentin 300 mg PO DAILY gabapentin 600 mg PO BEDTIME lamotrigine 100 mg PO DAILY metoclopramide HCl (Reglan) 10 mg PO Q6H PRN ondansetron 4 mg PO Q6-8H PRN ondansetron 8 mg PO Q8H pantoprazole 40 mg PO DAILY penicillin V potassium 500 mg PO TID 10 days simvastatin 20 mg PO DAILY sucralfate (Carafate) 1 g PO BID 15 days Tobacco use date assessed: 05/25/24 Dental Screening Dental Screen Date: 05/25/24 Did you have a dental visit in the last 12 months?: Yes Did you have a dental problem in the last 6 months where you did not have access to dental care?: No Was dental information given to patient?: Patient has dentist HPI Follow Up sick visit~ [phone] HPI Details Patient was diagnosed with acute strep infection on 05/09 in walk in clinic 2 days later she started vomiting and couldnt stop went to ER 06/12 , was treated and dicharged with medication but continue to vomit , had to go back to ER on 06/16 was diagnosed with cannabis hyperemesis syndrome she was given Haldol in Er along with Reglan , felt better and was sent home at home she continue to vomit , tell me today was the first day she only vomit once in am her vomiting are usually in am she is eating light diet, we talked about the blend diet, she is to avoid any process food until completly better she has not gone back to work for over 2 weeks and is concerned if she will be able to go back on Wednesday paper work will need to be filled for the days she was sick she has enough meds for vomiting at this time has developed cramping of abdominal muscles from all that vomiting [facility] Medical History Marijuana smoker Asthma Anxiety History of OCD (obsessive compulsive disorder) Bipolar disorder PONV (postoperative nausea and vomiting) Constipation GERD (gastroesophageal reflux disease) Smoker Chronic bronchitis Cough Surgical History Hx of tubal ligation Family History Other Mental health disorder Social History Housing: Apartment Are you a primary healthcare analyst to a significant other at home: No Do you presently have visiting nurse or other home services: No Alcohol intake: unknown Patient Tobacco Use Status: Current everyday Tobacco user Tobacco use type: Cigarette Cigarettes Per Day: 10 e-Cigarette/Vaping Use: Never Used Substance Use Type: Marijuana Current occupational status: unemployed Cognitive needs: No Hearing needs: No Vision needs: Yes Questionnaire Thrive Questionnaire Date Thrive assessed: 05/14/24 AUDIT C Alcohol Use Questionnaire (AUDIT-C) 1. How often do you have a drink containing alcohol?: Never 3. How often do you have six or more drinks on one occasion?: Never Total Score: 0 Score Reviewed/Action Taken: Yes ADDIE-7 AMB Questionnaire ADDIE-7 Date ADDIE - 7 assessed: 09/07/23 Source: Developed by Drs. Ulises Thakur, Lia Banerjee, Sulaiman Berg and colleagues, with an educational javon from [employer]. Review of Systems Const Denies chills and Denies fever(s) ENT Denies epistaxis and Denies nasal discharge Card Denies chest pain Resp Denies chest congestion, Denies cough and Denies hemoptysis GI Denies diarrhea Neuro Reports no additional complaints Psych Reports no additional complaints Endo Reports no additional complaints Physical exam (Primary Care) Tobacco/Smoking Status: Tobacco use Status Tobacco use date assessed 05/25/24 05/25/24 09:31 Patient Tobacco Use Status Current everyday Tobacco 05/25/24 09:31 Tobacco use type Cigarette 05/25/24 09:31 e-Cigarette/Vaping Use Never Used 05/25/24 09:31 Thrive Assessment: Date of Thrive Assessment Date Thrive assessed 05/14/24 05/25/24 09:31 Telehealth Telehealth Telehealth Platform: [facility] Location of provider rendering services: practice address Location of patient: address on file Patient Identification confirmed using: Name, : Yes Telehealth method: video Patient verbally consented to treatment: Yes Patient verbally consented to billing insurance company: Yes Patient informed of any privacy concerns related to visit: Yes Assessment and Plan Assessment & Plan (1) Cannabis hyperemesis syndrome concurrent with and due to cannabis dependence: Code(s): F12.288 - Cannabis dependence with other cannabis-induced disorder Plan Patient was diagnosed with acute strep infection on 05/09 in walk in clinic 2 days later she started vomiting and couldnt stop went to ER 06/12 , was treated and dicharged with medication but continue to vomit , had to go back to ER on 06/16 was diagnosed with cannabis hyperemesis syndrome she was given Haldol in Er along with Reglan , felt better and was sent home at home she continue to vomit , tell me today was the first day she only vomit once in am her vomiting are usually in am she is eating light diet, we talked about the blend diet, she is to avoid any process food until completly better she has not gone back to work for over 2 weeks and is concerned if she will be able to go back on Wednesday paper work will need to be filled for the days she was sick she has enough meds for vomiting at this time has developed cramping of abdominal muscles from all that vomiting using capcicum cream locally, which is helping she has stopped the use to cannabis since feelings sick 30 min spent in care of this patient, including reviewing all the notes in chart and face to face with patient charting Coding Level of Care Code Tele Est Pt Level 4 (02475) Diagnoses Cannabis hyperemesis syndrome concurrent with and due to cannabis dependence F12.288
== END 2024-05-25 13:11 | disposition home or self-care (01) ==
LOC: HO.HMCC 09:30
PROVIDERS: PCP Internal Medicine; Visit Provider Internal Medicine
DX: F12.288 Cannabis dependence with other cannabis-induced disorder (principal)

== ENCOUNTER → 2024-05-25 09:29 | Outpatient (BNVA) | payer OTHER, SELFPAY | PROVIDERS: PCP Internal Medicine; Visit Provider Internal Medicine | DX: F12.288 Cannabis dependence with other cannabis-induced disorder (principal) ==

== ENCOUNTER → 2024-10-06 07:55 | Outpatient (BNVA) | payer OTHER, SELFPAY | PROVIDERS: PCP Internal Medicine; Visit Provider Internal Medicine | DX: J45.41 Moderate persistent asthma with (acute) exacerbation (principal); J06.9 Acute upper respiratory infection, unspecified; E78.9 Disorder of lipoprotein metabolism, unspecified; F31.78 Bipolar disorder, in full remission, most recent episode mixed; F17.210 Nicotine dependence, cigarettes, uncomplicated; Z79.899 Other long term (current) drug therapy | CPT/HCPCS: 96127 ==

== ENCOUNTER 2024-10-31 11:47 | Outpatient (AMB) | payer OTHER, SELFPAY ==
--- NOTE | 2024-10-31 12:41 | MHC.OFFWIV ---
Intake Vital Signs 10/31/24 12:48 Weight 180 lb BP 110/78 Blood Pressure Location Rt brachial Position Sitting Pulse 70 Pulse Source Pulse Oximeter Temp 98.2 F Temp Source Oral Pulse Oximetry (%) 97 Oxygen Delivery Method Room Air Intake Visit Reasons: EP+flu A, cough, nausea, diarrhea ([phone]) Intake Note: Patient here for cough, runny nose, congestion, nausea, loss of appetite and diarrhea from meds. Patient Tobacco Use Status: Current everyday Tobacco user Allergies divalproex sodium [Depakote] Allergy (Intermediate, Verified 10/31/24 12:42) anger Do you need a note to return to daycare/school/sports/work: Yes HPI HPI Comments History of Present Illness Details This is a 49-year-old female with a past medical history of bipolar disorder, gastroesophageal reflux disease and hyperlipidemia presenting for evaluation of cough, chills and diarrhea that she has had since testing positive for influenza on Wednesday. Patient has been using Vicks cough syrup and Robitussin DM which she feels is related to her diarrhea. Patient denies having any chest pain , abdominal pain or shortness for breath. She states that her cough is worse at night and she is having several episodes of diarrhea daily. [facility] Medical History Marijuana smoker Asthma Anxiety History of OCD (obsessive compulsive disorder) Bipolar disorder PONV (postoperative nausea and vomiting) Constipation GERD (gastroesophageal reflux disease) Smoker Chronic bronchitis Cough Surgical History Hx of tubal ligation Family History Other Mental health disorder Social History Housing: Apartment Are you a primary resident care assistant to a significant other at home: No Do you presently have visiting nurse or other home services: No Alcohol intake: unknown Patient Tobacco Use Status: Current everyday Tobacco user Tobacco use type: Cigarette Cigarettes Per Day: 10 e-Cigarette/Vaping Use: Never Used Substance Use Type: Marijuana Current occupational status: unemployed Cognitive needs: No Hearing needs: No Vision needs: Yes Review of Systems Const All systems reviewed & are unremarkable except as noted in HPI and below Reports chills, Reports fatigue, Reports fever(s) and Reports malaise Eyes Reports no additional complaints ENT Reports no additional complaints, Denies otalgia, Denies sinus pain, Denies sinus pressure and Denies sore throat Card Reports no additional complaints and Denies dyspnea Resp Reports cough and Denies dyspnea GI Reports no additional complaints, Reports diarrhea, Denies nausea and Denies vomiting Musc Reports no additional complaints and Reports myalgias Skin/Breast Reports system reviewed and no additional complaints, except as documented Neuro Reports no additional complaints Psych Reports no additional complaints Endo Reports no additional complaints and Reports fatigue Darryl/Lymph Reports no additional complaints Aller/Immun Reports no additional complaints Physical Exam Vital Signs: Last Vital Signs Temp 98.2 F 10/31/24 12:48 Pulse 70 10/31/24 12:48 BP 110/78 10/31/24 12:48 Pulse Ox 97 10/31/24 12:48 Oxygen Delivery Method Room Air 10/31/24 12:48 Patient is afebrile. Const General: cooperative, comfortable, no acute distress, well developed, alert and awake; No acute distress or anxious Nutritional Appearance: well nourished Orientation/consciousness: patient oriented x3 Limitations: no limitations HEENT Head: Yes normal to inspection and Yes normocephalic Ears: hearing grossly normal bilaterally, external ears normal, TM's normal bilaterally, EAC's normal and other (TMs bulging without erythema or fluid level noted.) Face and sinus: Yes normal facial exam and Yes sinuses nontender Mouth: Normal oral and palatal mucosa present and oropharynx normal Throat: Yes posterior oropharynx normal and No postnasal drainage Eyes General: appearance normal, both eyes and all related structures Resp Effort & Inspection: normal respiratory effort, able to speak in complete sentences, no audible wheezes, Actively coughing, no nasal flaring and not tachypneic Auscultation: clear to auscultation bilaterally Cardio Rate: regular rate Rhythm: regular rhythm GI Palpation (GI): Soft to palpation, nontender, no guarding and not rigid Auscultation: normal bowel sounds Skin General skin exam: no rashes or lesions noted Neuro General: patient oriented x3 Psych Appearance: grossly normal Mental Status: mental status grossly normal Insight: Good insight present (Psych) Judgement: Good judgement present (Psych) Assessment & Plan Assessment & Plan (1) Respiratory illness: Comment: Respiratory viral testing is deferred as the patient tested positive for influenza a last Wednesday. Patient is afebrile and in no acute distress. Code(s): J98.9 - Respiratory disorder, unspecified Plan: Mucinex OTC with increase clear fluids daily, hot tea with honey, Tylenol and ibuprofen as needed. (2) Diarrhea: Comment: Abdomen is soft and nontender. Patient denies any dysuria or urinary frequency. Code(s): R19.7 - Diarrhea, unspecified Qualifiers: Diarrhea type: unspecified type Qualified Code(s): R19.7 - Diarrhea, unspecified Plan: Imodium OTC, increase clear fluids daily. Coding Level of Care Code Est Pt Level 3 (34926) Diagnoses Respiratory illness J98.9 Diarrhea, unspecified type R19.7 Diarrhea type: unspecified type Time Spent (min) 20
[2024-10-31 12:48] VITALS: BP 110/78; PULSE 70; TEMP 36.8; O2SAT 97
== END 2024-10-31 13:01 | disposition home or self-care (01) ==
PROVIDERS: PCP Internal Medicine; Visit Provider Physician Assistant
DX: J98.9 Respiratory disorder, unspecified (principal); R19.7 Diarrhea, unspecified

== ENCOUNTER 2024-11-03 08:20 | Outpatient (REF) | payer OTHER, SELFPAY ==
--- NOTE | ~2024-11-03 | XR_ITS ---
EXAMINATION: XR CHEST CLINICAL INFORMATION: R05.9 - Cough, unspecified COMPARISON: None available. TECHNIQUE: 2 views of the chest were obtained. FINDINGS: No significant abnormality is noted involving the heart, lungs, mediastinum, bony thorax or soft tissues. XR/XR chest 2V IMPRESSION: Unremarkable chest examination. Electronically signed by: Jim Ochoa MD 11/03/2024 09:38 AM [facility]
== END 2024-11-03 08:21 | disposition home or self-care (01) ==
LOC: HO.HMGCX 08:20
PROVIDERS: PCP Internal Medicine; Visit Provider Physician Assistant
DX: B34.9 Viral infection, unspecified (principal); R05.9 Cough, unspecified
CPT/HCPCS: 71046; 87880

== ENCOUNTER 2024-11-03 08:20 | Outpatient (AMB) | payer OTHER, SELFPAY ==
--- NOTE | 2024-11-03 08:44 | MHC.OFFWIV ---
Intake Vital Signs 11/03/24 08:45 Height 5 ft 6 in Weight 175 lb BMI 28.2 BP 120/78 Blood Pressure Location Lt brachial Position Sitting Pulse 81 Pulse Source Pulse Oximeter Temp 98.2 F Temp Source Oral Pulse Oximetry (%) 97 Intake Visit Reasons: EP coughing, sore throat, hoarseness Patient Tobacco Use Status: Current everyday Tobacco user Allergies divalproex sodium [Depakote] Allergy (Intermediate, Verified 11/03/24 08:45) anger Do you need a note to return to daycare/school/sports/work: Yes HPI HPI Comments History of Present Illness Details History - The patient is a 49-year-old female presenting with persistent cough and loss of voice. - She has had a productive cough for several days, with the onset around a Wednesday last week, that provokes gagging. - The loss of voice appears to be consistent with viral laryngitis, occurring concurrent with a home test diagnosis of a viral infection approximately one week prior. - She describes this illness episode as severe, impacting sleep and daily living significantly, including necessitating reduced cohabitation with her spouse due to coughing at night. - She typically smokes a pack a day but has reduced to 4-5 cigarettes a day due to illness, stress contributes to her smoking behavior. - The patient denies any recent migraine, asthma, and states doc told her she had COPD - increased sinus pressure at the onset of the illness that has since resolved. - Current management includes nasal spray use and efforts to suppress the cough, given the history of nasal congestion. Physical Exam General: Cooperative, healthy appearing, comfortable and no acute distress Orientation/consciousness: Patient oriented x3 Limitations: No limitations Head: Normal to inspection Ears: Hearing grossly normal bilaterally, external ears normal and TM's normal bilaterally Nose: Normal external nose present, Normal nares present and No nasal discharge present Face and sinus: Normal facial exam and Yes sinuses nontender Mouth: Normal oral and palatal mucosa present and moist mucous membranes Throat: Yes tonsils normal, Yes uvula midline. Posterior oropharynx erythema Eyes: Appearance normal, both eyes and all related structures Neck: Normal visual inspection Respiratory: Clear but slightly dim to auscultation bilaterally. Normal respiratory effort, able to speak in complete sentences, Actively coughing, no respiratory distress, not tachypneic, no tripod positioning and no use of accessory muscles. Cardiovascular: Regular rate and rhythm. Normal S1 and S2 Skin: No rashes or lesions noted Neuro: Patient oriented x3 Extremities: Normal to inspection and Yes no clubbing, cyanosis or edema PFSH Medical History Marijuana smoker Asthma Anxiety History of OCD (obsessive compulsive disorder) Bipolar disorder PONV (postoperative nausea and vomiting) Constipation GERD (gastroesophageal reflux disease) Smoker Chronic bronchitis Cough Surgical History Hx of tubal ligation Family History Other Mental health disorder Social History Housing: Apartment Are you a primary home health aide caregiver to a significant other at home: No Do you presently have visiting nurse or other home services: No Alcohol intake: unknown Patient Tobacco Use Status: Current everyday Tobacco user Tobacco use type: Cigarette Cigarettes Per Day: 10 e-Cigarette/Vaping Use: Never Used Substance Use Type: Marijuana Current occupational status: unemployed Cognitive needs: No Hearing needs: No Vision needs: Yes Review of Systems Const All systems reviewed & are unremarkable except as noted in HPI and below Physical Exam Vital Signs: Last Vital Signs Temp 98.2 F 11/03/24 08:45 Pulse 81 11/03/24 08:45 BP 120/78 11/03/24 08:45 Pulse Ox 97 11/03/24 08:45 BMI result Body Mass Index 28.2 Results AMB Rapid Strep AMB Rapid Strep Negative Last Edit by Ramirez Ricketts CMA on 11/03/24 09:02 Results Reviewed Results Reviewed: Laboratory Last Values Strep Scn Rapid Clinic Negative 11/03/24 09:02 Assessment & Plan Assessment & Plan (1) Acute viral syndrome: Code(s): B34.9 - Viral infection, unspecified Plan: Rapid strep is negative, VSS, pt well appearing and PE remarkable for dim lung sounds. Home test positive for flu with secondary laryngitis is addressed by pursuing further diagnostics with a chest x-ray to rule out pneumonia. The patient is prescribed Tessalon Perles for controlling the nocturnal cough and enhancing rest. Given the identified flu, she should maintain social isolation until symptom-free for 24 hours to prevent spreading the infection. Encouragement to maintain smoking reduction is advised as part of recovery and respiratory management. Contingent on the chest x-ray findings, antibiotics may be indicated. A work absence note was provided due to illness. Further follow-up will depend on diagnostic results and symptom progression. Patient was informed and verbally consented to the use of an ambient scribe for clinic note documentation during this visit Orders: Orders AMB Rapid Strep Screen Today Z13.9 - Encounter for screening, unspecified XR chest 2V Today R05.9 - Cough, unspecified Medications: New benzonatate 200 mg PO BEDTIME PRN 10 caps 0RF cough Coding Level of Care Code Est Pt Level 4 (40035) Diagnoses Acute viral syndrome B34.9
[2024-11-03 08:45] VITALS: BP 120/78; PULSE 81; TEMP 36.8; O2SAT 97; BMI 28.2
== END 2024-11-03 09:33 | disposition home or self-care (01) ==
PROVIDERS: PCP Internal Medicine; Visit Provider Physician Assistant
DX: Z13.9 Encounter for screening, unspecified (principal); B34.9 Viral infection, unspecified

== ENCOUNTER → 2024-11-03 09:23 | Outpatient (BNV) | payer OTHER, SELFPAY | PROVIDERS: PCP Internal Medicine; Visit Provider Radiology Diagnostic Radiology | DX: R05.9 Cough, unspecified (principal) | CPT/HCPCS: 71046 ==

== ENCOUNTER 2025-04-27 09:48 | Outpatient (AMB) | payer OTHER, SELFPAY ==
--- NOTE | 2025-04-27 09:51 | MHC.PC.OV ---
Vital Signs 04/27/25 09:55 Height 5 ft 6 in Weight 165 lb BMI 26.6 BP 102/70 Blood Pressure Location Rt brachial Position Sitting Respiration 18 Pulse 85 Pulse Source Pulse Oximeter Temp 98.1 F Temp Source Oral Pulse Oximetry (%) 97 Oxygen Delivery Method Room Air Intake Visit Reasons: mesopause Allergies divalproex sodium (Depakote) Allergy (Intermediate, Verified 04/27/25 09:56) anger Medication List - Last Reconciled 04/27/25 by Shonda Caldwell MD albuterol sulfate 90 mcg/actuation 1 inh inhalation QID PRN clonazepam mg PO DAILY gabapentin 800 mg PO BEDTIME lamotrigine 100 mg PO DAILY simvastatin 20 mg PO DAILY trazodone mg PO Tobacco use date assessed: 04/27/25 Dental Screening Dental Screen Date: 04/27/25 Did you have a dental visit in the last 12 months?: Yes Did you have a dental problem in the last 6 months where you did not have access to dental care?: No Was dental information given to patient?: Patient has dentist HPI mesopause HPI Details Physical exam appointment History of Present Illness The patient is a 49-year-old female presenting with missed menstrual periods and evaluation of menopausal symptoms. Menopausal symptoms: - The patient reports missing her menstrual periods for the past three months. - She describes experiencing hot flashes that cause immediate nausea, with episodes significant enough to necessitate air conditioning use in 80-degree weather. Secondary amenorrhea: - The patient has not had a menstrual period for the last three months. - Prior to the cessation, she experienced episodes of having periods twice a month. Alopecia: - The patient reports thinning of hair with some bald spots. - She notes compulsively picking her scalp which leaves scabs. Patient suffers from PTSD and depression and is established with Psychiatry Osteoarthritis: - The patient describes knee pain that worsens when walking upstairs. - She relates a family history of early osteoarthritis. Tobacco use disorder: - The patient currently smokes and expresses a desire to quit, though finds it challenging. Hyperlipidemia: - The patient is on Simvastatin for management. Obsessive-Compulsive Disorder (OCD): - She describes engaging in compulsive scalp-picking, potentially as an outlet for stress. Colon polyps: - History of colonoscopy revealing hyperplastic polyps, with a recommended follow-up in 10 years. We will be due in 2033 Medical History: - Menopausal symptoms - Secondary amenorrhea - Hyperlipidemia - Obsessive-Compulsive Disorder (OCD) - Colon polyps - Asthma (not currently active) Surgical History: - Bilateral tubal ligation Social History: - The patient has two children and a grandson living at home. 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 - Reports significant work-related stress, working 22/03. - Is a smoker, wishes to quit but finds it difficult. 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 - Describes the job as highly demanding and stressful, working continuously Patient Instructions - Schedule a follow-up visit to discuss lab results - Continue taking Simvastatin as prescribed - Consider stress-reduction techniques such as using stress balls to help manage OCD tendencies - Attend scheduled mammogram and thyroid screenings Physical exam 1 year, telemedicine visit 1 week to go over labs Review of Systems - General: No fever no chills - Neurological: No headaches no dizziness - Ear nose throat: No sore throat no hearing difficulty no ear pain - Cardiovascular: No syncope, no chest pain, no palpitations - Gastrointestinal: No nausea vomiting or diarrhea - Endocrine: No polyuria polydipsia no heat intolerance - Genitourinary: No dysuria - Skin: No new complaints Physical Exam General: Cooperative, healthy appearing, comfortable, no acute distress Orientation: Patient oriented x3 Limitations: Head: Normal to inspection, but patient reports scabs and bald spots due to picking Ears: Within normal limit visually Nose: Normal external nose present Face and sinus: Normal facial exam Eyes: Appearance normal, extraocular movement intact pupils reactive Neck: Normal visual inspection and supple Respiratory: Normal respiratory effort and able to speak in complete sentences. Clear to auscultation, no stridor Cardiovascular: S1 and S2 RRR Breast exam benign GI: Normal to inspection. Soft to palpation and nontender Skin: Turgor normal, no acute findings, but patient reports scabs on scalp Neuro: Patient oriented x3, motor sensory intact, balance intact, tandem pass Extremities: Normal to inspection, full range of motion [facility] Medical History Marijuana smoker Asthma Anxiety History of OCD (obsessive compulsive disorder) Bipolar disorder PONV (postoperative nausea and vomiting) Constipation GERD (gastroesophageal reflux disease) Smoker Chronic bronchitis Cough Surgical History Hx of tubal ligation Family History Other Mental health disorder Social History Housing: Apartment Are you a primary respiratory care assistant to a significant other at home: No Do you presently have visiting nurse or other home services: No Alcohol intake: unknown Patient Tobacco Use Status: Current everyday Tobacco user Tobacco use type: Cigarette Cigarettes Per Day: 10 e-Cigarette/Vaping Use: Never Used Substance Use Type: Marijuana service: No Current occupational status: employed Cognitive needs: No Hearing needs: No Vision needs: Yes Questionnaire Thrive Questionnaire Date Thrive assessed: 10/06/24 I am a: Patient What is your living situation today?: I have a steady place to live Within the past 12 months, did the food you bought not last and you didn't have the money to get more?: Never true Within the past 12 months, did you worry whether your food would run out before you got money to buy more?: Never true Do you have trouble paying for medicines?: No Do you have trouble getting transportation to medical appointments?: No Do you have trouble paying your heating and electricity bill?: No Do you have trouble taking care of your child, family member or friend?: No Do you have trouble with day-to-day activities such as bathing, preparing meals, shopping, managing finances, etc.?: No Are you currently unemployed and looking for a job?: No Are you interested in more education?: No Please select the resources that you would like help with: None Currently or been in a relationship where the following occur: No concerns reported THRIVE Score: 0 ADDIE-7 AMB Questionnaire ADDIE-7 Date ADDIE - 7 assessed: 10/06/24 Source: Developed by Drs. Ulises Thakur, Lia Banerjee, Sulaiman Berg and colleagues, with an educational javon from [employer]. Physical exam (Primary Care) Vital Signs: Last Vital Signs Temp 98.1 F 04/27/25 09:55 Pulse 85 04/27/25 09:55 Resp 18 04/27/25 09:55 BP 102/70 04/27/25 09:55 Pulse Ox 97 04/27/25 09:55 Oxygen Delivery Method Room Air 04/27/25 09:55 BMI result Body Mass Index 26.6 Tobacco/Smoking Status: Tobacco use Status Tobacco use date assessed 04/27/25 04/27/25 10:00 Patient Tobacco Use Status Current everyday Tobacco 04/27/25 09:51 Tobacco use type Cigarette 04/27/25 09:51 e-Cigarette/Vaping Use Never Used 04/27/25 09:51 Thrive Assessment: Date of Thrive Assessment Date Thrive assessed 10/06/24 04/27/25 09:51 Currently or been in a relationship where the following occur: No concerns reported Coding Level of Care Code Est Pt Level 3 (27490) Est Pt Prev Care 40-64y(27633) Diagnoses Encounter for general adult medical examination with abnormal findings Z00.01 Missed period N92.6 Cigarette nicotine dependence without complication F17.210 Nicotine product type: cigarettes Substance use status: uncomplicated Lipid disorder E78.9 Bipolar disorder, in full remission, most recent episode mixed F31.78 Active/Remission status: in full remission Most recent bipolar episode type: mixed Environmental allergies Z91.09 Assessment & Plan Assessment & Plan (1) Encounter for general adult medical examination with abnormal findings: Code(s): Z00.01 - Encounter for general adult medical examination with abnormal findings Category: Medical (2) Missed period: Code(s): N92.6 - Irregular menstruation, unspecified Category: Medical (3) Nicotine dependence: Code(s): F17.200 - Nicotine dependence, unspecified, uncomplicated Category: Medical Qualifiers: Nicotine product type: cigarettes Substance use status: uncomplicated Qualified Code(s): F17.210 - Nicotine dependence, cigarettes, uncomplicated (4) Lipid disorder: Code(s): E78.9 - Disorder of lipoprotein metabolism, unspecified Category: Medical (5) Bipolar disorder: Code(s): F31.9 - Bipolar disorder, unspecified Category: Medical Qualifiers: Active/Remission status: in full remission Most recent bipolar episode type: mixed Qualified Code(s): F31.78 - Bipolar disorder, in full remission, most recent episode mixed (6) Environmental allergies: Code(s): Z91.09 - Other allergy status, other than to drugs and biological substances Category: Medical Plan Physical exam appointment History of Present Illness The patient is a 49-year-old female presenting with missed menstrual periods and evaluation of menopausal symptoms. Menopausal symptoms: - The patient reports missing her menstrual periods for the past three months. - She describes experiencing hot flashes that cause immediate nausea, with episodes significant enough to necessitate air conditioning use in 80-degree weather. Secondary amenorrhea: - The patient has not had a menstrual period for the last three months. - Prior to the cessation, she experienced episodes of having periods twice a month. Alopecia: - The patient reports thinning of hair with some bald spots. - She notes compulsively picking her scalp which leaves scabs. Patient suffers from PTSD and depression and is established with Psychiatry Osteoarthritis: - The patient describes knee pain that worsens when walking upstairs. - She relates a family history of early osteoarthritis. Tobacco use disorder: - The patient currently smokes and expresses a desire to quit, though finds it challenging. Hyperlipidemia: - The patient is on Simvastatin for management. Obsessive-Compulsive Disorder (OCD): - She describes engaging in compulsive scalp-picking, potentially as an outlet for stress. Colon polyps: - History of colonoscopy revealing hyperplastic polyps, with a recommended follow-up in 10 years. We will be due in 2033 Medical History: - Menopausal symptoms - Secondary amenorrhea - Hyperlipidemia - Obsessive-Compulsive Disorder (OCD) - Colon polyps - Asthma (not currently active) Surgical History: - Bilateral tubal ligation Social History: - The patient has two children and a grandson living at home. 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 - Reports significant work-related stress, working 22/03. - Is a smoker, wishes to quit but finds it difficult. 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 - Describes the job as highly demanding and stressful, working continuously Patient Instructions - Schedule a follow-up visit to discuss lab results - Continue taking Simvastatin as prescribed - Consider stress-reduction techniques such as using stress balls to help manage OCD tendencies - Attend scheduled mammogram and thyroid screenings Physical exam 1 year, telemedicine visit 1 week to go over labs Orders: Orders Lutenizing Hormone Today E78.9 - Disorder of lipoprotein metabolism, unspecified, F17.210 - Nicotine dependence, cigarettes, uncomplicated, F31.78 - Bipolar disorder, in full remission, most recent episode mixed, N92.6 - Irregular menstruation, unspecified, Z00.01 - Encounter for general adult medical examination with abnormal findings, Z91.09 - Other allergy status, other than to drugs and biological substances Follicle Stimulating Hormone Today E78.9 - Disorder of lipoprotein metabolism, unspecified, F17.210 - Nicotine dependence, cigarettes, uncomplicated, F31.78 - Bipolar disorder, in full remission, most recent episode mixed, N92.6 - Irregular menstruation, unspecified, Z00.01 - Encounter for general adult medical examination with abnormal findings, Z91.09 - Other allergy status, other than to drugs and biological substances TSH reflex Free T4 Today E78.9 - Disorder of lipoprotein metabolism, unspecified, F17.210 - Nicotine dependence, cigarettes, uncomplicated, F31.78 - Bipolar disorder, in full remission, most recent episode mixed, N92.6 - Irregular menstruation, unspecified, Z00.01 - Encounter for general adult medical examination with abnormal findings, Z91.09 - Other allergy status, other than to drugs and biological substances Complete Blood Count Auto Diff Today E78.9 - Disorder of lipoprotein metabolism, unspecified, F17.210 - Nicotine dependence, cigarettes, uncomplicated, F31.78 - Bipolar disorder, in full remission, most recent episode mixed, N92.6 - Irregular menstruation, unspecified, Z00.01 - Encounter for general adult medical examination with abnormal findings, Z91.09 - Other allergy status, other than to drugs and biological substances Comprehensive [place]. Panel Fast Today E78.9 - Disorder of lipoprotein metabolism, unspecified, F17.210 - Nicotine dependence, cigarettes, uncomplicated, F31.78 - Bipolar disorder, in full remission, most recent episode mixed, N92.6 - Irregular menstruation, unspecified, Z00.01 - Encounter for general adult medical examination with abnormal findings, Z91.09 - Other allergy status, other than to drugs and biological substances Lipid Panel Today E78.9 - Disorder of lipoprotein metabolism, unspecified, F17.210 - Nicotine dependence, cigarettes, uncomplicated, F31.78 - Bipolar disorder, in full remission, most recent episode mixed, N92.6 - Irregular menstruation, unspecified, Z00.01 - Encounter for general adult medical examination with abnormal findings, Z91.09 - Other allergy status, other than to drugs and biological substances MM tomosynthesis screening BI Today Z12.31 - Encounter for screening mammogram for malignant neoplasm of breast
[2025-04-27 09:55] VITALS: BP 102/70; PULSE 85; RESP 18; TEMP 36.7; O2SAT 97; BMI 26.6
== END 2025-04-27 10:16 | disposition home or self-care (01) ==
LOC: HO.HMCC 09:49
PROVIDERS: PCP Internal Medicine; Visit Provider Internal Medicine
DX: Z00.01 Encounter for general adult medical examination with abnormal findings (principal); N92.6 Irregular menstruation, unspecified; F17.210 Nicotine dependence, cigarettes, uncomplicated; E78.9 Disorder of lipoprotein metabolism, unspecified; F31.78 Bipolar disorder, in full remission, most recent episode mixed; Z91.09 Other allergy status, other than to drugs and biological substances

== ENCOUNTER 2025-04-27 09:48 | Outpatient (REF) | payer OTHER, SELFPAY ==
[2025-04-27 13:34] LABS: MANUAL DIFF FLAG NO
[2025-04-27 13:39] LABS: Hematocrit 40.7 % (37.0-47.0); Hemoglobin 13.4 g/dl (12.0-16.0); Imm Gran Abs Auto 0.03 X10*3/uL (0.00-0.03); Imm Gran Pct Auto 0.3 % (0.0-0.4); Lymphocytes Absolute Auto 2.2 X10*3/uL (1.2-4.9); Mean Corpuscular HGB Conc 32.9 g/dl (31.0-35.0); Mean Corpuscular Hemoglobin 31.4 pg (27.0-33.0); Mean Corpuscular Volume 95.3 fL (80.0-98.0); NRBC Abs Auto 0.000 X10*3/uL (0.0-0.012); NRBC Pct Auto 0.0 /100WBC (0.0-0.2); Platelet Count 303 X10*3/uL (160-400); Red Blood Count 4.27 X10*6/uL (4.20-5.50); White Blood Count 10.4 X10*3/uL (4.8-10.8)
[2025-04-27 14:03] LABS: Alanine Aminotransferase 19 U/L (0-31); Albumin Level 4.9 g/dL (3.5-5.0); Alkaline Phosphatase 57 U/L (39-117); Anion Gap 13 (12-20); Aspartate Amino Transferase 24 U/L (5-31); Blood Urea Nitrogen 19 mg/dL (9-16); Calcium 9.3 mg/dL (8.4-10.2); Carbon Dioxide 27 mmol/L (22-29); Chloride 109 mmol/L (96-108); Cholesterol 187 mg/dL (<200); Estimated Glomerular Filt Rate > 60; HDL Cholesterol 64 mg/dL (>40); Potassium 4.1 mmol/L (3.3-5.1); Sodium 145 mmol/L (135-145); Total Protein 7.3 g/dL (6.5-8.0); Triglycerides 72 mg/dL (<150)
[2025-04-28 11:58] LABS: Follicle Stimulating Hormone 93.5 mIU/mL
== END 2025-04-27 09:49 | disposition home or self-care (01) ==
LOC: HO.HMGCLDS 09:48
PROVIDERS: PCP Internal Medicine; Visit Provider Internal Medicine
DX: Z00.01 Encounter for general adult medical examination with abnormal findings (principal); N92.6 Irregular menstruation, unspecified; E78.5 Hyperlipidemia, unspecified; F31.78 Bipolar disorder, in full remission, most recent episode mixed; L65.9 Nonscarring hair loss, unspecified; F42.9 Obsessive-compulsive disorder, unspecified; M19.90 Unspecified osteoarthritis, unspecified site; F17.210 Nicotine dependence, cigarettes, uncomplicated; Z91.09 Other allergy status, other than to drugs and biological substances
CPT/HCPCS: 36415; 80053; 80061; 83001; 83002; 84443; 85025

== ENCOUNTER 2025-05-10 08:11 | Outpatient (AMB) | payer OTHER, SELFPAY ==
--- NOTE | 2025-05-10 09:04 | A.OFFPC_ITS ---
Intake Visit Reasons: 2 week follow up Allergies divalproex sodium (Depakote) Allergy (Intermediate, Verified 04/27/25 09:56) anger Medication List - Last Reconciled 05/10/25 by Shonda Caldwell MD albuterol sulfate 90 mcg/actuation 1 inh inhalation QID PRN clonazepam mg PO DAILY gabapentin 800 mg PO BEDTIME lamotrigine 100 mg PO DAILY simvastatin 20 mg PO DAILY trazodone mg PO Tobacco use date assessed: 04/27/25 Dental Screening Dental Screen Date: 04/27/25 HPI 2 week follow up HPI Details History of Present Illness The patient is a 50-year-old female presenting with symptoms of scalp psoriasis. Scalp Psoriasis: - The patient reports experiencing sympt oms that resemble psoriasis on the scalp. - She notes that the issue began with bu mps on the scalp that she picked at, leading to scabs or scales. - The scales are dry, and the scalp feel s tight and itchy. - The condition has progressed, leading to severe shedding of scalp material, noted on clothing and furniture. - She has tried using [employer] Should[employer] s hampoo, which worsened the condition, and plans to attempt soaking her scalp with coconut oil followed by tea gel treatment. Menopause: - The patient received lab results indic ating menopausal status. - She reports a cessation of menstruatio n but notes that she has not reached a full year without periods. - She is experiencing hormonal fluctuati ons that may contribute to mood changes. Lipid disorder : continue statin Diagnostic Results: lab results reviewed LDL Noted at 109, Problem List - Scalp Psoriasis - Menopausal Status - Lipid disoder Patient Instructions - Apply the prescribed oil to the scalp overnight, then wash it off in the morning with either tea tree shampoo or regular shampoo if sensitive. - Use the scalp treatment every other da y for two weeks, and then follow up for evaluation. - Continue taking simvastatin as prescri bed for cholesterol management. - Monitor for irregularities in menstrua l cycle, particularly if menstruation ceases for a full year. Review of Systems - General: No fever no chills - Neurological: No headaches no dizziness - Ear nose throat: No sore throat no hearing difficulty no ear pain - Cardiovascular: No syncope, no chest pain, no palpitations - Gastrointestinal: No nausea vomiting or diarrhea [facility] Medical History Marijuana smoker Asthma Anxiety History of OCD (obsessive compulsive disorder) Bipolar disorder PONV (postoperative nausea and vomiting) Constipation GERD (gastroesophageal reflux disease) Smoker Chronic bronchitis Cough Surgical History Hx of tubal ligation Family History Other Mental health disorder Social History Housing: Apartment Are you a primary patient care representative to a significant other at home: No Do you presently have visiting nurse or other home services: No Alcohol intake: unknown Patient Tobacco Use Status: Current everyday Tobacco user Tobacco use type: Cigarette Cigarettes Per Day: 10 e-Cigarette/Vaping Use: Never Used Substance Use Type: Marijuana service: No Current occupational status: employed Cognitive needs: No Hearing needs: No Vision needs: Yes Questionnaire Thrive Questionnaire Date Thrive assessed: 10/06/24 ADDIE-7 AMB Questionnaire ADDIE-7 Date ADDIE - 7 assessed: 10/06/24 Source: Developed by Drs. Ulises Thakur, Lia Banerjee, Sulaiman Berg and colleagues, with an educational javon from [employer]. Physical exam (Primary Care) Tobacco/Smoking Status: Tobacco use Status Tobacco use date assessed 04/27/25 05/10/25 09:04 Patient Tobacco Use Status Current everyday Tobacco 05/10/25 09:04 Tobacco use type Cigarette 05/10/25 09:04 e-Cigarette/Vaping Use Never Used 05/10/25 09:04 Thrive Assessment: Date of Thrive Assessment Date Thrive assessed 10/06/24 05/10/25 09:04 Telehealth Telehealth Telehealth Platform: [facility] Location of provider rendering services: practice address Location of patient: address on file Patient Identification confirmed using: Name, : Yes Telehealth method: video Patient verbally consented to treatment: Yes Patient verbally consented to billing insurance company: Yes Patient informed of any privacy concerns related to visit: Yes Minutes spent on Phone/Video with Pt.: 14 Coding Level of Care Code Tele Est Pt Level 3 (56465) Diagnoses Seborrheic dermatitis of scalp L21.9 Lipid disorder E78.9 Irregular menstrual bleeding N92.6 Assessment & Plan Assessment & Plan (1) Seborrheic dermatitis of scalp: Code(s): L21.9 - Seborrheic dermatitis, unspecified Category: Medical (2) Lipid disorder: Code(s): E78.9 - Disorder of lipoprotein metabolism, unspecified Category: Medical (3) Irregular menstrual bleeding: Code(s): N92.6 - Irregular menstruation, unspecified Category: Medical Plan History of Present Illness The patient is a 50-year-old female presenting with symptoms of scalp psoriasis. Scalp Psoriasis: - The patient reports experiencing symptoms that resemble psoriasis on the scalp. - She notes that the issue began with bumps on the scalp that she picked at, leading to scabs or scales. - The scales are dry, and the scalp feels tight and itchy. - The condition has progressed, leading to severe shedding of scalp material, noted on clothing and furniture. - She has tried using [employer] shampoo, which worsened the condition, and plans to attempt soaking her scalp with coconut oil followed by tea gel treatment. Menopause: - The patient received lab results indicating menopausal status. - She reports a cessation of menstruation but notes that she has not reached a full year without periods. - She is experiencing hormonal fluctuations that may contribute to mood changes. Lipid disorder : continue statin Diagnostic Results: lab results reviewed LDL Noted at 109, Problem List - Scalp Psoriasis - Menopausal Status - Lipid disoder Patient Instructions - Apply the prescribed oil to the scalp overnight, then wash it off in the morning with either tea tree shampoo or regular shampoo if sensitive. - Use the scalp treatment every other day for two weeks, and then follow up for evaluation. - Continue taking simvastatin as prescribed for cholesterol management. - Monitor for irregularities in menstrual cycle, particularly if menstruation ceases for a full year. Medications: New clobetasol 0.05% message in scalp and leave over night, wash in am with shampoo 1 appl topical BID 50 mL 0RF 2 weeks
== END 2025-05-10 10:49 | disposition home or self-care (01) ==
LOC: HO.HMCC 08:11
PROVIDERS: PCP Internal Medicine; Visit Provider Internal Medicine
DX: N92.6 Irregular menstruation, unspecified (principal); L21.9 Seborrheic dermatitis, unspecified; E78.9 Disorder of lipoprotein metabolism, unspecified

== ENCOUNTER 2025-08-21 10:03 | Emergency (ER) | payer OTHER, SELFPAY ==
--- NOTE | ~2025-08-21 | CT_ITS ---
EXAMINATION: CT SOFT TISSUE NECK WITH CONTRAST CLINICAL INFORMATION: Submandibular facial swelling. Evaluate for sialoadenitis. COMPARISON: None available. TECHNIQUE: Following the intravenous administration of 60 mL of Omnipaque 350 intravenous contrast, helical imaging was performed in the axial plane with generation of coronal and sagittal reformatted images. This CT examination was performed using dose optimization techniques as appropriate, variously including the following: *Automated exposure control *Adjustment of mA and/or kV according to patient size (this includes techniques or standardized protocols for targeted exams where dose is matched to indication/reason for exam; i.e. extremities or head) *Use of iterative reconstruction technique DLP: 418 mGy/cm. FINDINGS: Visualized intracranial brain parenchyma and the intravascular structures appear unremarkable. Bilateral paranasal sinuses and mastoid air cells are well-aerated. Bilateral optic globes, optic nerve and the periorbital soft tissues are normal. Bilateral parotid, submandibular glands and thyroid lobes are symmetrical and normal. There are 2 large submandibular duct stones measuring 8.5 mm and 1.3 cm radiopaque calculi. The right sublingual gland is asymmetrically slightly enlarged compared to left side. Central tracheal, oropharyngeal, laryngeal and nasal airways widely patent. The oral cavity is limited evaluation secondary to dental amalgam and hardware artifacts. Visualized base and the floor of the tongue was grossly unremarkable. Visualized bilateral buccal and alveolar space surrounding the mandible is symmetrical and appears unremarkable. No facial soft tissue asymmetry seen however limited due to dental artifacts. Bilateral tonsil appears in the adenoids are symmetrical and normal. Bilateral carotid arteries and jugular veins are patent. Small shotty nonenlarged bilateral neck lymph nodes are seen. There is reversal of cervical lordosis with mild degenerative disc changes at the C4-5 disc level. No aggressive lytic or sclerotic process seen. CT/CT soft tissue neck w IV con IMPRESSION: At least 2 radiopaque right submandibular gland duct stones. There is minimal asymmetric enlargement of right sublingual gland likely secondary to mass effect from adjacent sialolith Electronically signed by: Jim Ochoa MD 08/21/2025 04:02 PM EST
[2025-08-21 10:11] VITALS: BP 139/63; PULSE 65; RESP 18; TEMP 36.6; O2SAT 97; BMI 27.0
--- NOTE | 2025-08-21 10:15 | ED.GENADULT ---
HPI - General Adult General Chief complaint: Dental/Oral Stated complaint: Swelling In Mouth/ Throat Time Seen by Provider: 08/21/25 12:52 Source: patient Mode of arrival: ambulatory Limitations: no limitations History of Present Illness ED Provider: DR. King HPI narrative: 50-year-old female diagnosed with sialadenitis a week ago at the urgent care patient was started on cephalexin 500 mg b.i.d. times week returned today for persistent of swelling of her mouth and pain. Related Data Home Medications ?Medication ?Instructions ?Recorded ?Confirmed lamotrigine 100 mg tablet 100 mg PO DAILY 09/07/23 05/10/25 clonazepam 0.5 mg tablet mg PO DAILY 11/03/24 05/10/25 trazodone 50 mg tablet mg PO 11/03/24 05/10/25 gabapentin 600 mg tablet 800 mg PO BEDTIME 04/27/25 05/10/25 Previous Rx's ?Medication ?Instructions ?Recorded albuterol sulfate 90 mcg/actuation 1 inh inhalation QID PRN shortness 10/09/24 aerosol inhaler of breath or wheezing #8.5 grams clobetasol 0.05 % scalp solution 1 appl topical BID 2 weeks #50 mL 05/10/25 simvastatin 20 mg tablet 20 mg PO DAILY High cholesterol 07/22/25 #90 tabs Allergies Allergy/AdvReac Type Severity Reaction Status Date / Time divalproex sodium (Depakote) Allergy Intermediate anger Verified 08/21/25 10:13 Review of Systems Review of Systems: All other systems are reviewed and are negative Constitutional: Reports as per HPI and Reports no additional constitutional complaints Eyes: Reports as per HPI and Reports no additional eye complaints Reports system reviewed and no additional complaints, except as documented Cardiovascular: Reports as per HPI and Reports no additional cardiovascular complaints Respiratory: Reports as per HPI and Reports no additional respiratory complaints Gastrointestinal: Reports as per HPI and Reports no additional gastrointestinal complaints Genitourinary: Reports no additional female genitourinary complaints Musculoskeletal: Reports no additional musculoskeletal complaints Skin/Breast: Reports system reviewed and no additional complaints, except as docu Psychiatric: Reports no additional psychiatric complaints Endocrine: Reports no additional endocrine complaints Hematologic/Lymphatic: Reports no additional hematologic/lymphatic complaints Allergic/Immunologic: Reports no additional allergic/immunologic complaints Reports system reviewed and no additional complaints, except as documented and Reports Abnormal speech present [facility] Past Medical History Medical History Marijuana smoker Asthma Anxiety History of OCD (obsessive compulsive disorder) Bipolar disorder PONV (postoperative nausea and vomiting) Constipation GERD (gastroesophageal reflux disease) Smoker Chronic bronchitis Cough Surgical History Hx of tubal ligation Family History Family History Other Mental health disorder Social History Social History Housing: Apartment Are you a primary hospice home care coordinator to a significant other at home: No Do you presently have visiting nurse or other home services: No Alcohol intake: unknown Patient Tobacco Use Status: Current everyday Tobacco user Tobacco use type: Cigarette Cigarettes Per Day: 10 e-Cigarette/Vaping Use: Never Used Substance Use Type: Marijuana Advance Directives: No Advance Directives Information Provided: Yes service: No Current occupational status: employed Cognitive needs: No Hearing needs: No Vision needs: Yes Physical Exam ED Vital Signs: Vital Signs - 24 hr 08/21/25 15:25 08/21/25 16:36 Temperature 0 F L Pulse Rate 64 65 Respiratory Rate 16 16 Blood Pressure 123/63 134/81 Pulse Oximetry 98 95 Oxygen Delivery Method Room Air Room Air BMI result Body Mass Index 27.0 Vital signs have been reviewed and appear to be correct. Blood pressure elevated. Heart rate normal. Respiratory rate normal. Temperature normal. Oxygen saturation normal. Appearance: Alert. Oriented X3. No acute distress. Head: Normal external exam. Normocephalic. Atraumatic. No Bustillo signs noted. No raccoon eyes noted Eyes: PERRLA. EOMI. Conjunctiva and sclera normal. Eyelids normal. ENT: TM's Normal. Pharynx normal. Uvula midline. Moist mucous membranes. No trismus noted. No drooling noted. No muffled voice noted. No mouth floor erythema or swelling, no tongue protrusion. Patent airway, no stridor. Neck: Normal inspection. Neck supple. FROM. No adenopathy. Thyroid Normal. No meningeal signs. No neck mass noted. CVS: Normal heart rate and rhythm. Heart sound normal. No murmurs noted. Pulses normal throughout. Respiratory: No respiratory distress. Painless inspiration. Breath sounds normal. No wheezes/rales/rhonchi noted. Chest nontender. No accessory muscle usage noted or decreased air movement noted. Abdomen: Soft and nontender. Bowel sounds normal in all 4 quadrants. No distention noted. No organomegaly noted. No visible injury noted. Back: No CVA tenderness. Full range of motion noted. Skin: Skin warm and dry. Normal skin color. Normal skin turgor. No rashes/lesions/lacerations noted. Extremities: No lower extremity edema. Extremities exhibit normal range of motion. Extremities nontender. Neuro: Oriented X 3. Cranial nerve exam: II-XII are grossly intact No motor deficit. No sensory deficit. Reflexes normal. Course Course Course Narrative: RME: 50 yold female with over week of salivary stone not improving and right below tongue swelling. Patient sent from urgent care for CT scan. patient is not in any respiratory distress. Negative for any drooling or change in voice. labs ordered Reevaluation(s) Reevaluation #1: normal WBCs, VSS, no signs of sepsis, CT soft tissue neck to rule out parotitis versus soft tissue neck abscess versus airway compromise. CT of the abdomen pelvis is showing couple small stones in the submandibular salivary gland. Patient already finished a course of antibiotic, was instructed to take a sour candy. Time: 16:00 Medications Administered Discontinued Medications Generic Name Dose Route Start Last Admin Trade Name Freq PRN Reason Stop Dose Admin Iohexol 100 ml 08/21/25 15:09 08/21/25 15:10 Iohexol 350 Mg/Ml 100 Ml Infus..Btl IV 08/21/25 15:10 60 ml ONCE ONE Administration Medical Decision Making Differential Diagnosis Differential Diagnoses: The differential diagnosis associated with the presentation includes ( Soft tissue abscess, parotitis, parotitis, airway compromise.) Admission/Observation Consideration of admission/observation: Escalation of care including admission/observation considered Lab Data MDM Lab Attestation statement: I reviewed the patient's lab results. 08/21/25 10:35 08/21/25 10:35 Labs: Lab Results 08/21/25 Range/Units 10:35 WBC 8.1 (4.8-10.8) X10*3/uL RBC 3.80 L (4.20-5.50) X10*6/uL Hgb 12.0 (12.0-16.0) g/dl Hct 36.6 L (37.0-47.0) % MCV 96.3 (80.0-98.0) fL MCH 31.6 (27.0-33.0) pg MCHC 32.8 (31.0-35.0) g/dl RDW 13.0 (11.0-16.0) % Plt Count 275 (160-400) X10*3/uL MPV 9.8 (9.4-12.3) fL Immature Gran % (Auto) 0.2 (0.0-0.4) % Neut % (Auto) 64.3 (45-73) % Lymph % (Auto) 25.7 (20-40) % Amelia % (Auto) 6.9 (2-11) % Eos % (Auto) 2.0 (0-4) % Baso % (Auto) 0.9 (0-2) % Lymph # (Auto) 2.1 (1.2-4.9) X10*3/uL Amelia # (Auto) 0.6 (0.1-1.2) X10*3/uL Eos # (Auto) 0.2 (0.0-0.4) X10*3/uL Baso # (Auto) 0.1 (0.0-0.2) X10*3/uL Abs Immat Gran (auto) 0.02 (0.00-0.03) X10*3/uL Absolute Neuts (auto) 5.2 (2.0-8.3) x10*3/uL Absolute Nucleated RBC 0.000 (0.0-0.012) X10*3/uL Nucleated RBC % (auto) 0.0 (0.0-0.2) /100WBC Sodium 142 (135-145) mmol/L Potassium 4.7 (3.3-5.1) mmol/L Chloride 111 H (96-108) mmol/L Carbon Dioxide 25 (22-29) mmol/L Anion Gap 11 L (12-20) BUN 19 H (9-16) mg/dL Creatinine 0.80 (0.5-1.4) mg/dL Estim Creat Clear Calc 92.6 Estimated GFR > 60 Random Glucose 98 (60-115) mg/dL Calcium 8.8 (8.4-10.2) mg/dL Total Bilirubin 0.2 (0.0-1.0) mg/dL AST 23 (5-31) U/L ALT 21 (0-31) U/L Alkaline Phosphatase 60 (39-117) U/L Total Protein 6.5 (6.5-8.0) g/dL Albumin 4.3 (3.5-5.0) g/dL Beta HCG, Quant < 2 mIU/mL Influenza Type A (PCR) NEGATIVE (Negative) Influenza Type B (PCR) NEGATIVE (Negative) RSV RNA Qual (PCR) NEGATIVE (Negative) SARS-CoV-2 RNA (RT-PCR) NEGATIVE (Negative) S. pyogenes GrpA KWABENA Negative (Negative) Independent Interpretation I performed an independent interpretation of an: CT Scan ( CT soft tissue neck:At least 2 radiopaque right submandibular gland duct stones. There is minimal asymmetric enlargement of right sublingual gland likely secondary to mass effect from adjacent sialolith) Radiology Impression Discussion of test interpretation with radiology: I have reviewed the radiologist's reading. Discharge Plan Discharge Clinical Impression: Acute sialoadenitis Patient Disposition: Home, Self-Care Instructions: Sialoadenitis (ED) Prescriptions: No Action albuterol sulfate 90 mcg/actuation HFA aerosol inhaler 1 inh inhalation QID PRN (Reason: shortness of breath or wheezing) Qty: 8.5 1RF simvastatin 20 mg tablet 20 mg PO DAILY Qty: 90 0RF gabapentin 600 mg tablet 800 mg PO BEDTIME lamotrigine 100 mg tablet 100 mg PO DAILY trazodone 50 mg tablet PO clonazepam 0.5 mg tablet PO DAILY clobetasol 0.05 % solution 1 appl topical BID 14 Days Qty: 50 0RF Rx Instructions: message in scalp and leave over night, wash in am with shampoo Referrals: [facility] [Provider Group, Ear, Nose, Throat] Interventions: ED Discharge Assessment Last Done: 08/21/25 16:36 Discharge Date/Time: 08/21/25 16:37 Print Language: Kyrgyz
[2025-08-21 10:41] LABS: Hematocrit 36.6 % (37.0-47.0); Hemoglobin 12.0 g/dl (12.0-16.0); Imm Gran Abs Auto 0.02 X10*3/uL (0.00-0.03); Imm Gran Pct Auto 0.2 % (0.0-0.4); Lymphocytes Absolute Auto 2.1 X10*3/uL (1.2-4.9); MANUAL DIFF FLAG NO; Mean Corpuscular HGB Conc 32.8 g/dl (31.0-35.0); Mean Corpuscular Hemoglobin 31.6 pg (27.0-33.0); Mean Corpuscular Volume 96.3 fL (80.0-98.0); NRBC Abs Auto 0.000 X10*3/uL (0.0-0.012); NRBC Pct Auto 0.0 /100WBC (0.0-0.2); Platelet Count 275 X10*3/uL (160-400); Red Blood Count 3.80 X10*6/uL (4.20-5.50); White Blood Count 8.1 X10*3/uL (4.8-10.8)
[2025-08-21 10:50] LABS: Strep A Nucleic Acid Negative (Negative)
[2025-08-21 11:09] LABS: Alanine Aminotransferase 21 U/L (0-31); Albumin Level 4.3 g/dL (3.5-5.0); Alkaline Phosphatase 60 U/L (39-117); Anion Gap 11 (12-20); Aspartate Amino Transferase 23 U/L (5-31); Blood Urea Nitrogen 19 mg/dL (9-16); Calcium 8.8 mg/dL (8.4-10.2); Carbon Dioxide 25 mmol/L (22-29); Chloride 111 mmol/L (96-108); Creatinine Clr Calc Pharmacy 92.6; Estimated Glomerular Filt Rate > 60; Potassium 4.7 mmol/L (3.3-5.1); Sodium 142 mmol/L (135-145); Total Protein 6.5 g/dL (6.5-8.0)
[2025-08-21 11:28] LABS: Resp Syncy Virus RNA Qual PCR NEGATIVE (Negative); SARS COV2 PCR INHOUSE NEGATIVE (Negative)
[2025-08-21] MEDS: iohexoL 350 MG/ML 100 ML INFUS..BTL IV (15:10)
[2025-08-21 15:25] VITALS: BP 123/63; PULSE 64; RESP 16; O2SAT 98
[2025-08-21 16:36] VITALS: BP 134/81; PULSE 65; RESP 16; TEMP -17.7; TEMP 0; O2SAT 95
== END 2025-08-21 16:37 | disposition home or self-care (01) ==
PROVIDERS: Physician Assistant; Emergency Provider Emergency Medicine; PCP Internal Medicine
DX: K11.21 Acute sialoadenitis (principal); F17.210 Nicotine dependence, cigarettes, uncomplicated; R05.9 Cough, unspecified; J45.909 Unspecified asthma, uncomplicated; Z87.19 Personal history of other diseases of the digestive system; Z79.899 Other long term (current) drug therapy
CPT/HCPCS: 36415; 70491; 80053; 84702; 85025; 87637; 87651; 99284; 99285; Q9967

== ENCOUNTER → 2025-08-21 12:59 | Outpatient (BNV) | payer OTHER, SELFPAY | PROVIDERS: Emergency Provider Emergency Medicine; PCP Internal Medicine; Visit Provider Radiology Diagnostic Radiology | DX: K11.5 Sialolithiasis (principal) | CPT/HCPCS: 70491 ==

== ENCOUNTER 2025-08-29 12:13 | Outpatient (AMB) | payer OTHER, SELFPAY ==
--- NOTE | 2025-08-29 12:16 | A.OFFPC_ITS ---
Vital Signs 08/29/25 12:17 Height 5 ft 7 in Weight 169 lb 8 oz BMI 26.5 BP 130/88 Blood Pressure Location Lt brachial Position Sitting Respiration 18 Pulse 76 Pulse Source Pulse Oximeter Pulse Oximetry (%) 98 Oxygen Delivery Method Room Air Intake Visit Reasons: ED F/U ENT Referral Allergies divalproex sodium (Depakote) Allergy (Intermediate, Verified 08/29/25 12:17) anger Medication List - Last Reconciled 08/29/25 by Shonda Caldwell MD albuterol sulfate 90 mcg/actuation 1 inh inhalation QID PRN clonazepam mg PO DAILY gabapentin 800 mg PO BEDTIME lamotrigine 100 mg PO DAILY simvastatin 20 mg PO DAILY trazodone mg PO Tobacco use date assessed: 08/29/25 Dental Screening Dental Screen Date: 08/29/25 Did you have a dental visit in the last 12 months?: No Did you have a dental problem in the last 6 months where you did not have access to dental care?: No Was dental information given to patient?: Patient has dentist HPI HPI Comments History of Present Illness Details History of Present Illness The patient is a 50 year old female presenting for an ENT referral for management of sialolithiasis. Sialolithiasis: - The patient reports symptoms have been present for over a month. - She was seen at an urgent care facilit y a week prior to her ER visit and was prescribed a one-week course of cephalexin 500 mg BID. - Due to persistent pain, she presented to the emergency room on August 21. - In the ER, her vital signs and white b lood cell count were normal. - A CT scan of the neck revealed small s tones in the right submandibular salivary gland with minimal asymmetric enlargement of the right sublingual gland secondary to mass effect. - She reports intermittent pain and swel ling, which can be bilateral, though the stones were identified on the right. - She has been taking ibuprofen twice da aminta and has tried sucking on mabel and sour candies, which has caused nausea. - She is a smoker, which was noted as a concern for cancer by the urgent care provider. Tonsillar Hypertrophy: - The patient reports that a structure i n her throat, possibly a tonsil, visibly protrudes when she coughs hard. - She denies any history of recurrent to nsillitis.. Diagnostic Results: - CT scan of the soft tissues of the nec k: Showed a couple of small stones in the right submandibular salivary gland with minimal asymmetric enlargement of the right sublingual gland, likely secondary to a sialolith. - Laboratory tests (from ER visit): Whit e blood cell count was within normal limits. FOR[facility]LY [facility], [facility] Medical History Marijuana smoker Asthma Anxiety History of OCD (obsessive compulsive disorder) Bipolar disorder PONV (postoperative nausea and vomiting) Constipation GERD (gastroesophageal reflux disease) Smoker Chronic bronchitis Cough Surgical History Hx of tubal ligation Family History Other Mental health disorder Social History Housing: Apartment Are you a primary medicare coordinator to a significant other at home: No Do you presently have visiting nurse or other home services: No Alcohol intake: unknown Patient Tobacco Use Status: Current everyday Tobacco user Tobacco use type: Cigarette Cigarettes Per Day: 10 e-Cigarette/Vaping Use: Never Used Substance Use Type: Marijuana service: No Current occupational status: employed Cognitive needs: No Hearing needs: No Vision needs: Yes Questionnaire Thrive Questionnaire Date Thrive assessed: 10/06/24 I am a: Patient What is your living situation today?: I have a steady place to live Within the past 12 months, did the food you bought not last and you didn't have the money to get more?: Never true Within the past 12 months, did you worry whether your food would run out before you got money to buy more?: Never true Do you have trouble paying for medicines?: No Do you have trouble getting transportation to medical appointments?: No Do you have trouble paying your heating and electricity bill?: No Do you have trouble taking care of your child, family member or friend?: No Do you have trouble with day-to-day activities such as bathing, preparing meals, shopping, managing finances, etc.?: No Are you currently unemployed and looking for a job?: No Are you interested in more education?: No Currently or been in a relationship where the following occur: No concerns reported THRIVE Score: 0 AUDIT C Alcohol Use Questionnaire (AUDIT-C) 1. How often do you have a drink containing alcohol?: Never 3. How often do you have six or more drinks on one occasion?: Never Total Score: 0 Score Reviewed/Action Taken: Yes ADDIE-7 AMB Questionnaire ADDIE-7 Date ADDIE - 7 assessed: 10/06/24 Source: Developed by Drs. Ulises Thakur, Lia Banerjee, Sulaiman Berg and colleagues, with an educational javon from [employer]. Review of Systems Narrative Review of Systems - General: No fever no chills - Neurological: No headaches no dizziness - Ear nose throat: no hearing difficulty no ear pain - Cardiovascular: No syncope, no chest pain, no palpitations - Gastrointestinal: No nausea vomiting or diarrhea - Endocrine: No polyuria polydipsia no heat intolerance - Genitourinary: No dysuria , no blood in urine Physical exam (Primary Care) Vital Signs: Last Vital Signs Pulse 76 08/29/25 12:17 Resp 18 08/29/25 12:17 BP 130/88 08/29/25 12:17 Pulse Ox 98 08/29/25 12:17 Oxygen Delivery Method Room Air 08/29/25 12:17 BMI result Body Mass Index 26.5 Tobacco/Smoking Status: Tobacco use Status Tobacco use date assessed 08/29/25 08/29/25 12:19 Patient Tobacco Use Status Current everyday Tobacco 08/29/25 12:19 Tobacco use type Cigarette 08/29/25 12:19 e-Cigarette/Vaping Use Never Used 08/29/25 12:19 Thrive Assessment: Date of Thrive Assessment Date Thrive assessed 10/06/24 08/29/25 12:19 Currently or been in a relationship where the following occur: No concerns reported Narrative Physical Exam General: No acute distress Neck: Supple, submandibular firmness and discomfort with palpation right side Respiratory system: Able to talk in full sentences, no audible wheeze Gastrointestinal: No pain Extremities: No new findings CHEMICAL PROCESSOR: Alert awake oriented x3 motor intact Skin: Normal turgor Coding Level of Care Code Est Pt Level 4 (01097) Diagnoses Submandibular duct obstruction K11.8 Time Spent (min) 30 Comment chart / ER notes review / face to face / coordination of care Assessment & Plan Assessment & Plan (1) Submandibular duct obstruction: Code(s): K11.8 - Other diseases of salivary glands Category: Medical Plan Problem List - Sialolithiasis - Tonsillar hypertrophy - ER room visit f.u Plan - A referral has been placed for the patient to see an ENT specialist for evaluation and management of sialolithiasis. - The patient was advised she can also have the ENT specialist evaluate her tonsils. - The patient was provided with the contact information for [facility] to schedule an appointment. - She was advised to continue using ibuprofen for pain and attempting sialogogues like sour candies in the interim. - Reassured the patient that her condition is not considered urgent. Orders: Referrals Ear/Nose/Throat Referral K11.8 - Other diseases of salivary glands
[2025-08-29 12:17] VITALS: BP 130/88; PULSE 76; RESP 18; O2SAT 98; BMI 26.5
== END 2025-08-29 13:36 | disposition home or self-care (01) ==
LOC: HO.HMCC 12:14
PROVIDERS: PCP Internal Medicine; Visit Provider Internal Medicine
DX: K11.8 Other diseases of salivary glands (principal)